=== PATIENT | female | born 1960 | race Caucasian/White ===

== ENCOUNTER 2017-07-27 08:52 | Emergency (ER) | payer MEDICAID ==
[2017-07-27] MEDS ORDERED: SODIUM CHLORIDE 0.9% 1,000 ML IV ONE (09:24)
[2017-07-27] MEDS ORDERED: METOPROLOL 5 MG/5 ML VIAL IVP STA (09:25)
--- NOTE | 2017-07-27 09:28 | ED Physician Documentation ---
PD HPI CHEST PAIN - Stated complaint Stated Complaint: CHEST PX - Chief complaint Chief Complaint: Cardiac - History obtained from History obtained from: Patient - History of Present Illness Timing - onset: How many days ago (5) Timing - onset during: Light activity Timing - duration: Days (5) Timing - details: Gradual onset, Still present, Waxing and waning Quality: Pressure Location: Substernal, Other (upper chest) Improved by: Rest Worsened by: Exertion Associated symptoms: Shortness of air, Diaphoresis, Nausea, Cough Similar symptoms before: Has not had sx before Recently seen: Not recently seen - Additional information Additional information: 56-year-old female with a prior history of hypertension and borderline diabetes has developed pain in her shoulder blades about 5 days ago and this pain is progressively become worse and is worse with exertion. She does have 33 steps in her house she is been having to stop on the steps to rest and drink water to get the pain to go away. She has noted a increase in her symptoms over the past 24 hours and she is coming to the emergency department. She thought at first this may be a upper respiratory infection and expected it to improve. When symptoms worsened she became concerned and came in. She has a family history of coronary disease with her grandfather dying at age 56 she has multiple family members that have had early coronary disease. She herself has been off of treatment for hypertension since 2008 and does not currently take any medications. She last saw her primary in June. Review of Systems Constitutional: reports: Fatigue, Sweats. denies: Fever, Chills, Myalgias Eyes: denies: Decreased vision Ears: denies: Ear pain Nose: denies: Rhinorrhea / runny nose, Congestion Throat: denies: Sore throat Cardiac: reports: Chest pain / pressure. denies: Palpitations, Pedal edema, Calf pain Respiratory: reports: Dyspnea, Cough GI: denies: Abdominal Pain, Nausea, Vomiting : denies: Dysuria, Frequency Skin: denies: Rash Musculoskeletal: reports: Back pain. denies: Neck pain Neurologic: denies: Generalized weakness, Focal weakness, Numbness, Difficulty speaking PD PAST MEDICAL HISTORY - Present Medications Home Medications: Ambulatory Orders Medication Instructions Recorded Confirmed No Known Home Medications [No 07/27/17 07/27/17 Known Home Medications] - Allergies Allergies/Adverse Reactions: Allergies Allergy/AdvReac Type Severity Reaction Status Date / Time codeine Allergy Unknown Verified 07/27/17 09:07 hydrocodone [From Vicodin] Allergy Unknown Verified 07/27/17 09:07 PD ED PE NORMAL - Vitals Vital signs reviewed: Yes (Marked hypertension) - General General: Alert and oriented X 3, No acute distress, Well developed/nourished - HEENT HEENT: Atraumatic, PERRL, EOMI, Other (Minimal inflammation of the right TM the mucous membranes are dry.) - Neck Neck: Supple, no meningeal sign, No bony TTP - Cardiac Cardiac: RRR, No murmur - Respiratory Respiratory: No respiratory distress, Clear bilaterally, Other (There is no tenderness to the chest wall.) - Abdomen Abdomen: Soft, Non tender - Back Back: No CVA TTP, No spinal TTP - Derm Derm: Normal color, Warm and dry, No rash - Extremities Extremities: No deformity, No edema - Neuro Neuro: No motor deficit, No sensory deficit Eye Opening: Spontaneous Motor: Obeys Commands Verbal: Oriented GCS Score: 15 - Psych Psych: Normal mood, Normal affect Results - Vitals Vitals: Vital Signs - 24 hr 07/27/17 07/27/17 07/27/17 09:02 09:30 09:45 Temperature 36.5 C Heart Rate 77 81 78 Respiratory 18 20 Rate Blood Pressure 226/102 H 205/101 H 184/88 H O2 Saturation 98 97 07/27/17 07/27/17 07/27/17 09:50 10:10 10:15 Temperature Heart Rate 62 60 56 L Respiratory 20 Rate Blood Pressure 178/80 H 184/86 H 182/88 H O2 Saturation Oxygen O2 Source Room air - EKG (time done) 0905 Rate: Rate (enter#) (70) Rhythm: NSR Intervals: Prolonged QT Ischemia: T wave inversion (anterior) Compare to prior EKG: Old EKG unavailable Computer interpretation: Agree with computer - Labs Labs: Laboratory Tests 07/27/17 07/27/17 07/27/17 09:10 09:10 09:10 WBC 6.4 RBC 4.68 Hgb 13.7 Hct 40.2 MCV 85.8 MCH 29.3 MCHC 34.2 RDW 12.9 Plt Count 175 MPV 8.7 Neut # 3.9 Lymph # 1.8 [place] # 0.4 Eos # 0.2 Baso # 0.1 Absolute Nucleated RBC 0.00 Nucleated RBC % 0.0 Sodium 135 Potassium 4.1 Chloride 98 L Carbon Dioxide 22 Anion Gap 15.0 H BUN 15 Creatinine 1.0 Estimated GFR (MDRD) 58 L Glucose 310 H Calcium 9.4 Total Bilirubin 0.5 AST 27 ALT 22 Alkaline Phosphatase 69 Troponin I 0.05 Total Protein 7.6 Albumin 4.1 Globulin 3.5 Albumin/Globulin Ratio 1.2 Lipase 23 Urine Color Urine Clarity Urine pH Ur Specific [place] Urine Protein Urine Glucose (UA) Urine Ketones Urine Occult Blood Urine Nitrite Urine Bilirubin Urine Urobilinogen Ur Leukocyte Esterase Ur Microscopic Review Urine Culture Comments 07/27/17 09:53 WBC RBC Hgb Hct MCV MCH MCHC RDW Plt Count MPV Neut # Lymph # Dukes # Eos # Baso # Absolute Nucleated RBC Nucleated RBC % Sodium Potassium Chloride Carbon Dioxide Anion Gap BUN Creatinine Estimated GFR (MDRD) Glucose Calcium Total Bilirubin AST ALT Alkaline Phosphatase Troponin I Total Protein Albumin Globulin Albumin/Globulin Ratio Lipase Urine Color YELLOW Urine Clarity CLEAR Urine pH 7.0 Ur Specific [place] <=1.005 Urine Protein NEGATIVE Urine Glucose (UA) 500 H Urine Ketones NEGATIVE Urine Occult Blood NEGATIVE Urine Nitrite NEGATIVE Urine Bilirubin NEGATIVE Urine Urobilinogen 0.2 (NORMAL) Ur Leukocyte Esterase NEGATIVE Ur Microscopic Review NOT INDICATED Urine Culture Comments NOT INDICATED - Rads (name of study) 2 view chest Radiology: Prelim report reviewed (Impression: Normal two-view chest radiography.), EMP read indepedently, See rad report Procedures - IVC sono (time) 0920 Bedside IVC sono: IVC measures (cm) (1.2), IVC collapsed c insp (cm) (complete) , Dehydration PD MEDICAL DECISION MAKING - ED course Complexity details: reviewed old records, reviewed results, re-evaluated patient , considered differential, d/w patient ED course: 56-year-old female with a history of untreated hypertension presents with 5 days of exertionally related chest pain relieved by rest with progression of symptoms. Her initial electrocardiogram shows inversion of T waves in the anterior leads there is a troponin elevated at 0.05. She is initially given IV saline and metoprolol 5mg IV with improvement in her blood pressure and complaints of feeling dry. Dr. Dragan Sheffield is consulted in the case and will accept the patient in transfer and recommends nitro paste, aspirin and heparin. Departure - Departure Disposition: 02 Transfer Acute Care Hosp Clinical Impression: Unstable angina Condition: Fair
[2017-07-27 09:31] LABS: BASOPHILS # (AUTO) 0.1 10^3/uL (0.0-0.1); EOSINOPHILS # (AUTO) 0.2 10^3/uL (0.0-0.7); EOSINOPHILS % (AUTO) 2.9 %; HCT - HEMATOCRIT 40.2 % (37.0-47.0); HGB - HEMOGLOBIN 13.7 g/dL (12.0-16.0); LYMPHOCYTES # (AUTO) 1.8 10^3/uL (1.5-3.5); LYMPHOCYTES % (AUTO) 28.3 %; MEAN CORPUSCULAR HEMOGLOBIN 29.3 pg (27.0-31.0); MEAN CORPUSCULAR HGB CONC 34.2 g/dL (32.0-36.0); MEAN CORPUSCULAR VOLUME 85.8 fL (81.0-99.0); MEAN PLATELET VOLUME 8.7 fL (7.9-10.8); MONOCYTES # (AUTO) 0.4 10^3/uL (0.0-1.0); MONOCYTES % (AUTO) 6.8 %; NEUTROPHILS # (AUTO) 3.9 10^3/uL (1.5-6.6); RED BLOOD COUNT 4.68 10^6/uL (4.20-5.40); RED CELL DISTRIBUTION WIDTH 12.9 % (12.0-15.0); UNCORRECTED WHITE BLOOD COUNT 6.4 x10^3/uL; WHITE BLOOD COUNT 6.4 x10^3/uL (4.8-10.8)
[2017-07-27] MEDS ORDERED: METOPROLOL 5 MG/5 ML VIAL IVP ONE (09:36)
[2017-07-27 09:41] LABS: ALBUMIN/GLOBULIN RATIO 1.2 (1.0-2.2); BILIRUBIN,TOTAL 0.5 mg/dL (0.2-1.0); CALCIUM 9.4 mg/dL (8.5-10.3); POTASSIUM 4.1 mmol/L (3.5-5.0); TOTAL PROTEIN 7.6 g/dL (6.7-8.2)
[2017-07-27 10:20] LABS: BILIRUBIN,URINE NEGATIVE (NEGATIVE)
[2017-07-27 10:21] LABS: UA CHARGE (STRIP ONLY) YES; UR CULTURE IF IND NOT INDICATED
--- NOTE | 2017-07-27 10:37 | XRAY Preliminary Report ---
Exam: XR CHEST 2 VIEW PA/LAT IMPRESSION: Normal 2-view chest radiography. [facility] SITE ID: [id number]
--- NOTE | 2017-07-27 10:40 | XRAY Report ---
EXAM: CHEST RADIOGRAPHY EXAM DATE: 07/27/2017 10:09 AM. CLINICAL HISTORY: Chest pain . COMPARISON: 09/05/2010. TECHNIQUE: 2 views. FINDINGS: Lungs/Pleura: No focal opacities evident. No pleural effusion. No pneumothorax. Normal volumes. Mediastinum: Heart and mediastinal contours are unremarkable. Other: None. IMPRESSION: Normal 2-view chest radiography. [facility] Referring Provider Line: [phone] SITE ID: [id number]
[2017-07-27] MEDS ORDERED: ASPIRIN CHEW 81 MG TABLET PO STA (11:05)
[2017-07-27] MEDS ORDERED: HEPARIN 5,000 UNIT/ML VIAL IVP ONE (11:05)
[2017-07-27] MEDS ORDERED: NITROGLYCERIN 2% PASTE TOP STA (11:06)
[2017-07-27] MEDS ORDERED: NITROGLYCERIN 2% PASTE TOP ONE (11:19)
[2017-07-27] MEDS ORDERED: HEPARIN 5,000 UNIT/ML VIAL ONE (11:20)
[2017-07-27] MEDS ORDERED: ASPIRIN CHEW 81 MG TABLET ONE (11:20)
[2017-07-27 13:01] VITALS: BP 223/105
== END 2017-07-27 13:00 | disposition short-term general hospital (02) ==
LOC: ED 08:52
DX: I20.0 Unstable angina (principal); I10 Essential (primary) hypertension; R73.03 Prediabetes
CPT/HCPCS: 36415; 71020; 80053; 81003; 83690; 84484; 85025; 93005; 96361; 96374; 96375; 99284; A9270; 81001; 87086

== ENCOUNTER 2017-07-27 13:15 | Outpatient (CLI) | payer MEDICAID | END 2017-07-27 13:16 | disposition short-term general hospital (02) | LOC: EMS 13:15 | PROVIDERS: ATTEND Surgery | DX: I20.0 Unstable angina (principal) | CPT/HCPCS: A0425; A0426 ==

== ENCOUNTER 2017-08-08 15:22 | Observation (INO) | payer MEDICAID ==
[2017-08-08 15:42] LABS: BASOPHILS % (AUTO) 0.5 %; EOSINOPHILS # (AUTO) 0.2 10^3/uL (0.0-0.7); EOSINOPHILS % (AUTO) 2.5 %; HCT - HEMATOCRIT 39.1 % (37.0-47.0); HGB - HEMOGLOBIN 13.4 g/dL (12.0-16.0); LYMPHOCYTES # (AUTO) 2.5 10^3/uL (1.5-3.5); LYMPHOCYTES % (AUTO) 28.7 %; MEAN CORPUSCULAR HEMOGLOBIN 29.2 pg (27.0-31.0); MEAN CORPUSCULAR HGB CONC 34.3 g/dL (32.0-36.0); MEAN CORPUSCULAR VOLUME 85.1 fL (81.0-99.0); MEAN PLATELET VOLUME 9.5 fL (7.9-10.8); MONOCYTES # (AUTO) 0.7 10^3/uL (0.0-1.0); MONOCYTES % (AUTO) 8.2 %; NEUTROPHILS # (AUTO) 5.2 10^3/uL (1.5-6.6); NEUTROPHILS % (AUTO) 60.1 %; RED CELL DISTRIBUTION WIDTH 12.9 % (12.0-15.0); UNCORRECTED WHITE BLOOD COUNT 8.7 x10^3/uL; WHITE BLOOD COUNT 8.7 x10^3/uL (4.8-10.8)
[2017-08-08] MEDS ORDERED: ASPIRIN CHEW 81 MG TABLET PO STA (15:45)
[2017-08-08] MEDS ORDERED: NITROGLYCERIN 2% PASTE TOP STA (15:45)
[2017-08-08] MEDS ORDERED: METOPROLOL 5 MG/5 ML VIAL IVP STA (15:45)
--- NOTE | 2017-08-08 15:47 | ED Physician Documentation ---
PD HPI CHEST PAIN - Stated complaint Stated Complaint: CHEST PRESSURE/RAPID HR - Chief complaint Chief Complaint: Cardiac - History obtained from History obtained from: Patient - History of Present Illness Timing - onset: Other (56-year-old woman who about 10 days ago was transferred from [facility] to [facility] for chest pain, she was found to have coronary disease. Per her description she has single stent placed in the right coronary artery and she also had left coronary disease which is being medically managed. She has felt well since discharge and is on all of her medications which she is compliant with. Today at around 11 AM she started to feel central chest burning with sensation of a heavy heartbeat, this is similar but less severe than her prior anginal equivalent but led her to have the evaluation recently.) Review of Systems Ten Systems: 10 systems reviewed and negative Constitutional: reports: Reviewed and negative Eyes: reports: Reviewed and negative Ears: reports: Reviewed and negative Nose: reports: Reviewed and negative Cardiac: reports: Chest pain / pressure, Palpitations. denies: Pedal edema, Calf pain Respiratory: denies: Dyspnea, Cough GI: denies: Abdominal Pain PD PAST MEDICAL HISTORY - Past Medical History Past Medical History: Yes Cardiovascular: Hypertension, High cholesterol, Coronary artery disease Endocrine/Autoimmune: Type 2 diabetes - Past Surgical History Past Surgical History: Yes General: Other - Present Medications Home Medications: Ambulatory Orders Medication Instructions Recorded Confirmed Aspirin Chewable [St Oleg 81 mg PO DAILY 08/08/17 08/08/17 Aspirin] Atorvastatin Calcium 40 mg PO DAILY 08/08/17 08/08/17 Clopidogrel Bisulfate [Clopidogrel] 75 mg PO DAILY 08/08/17 08/08/17 Lisinopril 10 mg PO DAILY 08/08/17 08/08/17 Lorazepam [Ativan] 0.5 mg PO PRN PRN 08/08/17 08/08/17 Metformin HCl 500 mg PO BID 08/08/17 08/08/17 Metoprolol Succinate [Toprol Xl] 25 mg PO DAILY 08/08/17 08/08/17 Thyroid,Pork [Nature-Throid] 65 mg PO DAILY 08/08/17 08/08/17 - Allergies Allergies/Adverse Reactions: Allergies Allergy/AdvReac Type Severity Reaction Status Date / Time codeine Allergy Unknown Verified 07/27/17 09:07 hydrocodone [From Vicodin] Allergy Unknown Verified 07/27/17 09:07 - Social History Does the pt smoke?: No Smoking Status: Never smoker Does the pt drink ETOH?: No Does the pt have substance abuse?: No - Family History Family history: reports: Non contributory PD ED PE NORMAL - Vitals Vital signs reviewed: Yes - General General: Alert and oriented X 3, No acute distress - HEENT HEENT: PERRL, EOMI - Neck Neck: Supple, no meningeal sign, No bony TTP - Cardiac Cardiac: RRR, No murmur - Respiratory Respiratory: No respiratory distress, Clear bilaterally - Abdomen Abdomen: Normal bowel sounds, Soft, Non tender - Back Back: No CVA TTP, No spinal TTP - Extremities Extremities: No edema, No calf tenderness / cord - Neuro Neuro: Alert and oriented X 3, Normal speech - Psych Psych: Normal mood, Normal affect Results - Vitals Vitals: Vital Signs - 24 hr 08/08/17 08/08/17 08/08/17 15:24 15:58 15:59 Temperature 36.7 C Heart Rate 73 66 Respiratory 17 16 Rate Blood Pressure 192/78 H 175/77 H 149/71 H O2 Saturation 96 96 08/08/17 08/08/17 16:04 16:06 Temperature Heart Rate 65 63 Respiratory 16 16 Rate Blood Pressure 136/62 H 130/68 O2 Saturation 98 96 Oxygen O2 Source Room air - Labs Labs: Laboratory Tests 08/08/17 08/08/17 08/08/17 15:30 15:30 15:30 WBC 8.7 RBC 4.60 Hgb 13.4 Hct 39.1 MCV 85.1 MCH 29.2 MCHC 34.3 RDW 12.9 Plt Count 198 MPV 9.5 Neut # 5.2 Lymph # 2.5 [place] # 0.7 Eos # 0.2 Baso # 0.0 Absolute Nucleated RBC 0.00 Nucleated RBC % 0.0 Sodium 136 Potassium 4.0 Chloride 101 Carbon Dioxide 22 Anion Gap 13.0 BUN 15 Creatinine 1.1 H Estimated GFR (MDRD) 52 L Glucose 183 H Calcium 9.7 Total Bilirubin 0.5 AST 24 ALT 24 Alkaline Phosphatase 74 Troponin I < 0.04 Total Protein 7.8 Albumin 4.6 Globulin 3.2 Albumin/Globulin Ratio 1.4 Lipase 31 PD MEDICAL DECISION MAKING - ED course ED course: 56-year-old woman with recent coronary angiography with intervention to the right coronary artery and per her description left coronary disease that is being medically managed presents with recurrent chest pain similar to prior angina. Her EKG is notable for deeply inverted T waves in the anterior precordium. I spoke with Dr. Ambrose about, the implementation engineer on-call for that group at 4:05 PM and he will review the records and call me back. He called back after reviewing her angiogram, she had a discrete lesion in the right coronary which was stented, and has diffuse disease of the LAD which can only be medically managed, she is not a candidate for stenting or grafting given the diffuse nature of that disease. Call to Dr Jaimes for admit [id number] Departure - Departure Disposition: ED Place in Observation Clinical Impression: Unstable angina Condition: Stable
[2017-08-08 15:51] LABS: ALBUMIN/GLOBULIN RATIO 1.4 (1.0-2.2); BILIRUBIN,TOTAL 0.5 mg/dL (0.2-1.0); CALCIUM 9.7 mg/dL (8.5-10.3); CREATININE 1.1 mg/dL (0.4-1.0); TOTAL PROTEIN 7.8 g/dL (6.7-8.2)
--- NOTE | 2017-08-08 15:51 | XRAY Preliminary Report ---
Exam: XR CHEST 1 VIEW IMPRESSION: 1. Stable AP chest. No acute cardiopulmonary findings radiographically. [facility] SITE ID: [id number]
--- NOTE | 2017-08-08 15:54 | XRAY Report ---
EXAM: CHEST RADIOGRAPHY EXAM DATE: 08/08/2017 03:40 PM. CLINICAL HISTORY: Chest pain. Coronary stent placed last week. COMPARISON: 07/27/2017. TECHNIQUE: 1 view. FINDINGS: Lungs/Pleura: No focal opacities or vascular congestion. No pleural effusion or pneumothorax. Mediastinum: Stable normal cardiomediastinal silhouette. Other: No acute fracture identified. IMPRESSION: 1. Stable AP chest. No acute cardiopulmonary findings radiographically. [facility] Referring Provider Line: [phone] SITE ID: [id number]
[2017-08-08] MEDS ORDERED: NITROGLYCERIN 2% PASTE TOP ONE (15:57)
[2017-08-08] MEDS ORDERED: ASPIRIN CHEW 81 MG TABLET ONE (15:58)
[2017-08-08] MEDS ORDERED: METOPROLOL 5 MG/5 ML VIAL IVP ONE (15:58)
[2017-08-08] MEDS ORDERED: PROCHLORPERAZINE 10 MG/2 ML VIAL IVP PRN (17:28)
[2017-08-08] MEDS ORDERED: SODIUM CHLORIDE FLUSH 0.9% 10 ML SYRINGE IVP PRN (17:28)
[2017-08-08] MEDS ORDERED: ACETAMINOPHEN 325 MG TABLET PO PRN (17:28)
[2017-08-08] MEDS ORDERED: NITROGLYCERIN 2% PASTE TOP SCH (18:00)
[2017-08-08] MEDS: SODIUM CHLORIDE FLUSH 0.9% 10 ML SYRINGE IVP SCH (21:22)
[2017-08-08] MEDS: LORazepam 0.5 MG TABLET PO PRN (21:22)
[2017-08-08] MEDS: NITROGLYCERIN 2% PASTE TOP SCH (23:52)
[2017-08-09 04:37] LABS: CHOL/HDL RATIO 2.5 (<4.4); CHOLESTEROL 96 mg/dL; HDL CHOLESTEROL 39 mg/dL; LDL/HDL RATIO 1.1 (<4.4); TRIGLYCERIDES 72 mg/dL; VLDL CHOLESTEROL 14 mg/dL
[2017-08-09] MEDS ORDERED: THYROID 60 MG TABLET PO SCH (06:00)
[2017-08-09] MEDS: NITROGLYCERIN 2% PASTE TOP SCH (07:38)
[2017-08-09] MEDS: SODIUM CHLORIDE FLUSH 0.9% 10 ML SYRINGE IVP SCH ×2 (07:39→14:53)
[2017-08-09] MEDS: metFORMIN 500 MG TABLET PO SCH ×2 (08:03→17:11)
[2017-08-09] MEDS ORDERED: CLOPIDOGREL 75 MG TABLET PO SCH (09:00)
[2017-08-09] MEDS ORDERED: ASPIRIN CHEW 81 MG TABLET PO SCH (09:00)
[2017-08-09] MEDS ORDERED: METOPROLOL SUCCINATE 25 MG TABLET PO SCH (09:00)
[2017-08-09] MEDS ORDERED: ENOXAPARIN 40 MG/0.4 ML SYRINGE SUBQ SCH (09:00)
[2017-08-09] MEDS ORDERED: POLYETHYLENE GLYCOL 3350 17 GM PACKET PO SCH (09:00)
[2017-08-09] MEDS ORDERED: ATORVASTATIN 40 MG TABLET PO SCH (09:00)
[2017-08-09] MEDS ORDERED: LISINOPRIL 20 MG TABLET PO SCH (09:00)
[2017-08-09] MEDS: ISOSORBIDE MONONITRATE ER 30 MG TABLET PO SCH ×2 (09:27→10:33)
[2017-08-09] MEDS: FAMOTIDINE 20 MG TABLET PO SCH ×2 (09:28→10:32)
[2017-08-09] MEDS: LORazepam 0.5 MG TABLET PO PRN (09:57)
[2017-08-09 13:19] VITALS: BP 132/65
--- NOTE | 2017-08-09 17:20 | Discharge Plan ---
Discharge Plan Disposition: Home, Self Care Condition: Stable Prescriptions: Nitroglycerin [Nitrostat] 0.4 mg SL Q5MIN PRN #100 tablet PRN Reason: Chest Pain Isosorbide Mononitrate ER [Imdur] 30 mg PO DAILY #30 tablet Diet: Cardiac Activity Restrictions: Activity as Tolerated Shower Restrictions: No Driving Restrictions: No Instruction Topics: Desiccated Thyroid oral tablets and capsules, Angina Unstable, Nitroglycerin Fast Acting Additional Instructions or Follow Up instructions: See your provider if needed for help with the thyroid medication. See your Manager Program as previously instructed. Take the new Imdur medication daily. ALSO, you can use a Nitroglycerine under the tongue if you get a sudden attack of chest pain (angina): be seated and you can take 1 tablet under the tongue every 5-10 minutes until the discomfort is resolved. If it's not better after 3 tablets, come to an Emergenct Room. Start attending Cardiac Rehab here. No Smoking: If you smoke, Please STOP! Call for help. Follow-up with: Nalini Mayers PA-C [Primary Care Provider] -
--- NOTE | 2017-08-29 13:22 | HISTORY & PHYSICAL EXAMINATION ---
DATE OF service/OBS Placement : 08/08/2017 Physician: Cortney Joiner MD CHIEF COMPLAINT: Chest pain. PAST MEDICAL HISTORY: Coronary artery disease with recent stenting in the right coronary artery, hypertension, hyperlipidemia, diabetes, obesity. HISTORY OF PRESENT ILLNESS: This is a 56-year-old white female with a history of elevated cholesterol, hypertension, diabetes, who was seen here approximately 10 days ago for chest pain and was transferred to the [facility] for coronary angiography. According to records, she had coronary artery disease, discrete in the right coronary artery where a stent was placed, and also diffuse disease in the left coronary system where no stenting could be done ,and the vessel was too small for bypass, therefore medical management was advised. The patient was discharged from [facility] with new medications and has been compliant with these. Since that admission, she has had no further chest pain until today, when she had chest pressure associated with palpitations, less severe than her prior discomfort, but she came to the emergency room. In the emergency room, she had resolution of her symptoms and none until I am seeing her now, stating she is nervous MEDICATIONS AT HOME 1. Baby aspirin daily. 2. Lipitor 40 mg daily. 3. Plavix 75 mg daily. 4. Lisinopril 10 mg daily. 5. Ativan 0.5 mg p.r.n. 6. Metformin 500 mg p.o. b.i.d. 7. Toprol-XL 25 mg daily. 8. Nature-Throid 65 mg p.o. daily. ALLERGIES 1. CODEINE. 2. HYDROCODONE. SOCIAL HISTORY: The patient never smoked, drinks no alcohol, denies any drug use. FAMILY HISTORY: No history of early coronary artery disease and no inherited history that she reports. REVIEW OF SYSTEMS: A comprehensive review of system was performed and is negative, except for the symptoms described above. PHYSICAL EXAMINATION GENERAL: White female who is in no distress. VITAL SIGNS: Blood pressure 130/68, pulse 60, sinus rhythm. Afebrile. Oxygen saturation 98 on room air. HEENT: Unremarkable with moist oral mucosa. NECK: No JVD or carotid bruits. No thyromegaly or lymphadenopathy. LUNGS: Clear. HEART: Heart sounds normal. No audible murmur. No gallop or heave. ABDOMEN: Soft with positive bowel sounds. Nontender. No organomegaly. EXTREMITIES: No clubbing, cyanosis, or edema. Good dorsalis pedis pulses. NEUROLOGIC: Grossly intact. STUDIES LABORATORY DATA: Normal electrolytes, normal BUN and creatinine. Troponin not detectable. Normal liver tests. Normal CBC. INR was not done. Chest x-ray unremarkable. EKG: Normal sinus rhythm with deep anterior T-wave inversions in V2 through V5 , as well as lateral minimal T-wave inversions in leads I and V6. IMPRESSION/DIAGNOSES 1. Unstable angina. 2. Coronary artery disease with recent stenting. 3. Diabetes. 4. Hypertension. 5. Hyperlipidemia. PLAN: Place the patient in observation on telemetry to watch for arrhythmias. Cycle troponins to rule out an acute coronary event. Follow her EKG for ischemic changes. Increase the patient's medical management since no further intervention can be done based on her coronary anatomy. Patient was discharged without any sublingual nitroglycerin or long-acting nitrates and therefore, these will be started. Continue with her other diabetic, hypertensive, and cardiac medications. There should also be consideration that she is a Plavix nonresponder, if adjusting her antianginals alone does not control her symptoms. It was advised that the patient start cardiac rehab as was discussed at the time of her discharge from [facility], since the patient has postponed this for unclear reasons, possibly because of the upcoming [place] holidays. DEEP VENOUS THROMBOSIS PROPHYLAXIS: Lovenox. CODE STATUS: FULL CODE. ATTESTATION: It is expected the patient will be discharged or transferred within 96 hours: Yes. TD: 08/29/2017 13:13 NIKO
--- NOTE | 2017-08-29 13:23 | DISCHARGE SUMMARY ---
DATE OF ADM/placement in OBS: 08/08/2017 DATE OF DISCHARGE: 08/09/2017 Physician: Cortney Joiner MD HISTORY OF PRESENT ILLNESS: This is a 56-year-old white female with diabetes, hypertension, coronary artery disease with stenting done approximately 10 days ago for unstable angina, who presented with unstable angina and was admitted for observation and management of her symptoms. HOSPITAL COURSE AND DISCHARGE DIAGNOSES 1. Unstable angina. The patient had additional medications begun for medical management of her coronary disease. Discussion with her coach professional athletes yesterday by our emergency room doctor confirmed that she had nothing else on the recent angiogram that was revascularizable. Patient ruled out for an ME by troponins done here, all were at nondetectable levels. The patient was started on long-acting nitrates and sublingual nitroglycerine. She had no further anginal episodes while here and was also assessed with activity, walking in the hallway, and on stairs. The patient was advised to have cardiac rehab begun and her appointment with Outpatient Cardiac Rehab was moved forward for her convenience. 2. Coronary disease with recent stenting. Her [facility] discharge medications were all continued including Plavix. It was noted that if she is a Plavix nonresponder, she could have continued symptoms and may need adjustment of her antiplatelet agent. This should be done in discussion with her coach professional athletes in followup after discharge. Continued risk factor management was advised and teaching was done while here. 3. Diabetes. Continue with her diet and medications. 4. Hypertension. Continue with her low-salt diet and medications. The addition of Imdur will also help blood pressure control. 5. Hyperlipidemia. Her labs were checked for cholesterol control and showed a total cholesterol of 72, LDL of 43, HDL of 39, and triglycerides of 72. She was advised to have increased fish, olive oil, and dietary management to improve her HDL. FOLLOWUP APPOINTMENT: Start cardiac rehab here in the upcoming weeks, follow up with her PCP as previously scheduled, follow up with her coach professional athletes as previously scheduled. DNR STATUS: FULL CODE. TOTAL TIME REQUIRED FOR THIS DISCHARGE: 30 minutes. TD: 08/29/2017 13:45 NIKO
== END 2017-08-09 18:20 | disposition home or self-care (01) ==
LOC: ED 15:22 → OBS 17:28
PROVIDERS: ADMIT Internal Medicine; ATTEND Internal Medicine
DX: I25.110 Atherosclerotic heart disease of native coronary artery with unstable angina pectoris (principal); E11.9 Type 2 diabetes mellitus without complications; I10 Essential (primary) hypertension; E78.5 Hyperlipidemia, unspecified; Z95.5 Presence of coronary angioplasty implant and graft; Z79.82 Long term (current) use of aspirin; Z79.84 Long term (current) use of oral hypoglycemic drugs; Z79.02 Long term (current) use of antithrombotics/antiplatelets; E66.9 Obesity, unspecified; Z68.32 Body mass index [BMI] 32.0-32.9, adult
CPT/HCPCS: 36415; 71010; 80053; 80061; 83690; 83721; 84443; 84484; 85025; 93005; 96372; 96374; 99284; 99285; A9270; G0378; J1650

== ENCOUNTER 2017-08-11 11:14 | Emergency (ER) | payer MEDICAID ==
[2017-08-11 11:41] LABS: BASOPHILS % (AUTO) 0.2 %; EOSINOPHILS # (AUTO) 0.2 10^3/uL (0.0-0.7); EOSINOPHILS % (AUTO) 2.5 %; HCT - HEMATOCRIT 37.1 % (37.0-47.0); HGB - HEMOGLOBIN 12.8 g/dL (12.0-16.0); LYMPHOCYTES # (AUTO) 1.9 10^3/uL (1.5-3.5); LYMPHOCYTES % (AUTO) 30.5 %; MEAN CORPUSCULAR HEMOGLOBIN 29.7 pg (27.0-31.0); MEAN CORPUSCULAR HGB CONC 34.5 g/dL (32.0-36.0); MEAN CORPUSCULAR VOLUME 85.9 fL (81.0-99.0); MEAN PLATELET VOLUME 9.4 fL (7.9-10.8); MONOCYTES # (AUTO) 0.4 10^3/uL (0.0-1.0); MONOCYTES % (AUTO) 6.7 %; NEUTROPHILS # (AUTO) 3.7 10^3/uL (1.5-6.6); NEUTROPHILS % (AUTO) 60.1 %; RED BLOOD COUNT 4.31 10^6/uL (4.20-5.40); RED CELL DISTRIBUTION WIDTH 13.2 % (12.0-15.0); UNCORRECTED WHITE BLOOD COUNT 6.1 x10^3/uL; WHITE BLOOD COUNT 6.1 x10^3/uL (4.8-10.8)
[2017-08-11 11:55] LABS: ALBUMIN/GLOBULIN RATIO 1.3 (1.0-2.2); BILIRUBIN,TOTAL 0.6 mg/dL (0.2-1.0); CALCIUM 9.9 mg/dL (8.5-10.3); CREATININE 1.1 mg/dL (0.4-1.0); POTASSIUM 4.4 mmol/L (3.5-5.0); TOTAL PROTEIN 7.8 g/dL (6.7-8.2)
--- NOTE | 2017-08-11 12:10 | XRAY Preliminary Report ---
Exam: XR CHEST 1 VIEW IMPRESSION: No acute cardiopulmonary abnormality. [facility] SITE ID: [id number]
--- NOTE | 2017-08-11 12:13 | XRAY Report ---
EXAM: CHEST RADIOGRAPHY EXAM DATE: 08/11/2017 11:36 AM. CLINICAL HISTORY: Chest pain. COMPARISON: 03/21/2017. TECHNIQUE: 1 view. FINDINGS: Lungs/Pleura: No focal opacities evident. No pleural effusion. No pneumothorax. Mediastinum: Within exam limitations, the cardiomediastinal contour is normal. Other: None. IMPRESSION: No acute cardiopulmonary abnormality. [facility] Referring Provider Line: [phone] SITE ID: [id number]
[2017-08-11] MEDS ORDERED: METOPROLOL SUCCINATE 25 MG TABLET PO STA (12:21)
--- NOTE | 2017-08-11 12:24 | ED Physician Documentation ---
PD HPI CHEST PAIN - Stated complaint Stated Complaint: FAST HR - Chief complaint Chief Complaint: Cardiac - History obtained from History obtained from: Patient - History of Present Illness Timing - onset: Other (56-year-old woman with known coronary disease, see my note from last visit, briefly she has a recently placed stent in the right coronary artery and diffuse disease of the LAD that can only be medically managed per her brick dropper. Today with activity she developed central chest burning and took nitroglycerin, after the second dose her heart started racing. Of note this morning her heart rate was 56 per her blood pressure meter, which she does not trust, but skipped her metoprolol because of that. Of note on her last visit, that was also a day she had skipped her metoprolol. She did take her metoprolol yesterday and felt great per her.) Review of Systems Ten Systems: 10 systems reviewed and negative Constitutional: denies: Fever, Chills Cardiac: reports: Chest pain / pressure, Palpitations. denies: Pedal edema, Calf pain Respiratory: denies: Dyspnea, Cough GI: reports: Nausea. denies: Abdominal Pain PD PAST MEDICAL HISTORY - Past Medical History Past Medical History: Yes Cardiovascular: Hypertension, High cholesterol, Coronary artery disease, Angina Respiratory: None Neuro: None Endocrine/Autoimmune: Type 2 diabetes GI: None : None HEENT: None Psych: Anxiety, Panic attacks Musculoskeletal: Osteoarthritis Derm: None - Past Surgical History Past Surgical History: Yes General: Other Ortho: Other Cardiovascular: Coronary stent - Present Medications Home Medications: Ambulatory Orders Medication Instructions Recorded Confirmed Aspirin Chewable [St Oleg 81 mg PO DAILY 08/08/17 08/08/17 Aspirin] Atorvastatin Calcium 40 mg PO QPM 08/08/17 08/08/17 Clopidogrel Bisulfate [Clopidogrel] 75 mg PO DAILY 08/08/17 08/08/17 Lisinopril 10 mg PO DAILY 08/08/17 08/08/17 Lorazepam [Ativan] 0.5 mg PO TID PRN 08/08/17 08/08/17 Metformin HCl 500 mg PO BIDWM 08/08/17 08/08/17 Metoprolol Succinate [Toprol Xl] 25 mg PO DAILY 08/08/17 08/08/17 Thyroid,Pork [Nature-Throid] 65 mg PO DAILY 08/08/17 08/08/17 Isosorbide Mononitrate ER [Imdur] 30 mg PO DAILY #30 tablet 08/09/17 LORazepam [Ativan] 0.5 mg PO Q8H PRN #0 tablet 08/09/17 Nitroglycerin [Nitrostat] 0.4 mg SL Q5MIN PRN #100 tablet 08/09/17 - Allergies Allergies/Adverse Reactions: Allergies Allergy/AdvReac Type Severity Reaction Status Date / Time codeine Allergy Unknown Verified 07/27/17 09:07 hydrocodone [From Vicodin] Allergy Unknown Verified 07/27/17 09:07 - Social History Does the pt smoke?: No Smoking Status: Never smoker Does the pt drink ETOH?: No Does the pt have substance abuse?: No - POLST Patient has POLST: No PD ED PE NORMAL - Vitals Vital signs reviewed: Yes (Heart rate about 70 on my examination) - General General: Alert and oriented X 3, No acute distress - HEENT HEENT: PERRL, EOMI - Neck Neck: Supple, no meningeal sign, No bony TTP - Cardiac Cardiac: RRR, No murmur - Respiratory Respiratory: No respiratory distress, Clear bilaterally - Extremities Extremities: No edema, No calf tenderness / cord - Neuro Neuro: Alert and oriented X 3, Normal speech Results - Vitals Vitals: Vital Signs - 24 hr 08/11/17 08/11/17 11:18 11:38 Temperature 36.4 C L Heart Rate 118 H 66 Respiratory 16 18 Rate Blood Pressure 175/85 H 131/77 H O2 Saturation 100 95 Oxygen O2 Source Room air - EKG (time done) 1121 Rate: Rate (enter#) (68) Rhythm: NSR [place]: Normal Intervals: Normal SC QRS: Normal Ischemia: T wave inversion (V1 through V4, similar to 2 days ago.) Compare to prior EKG: Unchanged from prior EKG Computer interpretation: Agree with computer - Labs Labs: Laboratory Tests 08/11/17 08/11/17 08/11/17 11:30 11:30 11:30 WBC 6.1 RBC 4.31 Hgb 12.8 Hct 37.1 MCV 85.9 MCH 29.7 MCHC 34.5 RDW 13.2 Plt Count 167 MPV 9.4 Neut # 3.7 Lymph # 1.9 [place] # 0.4 Eos # 0.2 Baso # 0.0 Absolute Nucleated RBC 0.00 Nucleated RBC % 0.0 Sodium 136 Potassium 4.4 Chloride 101 Carbon Dioxide 21 Anion Gap 14.0 H BUN 18 Creatinine 1.1 H Estimated GFR (MDRD) 52 L Glucose 192 H Calcium 9.9 Total Bilirubin 0.6 AST 26 ALT 22 Alkaline Phosphatase 64 Troponin I < 0.04 Total Protein 7.8 Albumin 4.4 Globulin 3.4 Albumin/Globulin Ratio 1.3 Lipase 24 PD MEDICAL DECISION MAKING - ED course ED course: 56-year-old woman with now what seems more like stable angina with palpitations after taking nitroglycerin on a date that she did not take her metoprolol because of low heart rates. Because we can only medically manage her coronary disease I recommended that she take at least half a dose of metoprolol unless her heart rate is very low, see the discharge instructions. Departure - Departure Disposition: 01 Home, Self Care Clinical Impression: Stable angina, Tachycardia Condition: Good Record reviewed to determine appropriate education?: Yes Instructions: Nitroglycerin Fast Act Dc, ED Chest Pain Angina Stable Comments: If you do not trust your blood pressure meter to register your pulse, you can purchase an [id number] pulse oximeter which should be quite cheap at the drugstore or online. On any date where your heart rate is between 50 and 60 take a half dose of your metoprolol, you can take the other half later in the day if your pulses higher than 60. If you are heart rate is below 50 do not take any of your metoprolol, you can take it later in the day if your pulse is 65 or greater. Follow-up with your brick dropper, next available appointment.
[2017-08-11 12:35] VITALS: BP 125/69
== END 2017-08-11 12:56 | disposition home or self-care (01) ==
LOC: ED 11:14
DX: I25.119 Atherosclerotic heart disease of native coronary artery with unspecified angina pectoris (principal); R00.0 Tachycardia, unspecified; I10 Essential (primary) hypertension; E78.00 Pure hypercholesterolemia, unspecified; E11.9 Type 2 diabetes mellitus without complications; Z79.82 Long term (current) use of aspirin; Z95.5 Presence of coronary angioplasty implant and graft
CPT/HCPCS: 36415; 71010; 80053; 83690; 84484; 85025; 93005; 99283; A9270

== ENCOUNTER 2017-08-18 14:14 | Emergency (ER) | payer MEDICAID ==
[2017-08-18] MEDS ORDERED: NITROGLYCERIN 2% PASTE TOP STA (14:29)
[2017-08-18] MEDS ORDERED: ASPIRIN CHEW 81 MG TABLET PO STA (14:29)
--- NOTE | 2017-08-18 14:30 | ED Physician Documentation ---
PD HPI CHEST PAIN - Stated complaint Stated Complaint: HEART ISSUES - Chief complaint Chief Complaint: Cardiac - History obtained from History obtained from: Patient - History of Present Illness Timing - onset: Other (57-year-old woman, see my previous notes. Briefly she has known coronary disease, recently stented for a discrete lesion in the right coronary and had diffuse disease that can only be medically managed in the left anterior descending. She was seen by me 5 days ago for chest pain, has not had chest pain until today since. She developed her burning anterior anginal equivalent while riding in the car on the way to a . It is much better but not completely gone now after a couple of nitroglycerin. There is no radiation of the pain.) Review of Systems Ten Systems: 10 systems reviewed and negative Constitutional: reports: Reviewed and negative Nose: denies: Rhinorrhea / runny nose, Congestion Throat: denies: Sore throat Cardiac: denies: Pedal edema, Calf pain Respiratory: denies: Hemoptysis, Wheezing GI: denies: Nausea, Vomiting, Diarrhea PD PAST MEDICAL HISTORY - Past Medical History Cardiovascular: Hypertension, High cholesterol, Coronary artery disease, Angina Respiratory: None Neuro: None Endocrine/Autoimmune: Type 2 diabetes GI: None : None HEENT: None Psych: Anxiety, Panic attacks Musculoskeletal: Osteoarthritis Derm: None - Past Surgical History Past Surgical History: Yes General: Other Ortho: Other Cardiovascular: Coronary stent - Present Medications Home Medications: Ambulatory Orders Medication Instructions Recorded Confirmed Aspirin Chewable [St Oleg 81 mg PO DAILY 08/08/17 08/18/17 Aspirin] Atorvastatin Calcium 40 mg PO QPM 08/08/17 08/18/17 Clopidogrel Bisulfate [Clopidogrel] 75 mg PO DAILY 08/08/17 08/18/17 Lisinopril 10 mg PO DAILY 08/08/17 08/18/17 Lorazepam [Ativan] 0.5 mg PO TID PRN 08/08/17 08/18/17 Metformin HCl 500 mg PO BIDWM 08/08/17 08/18/17 Metoprolol Succinate [Toprol Xl] 25 mg PO DAILY 08/08/17 08/18/17 Thyroid,Pork [Nature-Throid] 65 mg PO DAILY 08/08/17 08/18/17 Isosorbide Mononitrate ER [Imdur] 30 mg PO DAILY #30 tablet 08/09/17 08/18/17 LORazepam [Ativan] 0.5 mg PO Q8H PRN #0 tablet 08/09/17 08/18/17 Nitroglycerin [Nitrostat] 0.4 mg SL Q5MIN PRN #100 tablet 08/09/17 08/18/17 Amlodipine Besylate [Norvasc] 2.5 mg PO DAILY #30 tablet 08/18/17 Isosorbide Mononitrate ER [Imdur] 60 mg PO DAILY #30 tablet 08/18/17 - Allergies Allergies/Adverse Reactions: Allergies Allergy/AdvReac Type Severity Reaction Status Date / Time codeine Allergy Unknown Verified 07/27/17 09:07 hydrocodone [From Vicodin] Allergy Unknown Verified 07/27/17 09:07 - Social History Does the pt smoke?: No Smoking Status: Never smoker Does the pt drink ETOH?: No Does the pt have substance abuse?: No - Family History Family history: reports: Non contributory - POLST Patient has POLST: No PD ED PE NORMAL - Vitals Vital signs reviewed: Yes - General General: Alert and oriented X 3, No acute distress - HEENT HEENT: PERRL, EOMI - Neck Neck: Supple, no meningeal sign, No bony TTP - Cardiac Cardiac: RRR, No murmur - Respiratory Respiratory: No respiratory distress, Clear bilaterally - Abdomen Abdomen: Normal bowel sounds, Soft, Non tender - Back Back: No CVA TTP, No spinal TTP - Extremities Extremities: No edema, No calf tenderness / cord - Neuro Neuro: Alert and oriented X 3, Normal speech - Psych Psych: Normal mood, Normal affect Results - Vitals Vitals: Vital Signs - 24 hr 08/18/17 08/18/17 08/18/17 14:21 15:00 16:46 Heart Rate 67 58 L 66 Respiratory 14 16 17 Rate Blood Pressure 166/78 H 132/65 H 130/74 O2 Saturation 100 99 96 Oxygen O2 Source Room air - EKG (time done) 1429 Rate: Rate (enter#) (59) Rhythm: NSR [place]: Normal Intervals: Normal NV QRS: Normal Ischemia: T wave inversion (She has persistent T-wave inversion in the anterior precordial leads, when compared to the last EKG on file, 7 days ago, the T-wave inversion is actually less prominent than it was then.) Compare to prior EKG: Changed from prior EKG (SEE ABOVE) Computer interpretation: Agree with computer 1706 Rate: Rate (enter#) (56) Rhythm: NSR [place]: Normal Intervals: Normal NV QRS: Normal Ischemia: T wave inversion (V1-V4, similar to EKG earlier in the evening) Compare to prior EKG: Unchanged from prior EKG Computer interpretation: Agree with computer - Labs Labs: Laboratory Tests 08/18/17 08/18/17 08/18/17 14:58 14:58 14:58 WBC 6.6 RBC 4.47 Hgb 13.0 Hct 38.4 MCV 85.9 MCH 29.1 MCHC 33.9 RDW 13.0 Plt Count 174 MPV 9.9 Neut # 4.2 Lymph # 1.7 Tift # 0.5 Eos # 0.2 Baso # 0.1 Absolute Nucleated RBC 0.00 Nucleated RBC % 0.0 Sodium 136 Potassium 4.0 Chloride 103 Carbon Dioxide 23 Anion Gap 10.0 BUN 20 Creatinine 0.9 Estimated GFR (MDRD) 65 L Glucose 131 H Calcium 9.5 Total Bilirubin 0.5 AST 19 ALT 20 Alkaline Phosphatase 64 Troponin I < 0.04 Total Protein 7.6 Albumin 4.4 Globulin 3.2 Albumin/Globulin Ratio 1.4 Lipase 26 PD MEDICAL DECISION MAKING - ED course ED course: 57-year-old woman with rest angina and known coronary disease. Pain resolved in the ED. Biomarkers are negative. Case discussed by phone with Dr. Arrington, on-call for their cardiology group who reviewed her recent cath and agreed with what I had had been previously told, that her LAD has a fairly tight lesion that is not amenable to any intervention. He recommended increasing her imdur to 60 mg once a day and adding a very low dose of amlodipine, they will call her to follow-up in a couple of days. Departure - Departure Disposition: 01 Home, Self Care Clinical Impression: Stable angina Condition: Good Record reviewed to determine appropriate education?: Yes Instructions: ED Chest Pain Angina Stable Prescriptions: Amlodipine Besylate [Norvasc] 2.5 mg PO DAILY #30 tablet Isosorbide Mononitrate ER [Imdur] 60 mg PO DAILY #30 tablet Comments: I spoke with Dr Sheffield's partner today, Dr Arrington who recommended increasing the imdur to 60mg a day (so stop taking the 30mg pill and take the 60mg one instead). Also adding another blood pressure medication (amlodipine), both are prescribed. They will call you on Saturday. Discharge Date/Time: 08/18/17 17:37
[2017-08-18 15:24] LABS: BASOPHILS # (AUTO) 0.1 10^3/uL (0.0-0.1); BASOPHILS % (AUTO) 1.2 %; EOSINOPHILS # (AUTO) 0.2 10^3/uL (0.0-0.7); EOSINOPHILS % (AUTO) 2.4 %; HCT - HEMATOCRIT 38.4 % (37.0-47.0); LYMPHOCYTES # (AUTO) 1.7 10^3/uL (1.5-3.5); LYMPHOCYTES % (AUTO) 25.4 %; MEAN CORPUSCULAR HEMOGLOBIN 29.1 pg (27.0-31.0); MEAN CORPUSCULAR HGB CONC 33.9 g/dL (32.0-36.0); MEAN CORPUSCULAR VOLUME 85.9 fL (81.0-99.0); MEAN PLATELET VOLUME 9.9 fL (7.9-10.8); MONOCYTES # (AUTO) 0.5 10^3/uL (0.0-1.0); MONOCYTES % (AUTO) 7.4 %; NEUTROPHILS # (AUTO) 4.2 10^3/uL (1.5-6.6); NEUTROPHILS % (AUTO) 63.6 %; RED BLOOD COUNT 4.47 10^6/uL (4.20-5.40); UNCORRECTED WHITE BLOOD COUNT 6.6 x10^3/uL; WHITE BLOOD COUNT 6.6 x10^3/uL (4.8-10.8)
[2017-08-18 15:37] LABS: ALBUMIN/GLOBULIN RATIO 1.4 (1.0-2.2); BILIRUBIN,TOTAL 0.5 mg/dL (0.2-1.0); CALCIUM 9.5 mg/dL (8.5-10.3); CREATININE 0.9 mg/dL (0.4-1.0); TOTAL PROTEIN 7.6 g/dL (6.7-8.2)
[2017-08-18 16:50] VITALS: BP 130/74
== END 2017-08-18 17:37 | disposition home or self-care (01) ==
LOC: ED 14:14
DX: I25.119 Atherosclerotic heart disease of native coronary artery with unspecified angina pectoris (principal); I10 Essential (primary) hypertension; E78.00 Pure hypercholesterolemia, unspecified; E11.9 Type 2 diabetes mellitus without complications; Z79.84 Long term (current) use of oral hypoglycemic drugs; M19.90 Unspecified osteoarthritis, unspecified site; Z79.82 Long term (current) use of aspirin
CPT/HCPCS: 36415; 80053; 83690; 84484; 85025; 93005; 99284; 99285; A9270

== ENCOUNTER 2017-10-14 11:27 | Emergency (ER) | payer MEDICAID ==
[2017-10-14 12:01] LABS: BASOPHILS # (AUTO) 0.1 10^3/uL (0.0-0.1); EOSINOPHILS # (AUTO) 0.2 10^3/uL (0.0-0.7); EOSINOPHILS % (AUTO) 2.5 %; HGB - HEMOGLOBIN 13.2 g/dL (12.0-16.0); LYMPHOCYTES # (AUTO) 1.7 10^3/uL (1.5-3.5); MEAN CORPUSCULAR HEMOGLOBIN 29.8 pg (27.0-31.0); MEAN CORPUSCULAR HGB CONC 34.6 g/dL (32.0-36.0); MEAN CORPUSCULAR VOLUME 86.2 fL (81.0-99.0); MEAN PLATELET VOLUME 8.9 fL (7.9-10.8); MONOCYTES # (AUTO) 0.5 10^3/uL (0.0-1.0); MONOCYTES % (AUTO) 8.4 %; NEUTROPHILS # (AUTO) 3.5 10^3/uL (1.5-6.6); NEUTROPHILS % (AUTO) 59.1 %; PLT - PLATELET COUNT 175 10^3/uL (130-450); RED BLOOD COUNT 4.41 10^6/uL (4.20-5.40); RED CELL DISTRIBUTION WIDTH 13.6 % (12.0-15.0)
[2017-10-14 12:17] LABS: ALBUMIN 4.6 g/dL (3.2-5.5); ALBUMIN/GLOBULIN RATIO 1.5 (1.0-2.2); BILIRUBIN,TOTAL 0.5 mg/dL (0.2-1.0); CALCIUM 9.5 mg/dL (8.5-10.3); CREATININE 0.9 mg/dL (0.4-1.0); TOTAL PROTEIN 7.6 g/dL (6.7-8.2)
--- NOTE | 2017-10-14 12:40 | XRAY Report ---
EXAM: CHEST RADIOGRAPHY EXAM DATE: 10/14/2017 12:29 PM. CLINICAL HISTORY: Chest pain. Unstable angina. Elevated blood pressure. COMPARISON: Chest x-ray 08/11/2017. TECHNIQUE: 2 views. FINDINGS: Lungs/Pleura: No focal opacities evident. No pleural effusion. No pneumothorax. Normal volumes. Mediastinum: Heart and mediastinal contours are unremarkable. Other: Mild thoracic spine degenerative changes. IMPRESSION: No consolidation evident. [facility] Referring Provider Line: [phone] SITE ID: [id number]
[2017-10-14 13:45] VITALS: BP 128/80
--- NOTE | 2017-10-14 13:47 | ED Physician Documentation ---
PD HPI CHEST PAIN - Stated complaint Stated Complaint: EPIGASTRIC PAIN - Chief complaint Chief Complaint: Cardiac - History obtained from History obtained from: Patient, Family - History of Present Illness Timing - onset: How many days ago (3) Timing - onset during: Rest Timing - duration: Days (3) Timing - details: Gradual onset, Constant Pain level max: 2 Pain level now: 2 Quality: Pressure, Aching Location: Epigastric Radiation: Other (Nonradiating) Improved by: Nothing Worsened by: Other (nothing) Associated symptoms: No: Shortness of air, Diaphoresis, Nausea, Vomiting, Feeling faint / dizzy, General Weakness, Palpitations, Cough Similar symptoms before: Diagnosis (Has had heart problems in the past, had a cardiac stents in July of last year. Has not had any trouble since then other than when she was here in August for similar symptoms. No CA at that time) Recently seen: Other (Who was in cardiac rehab today when she told her nurses about the epigastric pain she has had for several days and was sent here for evaluation) Review of Systems Ten Systems: 10 systems reviewed and negative Constitutional: denies: Fever, Chills, Myalgias Ears: denies: Ear pain Nose: denies: Rhinorrhea / runny nose, Congestion Throat: denies: Sore throat Cardiac: denies: Chest pain / pressure Respiratory: denies: Dyspnea, Cough, Hemoptysis, Wheezing GI: denies: Vomiting, Diarrhea, Hematemesis, Bloody / black stool : denies: Dysuria Skin: denies: Rash Musculoskeletal: denies: Neck pain, Back pain Neurologic: denies: Headache PD PAST MEDICAL HISTORY - Past Medical History Cardiovascular: Hypertension, High cholesterol, Coronary artery disease, Angina Respiratory: None Neuro: None Endocrine/Autoimmune: Type 2 diabetes GI: None : None HEENT: None Psych: Anxiety, Panic attacks Musculoskeletal: Osteoarthritis Derm: None - Past Surgical History Past Surgical History: Yes General: Other Ortho: Other Cardiovascular: Coronary stent - Present Medications Home Medications: Ambulatory Orders Medication Instructions Recorded Confirmed Aspirin Chewable [St Oleg 81 mg PO DAILY 08/08/17 08/18/17 Aspirin] Atorvastatin Calcium 40 mg PO QPM 08/08/17 08/18/17 Clopidogrel Bisulfate [Clopidogrel] 75 mg PO DAILY 08/08/17 08/18/17 Lisinopril 10 mg PO DAILY 08/08/17 08/18/17 Lorazepam [Ativan] 0.5 mg PO TID PRN 08/08/17 08/18/17 Metformin HCl 500 mg PO BIDWM 08/08/17 08/18/17 Metoprolol Succinate [Toprol Xl] 25 mg PO DAILY 08/08/17 08/18/17 Thyroid,Pork [Nature-Throid] 65 mg PO DAILY 08/08/17 08/18/17 Isosorbide Mononitrate ER [Imdur] 30 mg PO DAILY #30 tablet 08/09/17 08/18/17 LORazepam [Ativan] 0.5 mg PO Q8H PRN #0 tablet 08/09/17 08/18/17 Nitroglycerin [Nitrostat] 0.4 mg SL Q5MIN PRN #100 tablet 08/09/17 08/18/17 Amlodipine Besylate [Norvasc] 2.5 mg PO DAILY #30 tablet 08/18/17 Isosorbide Mononitrate ER [Imdur] 60 mg PO DAILY #30 tablet 08/18/17 - Allergies Allergies/Adverse Reactions: Allergies Allergy/AdvReac Type Severity Reaction Status Date / Time codeine Allergy Unknown Verified 07/27/17 09:07 hydrocodone [From Vicodin] Allergy Unknown Verified 07/27/17 09:07 - Social History Does the pt smoke?: No Smoking Status: Never smoker Does the pt drink ETOH?: No Does the pt have substance abuse?: No - POLST Patient has POLST: No PD ED PE NORMAL - Vitals Vital signs reviewed: Yes - General General: Alert and oriented X 3, Well developed/nourished, Other (Appears anxious) - HEENT HEENT: PERRL, Moist mucous membranes - Neck Neck: Supple, no meningeal sign - Cardiac Cardiac: RRR, Strong equal pulses - Respiratory Respiratory: No respiratory distress, Clear bilaterally - Abdomen Abdomen: Soft, Non tender, Non distended - Back Back: No CVA TTP, No spinal TTP - Derm Derm: Warm and dry, No rash - Extremities Extremities: No edema, No calf tenderness / cord - Neuro Neuro: Alert and oriented X 3 - Psych Psych: Normal mood, Normal affect Results - Vitals Vitals: Vital Signs - 24 hr 10/14/17 10/14/17 10/14/17 11:41 12:35 13:44 Temperature 36.4 C L Heart Rate 69 67 62 Respiratory 17 14 14 Rate Blood Pressure 164/74 H 144/79 H 128/80 O2 Saturation 98 98 97 Oxygen O2 Source Room air - EKG (time done) 1130 Rate: Rate (enter#) (66) Rhythm: NSR [place]: Normal Intervals: Normal IA QRS: Normal Ischemia: Normal ST segments - Labs Labs: Laboratory Tests 10/14/17 10/14/17 10/14/17 11:40 11:40 11:40 WBC 6.0 RBC 4.41 Hgb 13.2 Hct 38.0 MCV 86.2 MCH 29.8 MCHC 34.6 RDW 13.6 Plt Count 175 MPV 8.9 Neut # 3.5 Lymph # 1.7 Roberts # 0.5 Eos # 0.2 Baso # 0.1 Absolute Nucleated RBC 0.01 Nucleated RBC % 0.1 Sodium 134 L Potassium 3.9 Chloride 101 Carbon Dioxide 22 Anion Gap 11.0 BUN 19 Creatinine 0.9 Estimated GFR (MDRD) 65 L Glucose 167 H Calcium 9.5 Total Bilirubin 0.5 AST 21 ALT 20 Alkaline Phosphatase 61 Troponin I < 0.04 Total Protein 7.6 Albumin 4.6 Globulin 3.0 Albumin/Globulin Ratio 1.5 Lipase 15 L - Rads (name of study) cxr Radiology: Prelim report reviewed, EMP read contemporaneously, See rad report ( Normal) PD MEDICAL DECISION MAKING - ED course Complexity details: reviewed old records, reviewed results, re-evaluated patient , considered differential (No ST elevation CA, no aortic dissection, no PE, no tension pneumothorax, no aortic aneurysm), d/w patient, d/w family, d/w office 365 consultant ED course: Patient is a 57-year-old female with epigastric pain for the past several days. Does not sound cardiac in nature. No acute findings on EKG, x-ray. Negative troponin. Discussed the case with her senior treasury analyst's, Dr. Sheffield, partner Dr. Wright. Who recommends continuing her current medications and following up as scheduled in 2 weeks. Blood pressure decreased on its own in the emergency department. She is well-appearing, nontoxic. Patient and family counseled regarding signs and symptoms for which I believe and urgent re-evaluation would be necessary. Patient with good understanding of and agreement to plan and is comfortable going home at this time This document was made in part using voice recognition software. While efforts are made to proofread this document, sound alike and grammatical errors may occur. Departure - Departure Disposition: 01 Home, Self Care Clinical Impression: Chest pain Qualifiers: Chest pain type: unspecified Qualified Code(s): R07.9 - Chest pain, unspecified Condition: Good Instructions: ED Heart Disease Risk Factors Follow-Up: Nalini Mayers PA-C [Primary Care Provider] - Dragan Sheffield MD [Physician No Access] - (as scheduled) Comments: Return if you worsen. your tests are normal today. I spoke with Dr. Sheffield's partner today as he is out of the office. Follow up as scheduled. Discharge Date/Time: 10/14/17 13:55
== END 2017-10-14 13:55 | disposition home or self-care (01) ==
LOC: ED 11:27
DX: R07.9 Chest pain, unspecified (principal); I10 Essential (primary) hypertension; E78.00 Pure hypercholesterolemia, unspecified; E11.9 Type 2 diabetes mellitus without complications; I25.10 Atherosclerotic heart disease of native coronary artery without angina pectoris; Z79.84 Long term (current) use of oral hypoglycemic drugs; Z95.5 Presence of coronary angioplasty implant and graft; Z79.82 Long term (current) use of aspirin
CPT/HCPCS: 36415; 71046; 80053; 83690; 84484; 85025; 93005; 99283; 99284

== ENCOUNTER 2017-12-13 08:00 | Outpatient (CLI) | payer MEDICAID ==
[2017-12-13 12:42] LABS: BASOPHILS # (AUTO) 0.1 10^3/uL (0.0-0.1); BASOPHILS % (AUTO) 1.2 %; EOSINOPHILS # (AUTO) 0.2 10^3/uL (0.0-0.7); EOSINOPHILS % (AUTO) 3.4 %; HGB - HEMOGLOBIN 13.1 g/dL (12.0-16.0); LYMPHOCYTES # (AUTO) 1.8 10^3/uL (1.5-3.5); MEAN CORPUSCULAR HEMOGLOBIN 29.6 pg (27.0-31.0); MEAN CORPUSCULAR HGB CONC 33.7 g/dL (32.0-36.0); MEAN CORPUSCULAR VOLUME 87.7 fL (81.0-99.0); MEAN PLATELET VOLUME 9.1 fL (7.9-10.8); MONOCYTES # (AUTO) 0.4 10^3/uL (0.0-1.0); MONOCYTES % (AUTO) 7.8 %; NEUTROPHILS # (AUTO) 2.8 10^3/uL (1.5-6.6); NEUTROPHILS % (AUTO) 53.6 %; PLT - PLATELET COUNT 178 10^3/uL (130-450); RED BLOOD COUNT 4.45 10^6/uL (4.20-5.40); RED CELL DISTRIBUTION WIDTH 13.4 % (12.0-15.0); WHITE BLOOD COUNT 5.3 x10^3/uL (4.8-10.8)
[2017-12-13 13:06] LABS: ALBUMIN 4.5 g/dL (3.2-5.5); ALBUMIN/GLOBULIN RATIO 1.4 (1.0-2.2); ALKALINE PHOSPHATASE 51 IU/L (42-121); ALT ALANINE AMINOTRANSFERASE 18 IU/L (10-60); AST ASPARTATE AMINOTRANSFERASE 19 IU/L (10-42); BILIRUBIN,TOTAL 0.4 mg/dL (0.2-1.0); BUN - BLOOD UREA NITROGEN 21 mg/dL (6-20); CALCIUM 9.4 mg/dL (8.5-10.3); CARBON DIOXIDE - CO2 24 mmol/L (21-32); CHLORIDE 104 mmol/L (101-111); CHOL/HDL RATIO 2.7 (<4.4); CHOLESTEROL 128 mg/dL; CREATININE 0.9 mg/dL (0.4-1.0); GFR - MDRD 65 (>89); GLUCOSE 124 mg/dL (70-100); HDL CHOLESTEROL 47 mg/dL; LDL CHOLESTEROL,CALCULATED 58 mg/dL; LDL/HDL RATIO 1.2 (<4.4); SODIUM 135 mmol/L (135-145); TOTAL PROTEIN 7.7 g/dL (6.7-8.2); VLDL CHOLESTEROL 23 mg/dL
[2017-12-13 13:09] LABS: THYROID STIMULATING HORMONE 4.16 uIU/mL (0.34-5.60)
[2017-12-13 13:20] LABS: FOLATE 10.83 ng/mL (5.90 - >24.8)
[2017-12-13 13:25] LABS: HB2 TOTAL 14.2 g/dL; HEMOGLOBIN A1C 0.65 g/dL; HEMOGLOBIN A1C % 6.3 % (4.6-6.2)
== END 2017-12-13 08:01 | disposition home or self-care (01) ==
LOC: LAB.WCP 08:00
PROVIDERS: ATTEND Family Medicine
DX: E11.9 Type 2 diabetes mellitus without complications (principal); E03.9 Hypothyroidism, unspecified; I10 Essential (primary) hypertension; E54 Ascorbic acid deficiency
CPT/HCPCS: 36415; 80053; 80061; 82043; 82306; 82607; 82746; 83036; 83721; 84443; 85025

== ENCOUNTER 2018-03-30 14:00 | Emergency (ER) | payer MEDICAID ==
[2018-03-30 14:42] LABS: BASOPHILS # (AUTO) 0.1 10^3/uL (0.0-0.1); BASOPHILS % (AUTO) 1.2 %; EOSINOPHILS # (AUTO) 0.2 10^3/uL (0.0-0.7); EOSINOPHILS % (AUTO) 3.4 %; HGB - HEMOGLOBIN 12.6 g/dL (12.0-16.0); LYMPHOCYTES # (AUTO) 1.8 10^3/uL (1.5-3.5); LYMPHOCYTES % (AUTO) 29.8 %; MEAN CORPUSCULAR HEMOGLOBIN 29.9 pg (27.0-31.0); MEAN CORPUSCULAR HGB CONC 33.6 g/dL (32.0-36.0); MEAN CORPUSCULAR VOLUME 88.9 fL (81.0-99.0); MEAN PLATELET VOLUME 8.3 fL (7.9-10.8); MONOCYTES # (AUTO) 0.5 10^3/uL (0.0-1.0); MONOCYTES % (AUTO) 7.9 %; NEUTROPHILS # (AUTO) 3.5 10^3/uL (1.5-6.6); NEUTROPHILS % (AUTO) 57.7 %; PLT - PLATELET COUNT 164 10^3/uL (130-450); RED BLOOD COUNT 4.23 10^6/uL (4.20-5.40); RED CELL DISTRIBUTION WIDTH 13.3 % (12.0-15.0); WHITE BLOOD COUNT 6.1 x10^3/uL (4.8-10.8)
[2018-03-30 14:56] LABS: ALBUMIN/GLOBULIN RATIO 1.3 (1.0-2.2); BILIRUBIN,TOTAL 0.6 mg/dL (0.2-1.0); CALCIUM 8.9 mg/dL (8.5-10.3); CREATININE 0.9 mg/dL (0.4-1.0); TOTAL PROTEIN 7.1 g/dL (6.7-8.2)
--- NOTE | 2018-03-30 15:34 | XRAY Report ---
Procedure Date: 03/30/2018 Accession Number: [id number] / [id number] Procedure: XR - Chest 2 View X-Ray CPT Code: 87742 FULL RESULT: EXAM: CHEST RADIOGRAPHY EXAM DATE: 03/30/2018 03:02 PM. CLINICAL HISTORY: Chest pain. COMPARISON: 10/14/17. TECHNIQUE: 2 views. FINDINGS: Lungs/Pleura: No focal opacities evident. No pleural effusion. No pneumothorax. Normal volumes. Mediastinum: Heart and mediastinal contours are unremarkable. Other: None. IMPRESSION: Normal 2-view chest radiography. [facility]
--- NOTE | 2018-03-30 16:47 | ED Physician Documentation ---
PD HPI CHEST PAIN - Stated complaint Stated Complaint: CHEST PX/SOA - Chief complaint Chief Complaint: Cardiac - History obtained from History obtained from: Patient - History of Present Illness Timing - onset: Today (This is a very pleasant 57-year-old woman with known coronary disease. She has a single stent in the right coronary artery she also has non-intervene notable small coronary vessel disease on the left side that is medically managed. She has been feeling a little more short of breath over the last 3 days or so and today awoke with substernal chest pressure that got worse after taking nitroglycerin. And is not associated with eating and does not worsen if she exerts herself. The pain does not radiate.) Review of Systems Constitutional: denies: Fever, Chills Nose: reports: Rhinorrhea / runny nose Throat: denies: Sore throat Cardiac: reports: Chest pain / pressure. denies: Palpitations, Pedal edema, Calf pain Respiratory: reports: Dyspnea, Cough PD PAST MEDICAL HISTORY - Past Medical History Cardiovascular: Hypertension, High cholesterol, Coronary artery disease, Angina Respiratory: None Endocrine/Autoimmune: Type 2 diabetes GI: None : None HEENT: None Psych: Anxiety, Panic attacks Musculoskeletal: Osteoarthritis Derm: None - Past Surgical History Past Surgical History: Yes General: Other Ortho: Other Cardiovascular: Coronary stent - Present Medications Home Medications: Ambulatory Orders Medication Instructions Recorded Confirmed Aspirin Chewable [St Oleg 81 mg PO DAILY 08/08/17 08/18/17 Aspirin] Clopidogrel Bisulfate [Clopidogrel] 75 mg PO DAILY 08/08/17 08/18/17 Lisinopril 10 mg PO DAILY 08/08/17 08/18/17 Metformin HCl 500 mg PO BIDWM 08/08/17 08/18/17 Metoprolol Succinate [Toprol Xl] 25 mg PO DAILY 08/08/17 08/18/17 Nitroglycerin [Nitrostat] 0.4 mg SL Q5MIN PRN #100 tablet 08/09/17 08/18/17 Amlodipine Besylate [Norvasc] 2.5 mg PO DAILY #30 tablet 08/18/17 Isosorbide Mononitrate ER [Imdur] 60 mg PO DAILY #30 tablet 08/18/17 - Allergies Allergies/Adverse Reactions: Allergies Allergy/AdvReac Type Severity Reaction Status Date / Time codeine Allergy Unknown Verified 07/27/17 09:07 hydrocodone [From Vicodin] Allergy Unknown Verified 03/30/18 14:13 - Social History Does the pt smoke?: No Smoking Status: Never smoker Does the pt drink ETOH?: No Does the pt have substance abuse?: No - POLST Patient has POLST: No PD ED PE NORMAL - Vitals Vital signs reviewed: Yes - General General: Alert and oriented X 3, No acute distress - HEENT HEENT: PERRL, EOMI - Neck Neck: Supple, no meningeal sign, No bony TTP - Cardiac Cardiac: RRR, No murmur - Respiratory Respiratory: No respiratory distress, Clear bilaterally - Abdomen Abdomen: Normal bowel sounds, Soft, Non tender - Back Back: No CVA TTP, No spinal TTP - Derm Derm: Normal color, Warm and dry - Extremities Extremities: No edema, No calf tenderness / cord - Neuro Neuro: Alert and oriented X 3, Normal speech - Psych Psych: Normal mood, Normal affect Results - Vitals Vitals: Vital Signs - 24 hr 03/30/18 03/30/18 14:09 15:52 Temperature 36.6 C 36.7 C Heart Rate 75 67 Respiratory 18 20 Rate Blood Pressure 143/69 H 128/75 O2 Saturation 96 99 Oxygen O2 Source Room air - EKG (time done) 1400 Rate: Rate (enter#) (75) Rhythm: NSR [place]: Normal Intervals: Normal IN QRS: Normal Ischemia: Normal ST segments Computer interpretation: Agree with computer - Labs Labs: Laboratory Tests 03/30/18 03/30/18 03/30/18 14:36 14:36 14:36 WBC 6.1 RBC 4.23 Hgb 12.6 Hct 37.6 MCV 88.9 MCH 29.9 MCHC 33.6 RDW 13.3 Plt Count 164 MPV 8.3 Neut # (Auto) 3.5 Lymph # (Auto) 1.8 [place] # (Auto) 0.5 Eos # (Auto) 0.2 Baso # (Auto) 0.1 Absolute Nucleated RBC 0.00 Nucleated RBC % 0.0 Sodium 132 L Potassium 4.1 Chloride 103 Carbon Dioxide 21 Anion Gap 8.0 BUN 19 Creatinine 0.9 Estimated GFR (MDRD) 65 L Glucose 167 H Calcium 8.9 Total Bilirubin 0.6 AST 24 ALT 20 Alkaline Phosphatase 54 Troponin I < 0.04 Total Protein 7.1 Albumin 4.0 Globulin 3.1 Albumin/Globulin Ratio 1.3 Lipase 26 03/30/18 16:55 WBC RBC Hgb Hct MCV MCH MCHC RDW Plt Count MPV Neut # (Auto) Lymph # (Auto) [place] # (Auto) Eos # (Auto) Baso # (Auto) Absolute Nucleated RBC Nucleated RBC % Sodium Potassium Chloride Carbon Dioxide Anion Gap BUN Creatinine Estimated GFR (MDRD) Glucose Calcium Total Bilirubin AST ALT Alkaline Phosphatase Troponin I < 0.04 Total Protein Albumin Globulin Albumin/Globulin Ratio Lipase PD MEDICAL DECISION MAKING - ED course ED course: She has known cardiac coronary disease but She is under medical management only because of her anatomy. She has no EKG changes from prior and her troponin is negative 2. - Sepsis Event Vital Signs: Vital Signs - 24 hr 03/30/18 03/30/18 14:09 15:52 Temperature 36.6 C 36.7 C Heart Rate 75 67 Respiratory 18 20 Rate Blood Pressure 143/69 H 128/75 O2 Saturation 96 99 Oxygen O2 Source Room air Departure - Departure Disposition: 01 Home, Self Care Clinical Impression: Atypical chest pain Condition: Good Record reviewed to determine appropriate education?: Yes Instructions: ED Chest Pain Atypical Unkn Cause Comments: Call your skiver machine tomorrow to arrange for follow-up, return if worse or if new symptoms develop.
[2018-03-30 17:44] VITALS: BP 122/66
== END 2018-03-30 17:50 | disposition home or self-care (01) ==
LOC: ED 14:00
DX: R07.89 Other chest pain (principal); I25.10 Atherosclerotic heart disease of native coronary artery without angina pectoris; Z95.5 Presence of coronary angioplasty implant and graft; I10 Essential (primary) hypertension; E78.00 Pure hypercholesterolemia, unspecified; E11.9 Type 2 diabetes mellitus without complications; Z79.84 Long term (current) use of oral hypoglycemic drugs; Z79.82 Long term (current) use of aspirin
CPT/HCPCS: 36415; 71046; 80053; 83690; 84484; 85025; 93005; 99283; 99284

== ENCOUNTER 2018-04-25 16:47 | Emergency (ER) | payer MEDICAID ==
[2018-04-25] MEDS ORDERED: IOPAMIDOL-300 100 ML VIAL IVP ONE ×2 (16:48→19:22)
[2018-04-25 18:08] LABS: BASOPHILS # (AUTO) 0.1 10^3/uL (0.0-0.1); BASOPHILS % (AUTO) 1.6 %; EOSINOPHILS # (AUTO) 0.3 10^3/uL (0.0-0.7); EOSINOPHILS % (AUTO) 4.2 %; HGB - HEMOGLOBIN 13.1 g/dL (12.0-16.0); LYMPHOCYTES % (AUTO) 33.3 %; MEAN CORPUSCULAR HEMOGLOBIN 29.6 pg (27.0-31.0); MEAN CORPUSCULAR HGB CONC 34.5 g/dL (32.0-36.0); MEAN CORPUSCULAR VOLUME 85.9 fL (81.0-99.0); MEAN PLATELET VOLUME 8.3 fL (7.9-10.8); MONOCYTES # (AUTO) 0.5 10^3/uL (0.0-1.0); MONOCYTES % (AUTO) 8.3 %; NEUTROPHILS # (AUTO) 3.2 10^3/uL (1.5-6.6); NEUTROPHILS % (AUTO) 52.6 %; PLT - PLATELET COUNT 178 10^3/uL (130-450); RED BLOOD COUNT 4.41 10^6/uL (4.20-5.40); WHITE BLOOD COUNT 6.1 x10^3/uL (4.8-10.8)
[2018-04-25 18:23] LABS: ALBUMIN 4.4 g/dL (3.2-5.5); ALBUMIN/GLOBULIN RATIO 1.3 (1.0-2.2); BILIRUBIN,TOTAL 0.6 mg/dL (0.2-1.0); CALCIUM 9.4 mg/dL (8.5-10.3); TOTAL PROTEIN 7.7 g/dL (6.7-8.2)
[2018-04-25] MEDS ORDERED: ASPIRIN CHEW 81 MG TABLET PO STA (18:26)
[2018-04-25] MEDS ORDERED: SODIUM CHLORIDE 0.9% 1,000 ML IV ONE (18:26)
[2018-04-25] MEDS ORDERED: NITROGLYCERIN SL 0.4 MG TABLET SL STA (18:26)
[2018-04-25] MEDS ORDERED: MORPHINE 10 MG/ML VIAL IVP STA (18:26)
--- NOTE | 2018-04-25 18:29 | XRAY Report ---
Reason: chest pain Procedure Date: 04/25/2018 Accession Number: [id number] / [id number] Procedure: XR - Chest 2 View X-Ray CPT Code: 25664 FULL RESULT: EXAM: CHEST RADIOGRAPHY EXAM DATE: 04/25/2018 06:16 PM. CLINICAL HISTORY: Chest pain COMPARISON: CHEST 2 VIEW 03/30/2018. TECHNIQUE: 2 views. FINDINGS: Lungs/Pleura: No focal opacities evident. No pleural effusion. No pneumothorax. Normal volumes. Mediastinum: Heart and mediastinal contours are unremarkable. Other: None. IMPRESSION: No acute intrathoracic plain film abnormality. RADIA
[2018-04-25] MEDS ORDERED: IOPAMIDOL-300 100 ML VIAL ONE (18:32)
--- NOTE | 2018-04-25 19:31 | CT Report ---
Reason: right sided chest pain Procedure Date: 04/25/2018 Accession Number: [id number] / [id number] Procedure: CT - Chest Angio (PE) CPT Code: FULL RESULT: EXAM: CT ANGIOGRAM CHEST EXAM DATE: 04/25/2018 07:14 PM. CLINICAL HISTORY: Pain COMPARISON: None. TECHNIQUE: Routine helical imaging was performed through the chest in the pulmonary arterial phase. IV Contrast: 80 ML ISOVUE 300. Reconstructions: Coronal 3-D MIP reconstructions.Sagittal and coronal. In accordance with CT protocol optimization, one or more of the following dose reduction techniques were utilized for this exam: automated exposure control, adjustment of mA and/or KV based on patient size, or use of iterative reconstructive technique. FINDINGS: Pulmonary Arteries: Diagnostic quality: Adequate through the segmental arteries. No evidence for acute or chronic pulmonary emboli. Lungs/Pleura: No suspicious nodularity or mass. Patchy groundglass is present diffusely bilaterally. No pleural effusions. No endobronchial or endotracheal lesion. Mediastinum: Imaged portions of the thyroid are grossly unremarkable. Thoracic aorta and main pulmonary artery are normal caliber. Heart size is within normal limits. No pericardial effusion. Lymph Nodes: No mediastinal, hilar, or axillary adenopathy. Bones: No suspicious osseous lesions. Visualized chest wall is grossly unremarkable. Partially Imaged Upper Abdomen: No acute abnormalities. IMPRESSION: No acute or chronic pulmonary embolus. RADIA
[2018-04-25] MEDS ORDERED: ACETAMINOPHEN 500 MG TABLET PO STA (20:00)
--- NOTE | 2018-04-25 21:09 | ED Physician Documentation ---
History of Present Illness - Stated complaint Stated Complaint: CHEST PINCH PX - Chief complaint Chief Complaint: Cardiac - History obtained from History obtained from: Patient - Additonal information Additional information: 57-year-old female presents the emergency department with day 3 of right-sided sharp chest pain which is worse with movement. The patient reports increased yard work and since then has had increased right-sided chest pain. The patient denies left-sided chest pain or radiation of the pain or diaphoresis or dyspnea on exertion. The patient does have a history of a stent placed 1 year ago, her symptoms today are different from that episode. The patient denies fevers, chills, cough or abdominal pain. Symptoms are described as moderate. No relieving factors Review of Systems Constitutional: denies: Fever, Chills Eyes: denies: Loss of vision Ears: denies: Ear pain Nose: denies: Congestion Throat: denies: Sore throat Cardiac: reports: Chest pain / pressure Respiratory: denies: Dyspnea GI: denies: Abdominal Pain : denies: Dysuria Skin: denies: Rash Musculoskeletal: denies: Neck pain Neurologic: denies: Generalized weakness Immunocompromised: denies: Chemotherapy PD PAST MEDICAL HISTORY - Past Medical History Cardiovascular: Hypertension, High cholesterol, Coronary artery disease, Angina Respiratory: None Endocrine/Autoimmune: Type 2 diabetes GI: None : None HEENT: None Psych: Anxiety, Panic attacks Musculoskeletal: Osteoarthritis Derm: None - Past Surgical History Past Surgical History: Yes General: Other Ortho: Other Cardiovascular: Coronary stent - Present Medications Home Medications: Ambulatory Orders Medication Instructions Recorded Confirmed Aspirin Chewable [St Oleg 81 mg PO DAILY 08/08/17 08/18/17 Aspirin] Clopidogrel Bisulfate [Clopidogrel] 75 mg PO DAILY 08/08/17 08/18/17 Lisinopril 10 mg PO DAILY 08/08/17 08/18/17 Metformin HCl 500 mg PO BIDWM 08/08/17 08/18/17 Metoprolol Succinate [Toprol Xl] 25 mg PO DAILY 08/08/17 08/18/17 Nitroglycerin [Nitrostat] 0.4 mg SL Q5MIN PRN #100 tablet 08/09/17 08/18/17 Amlodipine Besylate [Norvasc] 2.5 mg PO DAILY #30 tablet 08/18/17 Isosorbide Mononitrate ER [Imdur] 60 mg PO DAILY #30 tablet 08/18/17 - Allergies Allergies/Adverse Reactions: Allergies Allergy/AdvReac Type Severity Reaction Status Date / Time codeine Allergy Unknown Verified 04/25/18 17:27 hydrocodone [From Vicodin] Allergy Unknown Verified 04/25/18 17:27 - Social History Does the pt smoke?: No Smoking Status: Never smoker Does the pt drink ETOH?: No Does the pt have substance abuse?: No - POLST Patient has POLST: No PD ED PE NORMAL - General General: Alert and oriented X 3, No acute distress - HEENT HEENT: Atraumatic, PERRL, EOMI, Ears normal - Neck Neck: Supple, no meningeal sign - Cardiac Cardiac: RRR, Strong equal pulses - Respiratory Respiratory: No respiratory distress - Abdomen Abdomen: Soft, Non tender, Non distended - Derm Derm: Normal color, No rash - Extremities Extremities: No deformity - Neuro Neuro: Alert and oriented X 3, Normal speech - Psych Psych: Normal mood Results - Vitals Vitals: Vital Signs - 24 hr 04/25/18 04/25/18 04/25/18 17:23 19:10 20:45 Temperature 36.8 C 36.2 C L Heart Rate 69 63 53 L Respiratory 18 21 16 Rate Blood Pressure 145/77 H 146/77 H 129/68 O2 Saturation 100 100 100 Oxygen O2 Source Room air - EKG (time done) No standard instances Rhythm: NSR Intervals: Normal [place], Prolonged QT QRS: Normal Other comments: Other comments (Normal sinus rhythm with no acute ischemic changes) - Labs Labs: Laboratory Tests 04/25/18 04/25/18 04/25/18 18:03 18:03 18:03 WBC 6.1 RBC 4.41 Hgb 13.1 Hct 37.9 MCV 85.9 MCH 29.6 MCHC 34.5 RDW 13.0 Plt Count 178 MPV 8.3 Neut # (Auto) 3.2 Lymph # (Auto) 2.0 [place] # (Auto) 0.5 Eos # (Auto) 0.3 Baso # (Auto) 0.1 Absolute Nucleated RBC 0.01 Nucleated RBC % 0.1 Sodium 135 Potassium 4.2 Chloride 102 Carbon Dioxide 23 Anion Gap 10.0 BUN 20 Creatinine 1.0 Estimated GFR (MDRD) 57 L Glucose 135 H Calcium 9.4 Total Bilirubin 0.6 AST 23 ALT 21 Alkaline Phosphatase 53 Troponin I < 0.04 Total Protein 7.7 Albumin 4.4 Globulin 3.3 Albumin/Globulin Ratio 1.3 Lipase 29 04/25/18 20:40 WBC RBC Hgb Hct MCV MCH MCHC RDW Plt Count MPV Neut # (Auto) Lymph # (Auto) [place] # (Auto) Eos # (Auto) Baso # (Auto) Absolute Nucleated RBC Nucleated RBC % Sodium Potassium Chloride Carbon Dioxide Anion Gap BUN Creatinine Estimated GFR (MDRD) Glucose Calcium Total Bilirubin AST ALT Alkaline Phosphatase Troponin I < 0.04 Total Protein Albumin Globulin Albumin/Globulin Ratio Lipase - Rads (name of study) CXR Radiology: Final report received (IMPRESSION: No acute intrathoracic plain film abnormality. ) CTA chest Radiology: Final report received (No acute or chronic pulmonary embolus. ) PD MEDICAL DECISION MAKING - ED course ED course: The patient's symptoms today are not her classic anginal symptoms. I discussed the case with the on-call imagery intelligence Dr. Carrion who is able to review the patient's history. Since the patient's workup in the emergency department has not shown any acute abnormality and the patient's symptoms are somewhat atypical she recommends discharge and follow-up in clinic. On reevaluation the patient is resting comfortably and her symptoms are much improved. I discussed with the patient the plan and she is in agreement. I discussed warning signs and recommended returning to the emergency department for any worsening or concerns. - Sepsis Event Vital Signs: Vital Signs - 24 hr 04/25/18 04/25/18 04/25/18 17:23 19:10 20:45 Temperature 36.8 C 36.2 C L Heart Rate 69 63 53 L Respiratory 18 21 16 Rate Blood Pressure 145/77 H 146/77 H 129/68 O2 Saturation 100 100 100 Oxygen O2 Source Room air Departure - Departure Disposition: 01 Home, Self Care Clinical Impression: Chest pain Qualifiers: Chest pain type: unspecified Qualified Code(s): R07.9 - Chest pain, unspecified Condition: Good Instructions: ED Chest Pain [facility] hospital Follow-Up: Colt Sam MD [Primary Care Provider] - Comments: Please follow-up with your imagery intelligence this coming week for recheck and further evaluation. Please return to the emergency department immediately for worsening symptoms or any concerns
[2018-04-25 22:50] VITALS: BP 142/71
== END 2018-04-25 21:50 | disposition home or self-care (01) ==
LOC: ED 16:47
DX: R07.9 Chest pain, unspecified (principal); I10 Essential (primary) hypertension; E11.9 Type 2 diabetes mellitus without complications; Z79.82 Long term (current) use of aspirin; Z79.84 Long term (current) use of oral hypoglycemic drugs; I45.81 Long QT syndrome; Z95.5 Presence of coronary angioplasty implant and graft
CPT/HCPCS: 36415; 71046; 71275; 80053; 83690; 84484; 85025; 93005; 96360; 96361; 99283; 99284; A9270; Q9967

== ENCOUNTER 2018-06-23 09:21 | Outpatient (CLI) | payer MEDICAID ==
[2018-06-23 14:12] LABS: BASOPHILS # (AUTO) 0.1 10^3/uL (0.0-0.1); BASOPHILS % (AUTO) 1.1 %; EOSINOPHILS # (AUTO) 0.2 10^3/uL (0.0-0.7); EOSINOPHILS % (AUTO) 4.3 %; LYMPHOCYTES # (AUTO) 1.7 10^3/uL (1.5-3.5); LYMPHOCYTES % (AUTO) 36.9 %; MEAN CORPUSCULAR HGB CONC 34.7 g/dL (32.0-36.0); MEAN CORPUSCULAR VOLUME 86.5 fL (81.0-99.0); MEAN PLATELET VOLUME 10.2 fL (7.9-10.8); MONOCYTES # (AUTO) 0.4 10^3/uL (0.0-1.0); MONOCYTES % (AUTO) 8.9 %; NEUTROPHILS # (AUTO) 2.3 10^3/uL (1.5-6.6); NEUTROPHILS % (AUTO) 48.8 %; PLT - PLATELET COUNT 179 10^3/uL (130-450); RED BLOOD COUNT 4.34 10^6/uL (4.20-5.40); RED CELL DISTRIBUTION WIDTH 13.4 % (12.0-15.0); WHITE BLOOD COUNT 4.7 x10^3/uL (4.8-10.8)
[2018-06-23 14:43] LABS: HB2 TOTAL 13.6 g/dL; HEMOGLOBIN A1C 0.65 g/dL; HEMOGLOBIN A1C % 6.5 % (4.6-6.2)
[2018-06-23 14:51] LABS: ALBUMIN 4.2 g/dL (3.2-5.5); ALBUMIN/GLOBULIN RATIO 1.4 (1.0-2.2); ALKALINE PHOSPHATASE 52 IU/L (42-121); ALT ALANINE AMINOTRANSFERASE 19 IU/L (10-60); AST ASPARTATE AMINOTRANSFERASE 20 IU/L (10-42); BILIRUBIN,TOTAL 0.8 mg/dL (0.2-1.0); BUN - BLOOD UREA NITROGEN 19 mg/dL (6-20); CALCIUM 9.3 mg/dL (8.5-10.3); CARBON DIOXIDE - CO2 24 mmol/L (21-32); CHLORIDE 104 mmol/L (101-111); CHOL/HDL RATIO 2.4 (<4.4); CHOLESTEROL 124 mg/dL; CREATININE 0.7 mg/dL (0.4-1.0); GFR - MDRD 87 (>89); GLUCOSE 123 mg/dL (70-100); HDL CHOLESTEROL 52 mg/dL; LDL CHOLESTEROL,CALCULATED 56 mg/dL; LDL/HDL RATIO 1.1 (<4.4); SODIUM 138 mmol/L (135-145); TOTAL PROTEIN 7.2 g/dL (6.7-8.2); VLDL CHOLESTEROL 16 mg/dL
== END 2018-06-23 09:22 | disposition home or self-care (01) ==
LOC: LAB.WCP 09:21
PROVIDERS: ATTEND Family Medicine
DX: N28.9 Disorder of kidney and ureter, unspecified (principal); E03.9 Hypothyroidism, unspecified; I10 Essential (primary) hypertension; E11.9 Type 2 diabetes mellitus without complications
CPT/HCPCS: 36415; 80053; 80061; 82043; 83036; 83721; 84443; 85025

== ENCOUNTER 2018-06-30 11:04 | Emergency (ER) | payer MEDICAID ==
--- NOTE | 2018-06-30 11:31 | ED Physician Documentation ---
PD HPI CHEST PAIN - Stated complaint Stated Complaint: CHEST TIGHTNESS - Chief complaint Chief Complaint: Cardiac - History obtained from History obtained from: Patient - History of Present Illness Timing - onset: How many hours ago (5-6), Today Timing - onset during: Sleep (noted upon awakening to have chest pressure and pain.) Timing - duration: Hours Timing - details: Gradual onset, Still present, Waxing and waning Quality: Pressure, Tightness, Aching Location: Substernal, Left chest Radiation: Back Improved by: Rest. No: Nitro (had some NTG from prior chest pain episode in spring. Uses it periodically but has not ever experienced improvement with it.) Worsened by: Inspiration Associated symptoms: General Weakness, Cough. No: Shortness of air, Feeling faint / dizzy Recently seen: Not recently seen Review of Systems Constitutional: reports: Chills, Myalgias. denies: Fever Nose: reports: Rhinorrhea / runny nose, Congestion Throat: reports: Sore throat Respiratory: reports: Cough GI: denies: Abdominal Pain, Vomiting, Diarrhea : denies: Hematuria, Discharge PD PAST MEDICAL HISTORY - Past Medical History Cardiovascular: Hypertension, High cholesterol, Coronary artery disease, Angina Respiratory: None Endocrine/Autoimmune: Type 2 diabetes GI: None : None HEENT: None Psych: Anxiety, Panic attacks Musculoskeletal: Osteoarthritis Derm: None - Past Surgical History Past Surgical History: Yes General: Other Ortho: Other Cardiovascular: Coronary stent - Present Medications Home Medications: Ambulatory Orders Medication Instructions Recorded Confirmed Aspirin Chewable [St Oleg 81 mg PO DAILY 08/08/17 08/18/17 Aspirin] Clopidogrel Bisulfate [Clopidogrel] 75 mg PO DAILY 08/08/17 08/18/17 Lisinopril 10 mg PO DAILY 08/08/17 08/18/17 Metformin HCl 500 mg PO BIDWM 08/08/17 08/18/17 Metoprolol Succinate [Toprol Xl] 25 mg PO DAILY 08/08/17 08/18/17 Nitroglycerin [Nitrostat] 0.4 mg SL Q5MIN PRN #100 tablet 08/09/17 08/18/17 Amlodipine Besylate [Norvasc] 2.5 mg PO DAILY #30 tablet 08/18/17 Isosorbide Mononitrate ER [Imdur] 60 mg PO DAILY #30 tablet 08/18/17 Dexamethasone [Decadron] 4 mg PO DAILY #5 tablet 10/29/18 Ondansetron Odt [Zofran] 4 mg TL Q6H PRN #15 tablet 06/30/18 - Allergies Allergies/Adverse Reactions: Allergies Allergy/AdvReac Type Severity Reaction Status Date / Time codeine Allergy Unknown Verified 04/25/18 17:27 hydrocodone [From Vicodin] Allergy Unknown Verified 04/25/18 17:27 - Social History Does the pt smoke?: No Smoking Status: Never smoker Does the pt drink ETOH?: No Does the pt have substance abuse?: No - POLST Patient has POLST: No PD ED PE NORMAL - Vitals Vital signs reviewed: Yes - General General: Alert and oriented X 3, No acute distress, Well developed/nourished - HEENT HEENT: Ears normal, Pharynx benign - Neck Neck: Supple, no meningeal sign, No adenopathy - Cardiac Cardiac: RRR, No murmur - Respiratory Respiratory: Clear bilaterally - Abdomen Abdomen: Soft, Non tender - Back Back: No CVA TTP - Derm Derm: Normal color, Warm and dry, No rash - Extremities Extremities: No deformity, No tenderness to palpate, Normal ROM s pain, No virgilio a, No calf tenderness / cord - Neuro Neuro: Alert and oriented X 3, No motor deficit, Normal speech Results - Vitals Vitals: Oxygen O2 Source Room air - EKG (time done) 11:18 Rate: Rate (enter#) (64) Rhythm: NSR [place]: Normal Intervals: Normal ID Ischemia: Normal ST segments, ST elevation c/w repol. No: ST elevation c/w ischemia, ST depression Compare to prior EKG: Old EKG unavailable - Labs Labs: Laboratory Tests 06/30/18 06/30/18 06/30/18 12:15 12:15 12:15 WBC 7.4 RBC 4.38 Hgb 13.0 Hct 37.7 MCV 86.0 MCH 29.8 MCHC 34.6 RDW 13.2 Plt Count 167 MPV 8.6 Neut # (Auto) 5.2 Lymph # (Auto) 1.5 [place] # (Auto) 0.5 Eos # (Auto) 0.1 Baso # (Auto) 0.1 Absolute Nucleated RBC 0.00 Nucleated RBC % 0.0 Sodium 135 Potassium 4.3 Chloride 100 L Carbon Dioxide 23 Anion Gap 12.0 BUN 19 Creatinine 0.8 Estimated GFR (MDRD) 74 L Glucose 130 H Calcium 9.4 Magnesium 1.9 Total Bilirubin 0.6 AST 20 ALT 20 Alkaline Phosphatase 53 Troponin I < 0.04 B-Natriuretic Peptide Total Protein 7.4 Albumin 4.3 Globulin 3.1 Albumin/Globulin Ratio 1.4 Lipase 26 06/30/18 12:15 WBC RBC Hgb Hct MCV MCH MCHC RDW Plt Count MPV Neut # (Auto) Lymph # (Auto) [place] # (Auto) Eos # (Auto) Baso # (Auto) Absolute Nucleated RBC Nucleated RBC % Sodium Potassium Chloride Carbon Dioxide Anion Gap BUN Creatinine Estimated GFR (MDRD) Glucose Calcium Magnesium Total Bilirubin AST ALT Alkaline Phosphatase Troponin I B-Natriuretic Peptide 49 Total Protein Albumin Globulin Albumin/Globulin Ratio Lipase PD MEDICAL DECISION MAKING - ED course Complexity details: reviewed results, considered differential (sounds like chest pressure and pain related to coughing/etc, with chest congestion and not exertional/ischemic pattern. ), d/w patient Departure - Departure Disposition: 01 Home, Self Care Clinical Impression: Chest tightness or pressure, Flu-like symptoms Condition: Stable Record reviewed to determine appropriate education?: Yes Follow-Up: Colt Sam MD [Primary Care Provider] - Dragan Sheffield MD [Physician No Access] - Prescriptions: Dexamethasone [Decadron] 4 mg PO DAILY #5 tablet Ondansetron Odt [Zofran] 4 mg TL Q6H PRN #15 tablet PRN Reason: Nausea / Vomiting Comments: No signs of heart attack or heart failure based on your EKG and blood tests here. Your symptoms sound flulike or viral. He can use ondansetron as needed for nausea. Decadron anti-inflammatory could be used to help general symptoms. He can use some antacid periodically if needed for the stomach discomfort. Recheck if not improving over the next few days. Discharge Date/Time: 06/30/18 14:00
[2018-06-30] MEDS ORDERED: MAG HYDROX/AL HYDROX/SIMETH 30 ML UDC PO STA (11:56)
[2018-06-30] MEDS ORDERED: traMADol 50 MG TABLET PO STA (11:56)
[2018-06-30] MEDS ORDERED: LIDOCAINE VISCOUS 2% 15 ML UDC MM STA (11:56)
[2018-06-30 12:24] LABS: BASOPHILS # (AUTO) 0.1 10^3/uL (0.0-0.1); BASOPHILS % (AUTO) 0.9 %; EOSINOPHILS # (AUTO) 0.1 10^3/uL (0.0-0.7); EOSINOPHILS % (AUTO) 1.9 %; LYMPHOCYTES # (AUTO) 1.5 10^3/uL (1.5-3.5); LYMPHOCYTES % (AUTO) 20.1 %; MEAN CORPUSCULAR HEMOGLOBIN 29.8 pg (27.0-31.0); MEAN CORPUSCULAR HGB CONC 34.6 g/dL (32.0-36.0); MEAN PLATELET VOLUME 8.6 fL (7.9-10.8); MONOCYTES # (AUTO) 0.5 10^3/uL (0.0-1.0); MONOCYTES % (AUTO) 6.6 %; NEUTROPHILS # (AUTO) 5.2 10^3/uL (1.5-6.6); NEUTROPHILS % (AUTO) 70.5 %; PLT - PLATELET COUNT 167 10^3/uL (130-450); RED BLOOD COUNT 4.38 10^6/uL (4.20-5.40); RED CELL DISTRIBUTION WIDTH 13.2 % (12.0-15.0); WHITE BLOOD COUNT 7.4 x10^3/uL (4.8-10.8)
[2018-06-30 12:37] LABS: ALBUMIN 4.3 g/dL (3.2-5.5); ALBUMIN/GLOBULIN RATIO 1.4 (1.0-2.2); BILIRUBIN,TOTAL 0.6 mg/dL (0.2-1.0); CALCIUM 9.4 mg/dL (8.5-10.3); CREATININE 0.8 mg/dL (0.4-1.0); MAGNESIUM 1.9 mg/dL (1.7-2.8); TOTAL PROTEIN 7.4 g/dL (6.7-8.2)
[2018-06-30 13:59] VITALS: BP 148/74
== END 2018-06-30 14:00 | disposition home or self-care (01) ==
LOC: ED 11:04
DX: R07.89 Other chest pain (principal); R05 Cough; I10 Essential (primary) hypertension; E11.9 Type 2 diabetes mellitus without complications; Z79.82 Long term (current) use of aspirin; Z79.84 Long term (current) use of oral hypoglycemic drugs
CPT/HCPCS: 36415; 80053; 83690; 83735; 83880; 84484; 85025; 93005; 99283; A9270

== ENCOUNTER 2018-07-18 16:10 | Emergency (ER) | payer MEDICAID ==
[2018-07-18] MEDS ORDERED: LIDOCAINE VISCOUS 2% 15 ML UDC MM STA (16:50)
[2018-07-18] MEDS ORDERED: MAG HYDROX/AL HYDROX/SIMETH 30 ML UDC PO STA ×2 (16:50→17:30)
[2018-07-18] MEDS ORDERED: PHENobarb/HYOSCY/ATROPINE/SCOP 5 ML UDC PO STA (16:51)
--- NOTE | 2018-07-18 16:51 | ED Physician Documentation ---
PD HPI CHEST PAIN - Stated complaint Stated Complaint: CP - Chief complaint Chief Complaint: Cardiac - History obtained from History obtained from: Patient - History of Present Illness Timing - onset: Yesterday Timing - duration: Days (1) Timing - details: Still present Location: Substernal Worsened by: Eating (Particularly hot food.) - Treatment prior to arrival Treatment prior to arrival: She took Nitrostat, without relief. - Additional information Additional information: The patient is a 57-year-old female, with history of coronary artery disease and gastroesophageal reflux, who presents with substernal chest pressure that started yesterday after a "pop" in her chest. Her pain has continued since that time. It is worse with ingestion of hot food. She denies shortness of breath, nausea or vomiting, or diaphoresis. Past medical history is significant for coronary artery disease for which she is status post coronary stent placement one year ago. She also has history of gastroesophageal reflux, for which she is on omeprazole. Review of Systems Constitutional: denies: Fever Nose: denies: Congestion Throat: denies: Sore throat Cardiac: reports: Chest pain / pressure. denies: Palpitations Respiratory: denies: Dyspnea, Cough GI: denies: Abdominal Pain, Nausea, Vomiting : denies: Dysuria Skin: denies: Rash Musculoskeletal: denies: Neck pain, Back pain, Extremity swelling Neurologic: denies: Headache PD PAST MEDICAL HISTORY - Past Medical History Cardiovascular: Hypertension, High cholesterol, Coronary artery disease, Angina Respiratory: None Endocrine/Autoimmune: Type 2 diabetes GI: None, GERD : None HEENT: None Psych: Anxiety, Panic attacks Musculoskeletal: Osteoarthritis Derm: None - Past Surgical History Past Surgical History: Yes General: Other Ortho: Other Cardiovascular: Coronary stent - Present Medications Home Medications: Ambulatory Orders Medication Instructions Recorded Confirmed Aspirin Chewable [St Oleg 81 mg PO DAILY 08/08/17 08/18/17 Aspirin] Clopidogrel Bisulfate [Clopidogrel] 75 mg PO DAILY 08/08/17 08/18/17 Lisinopril 10 mg PO DAILY 08/08/17 08/18/17 Metformin HCl 500 mg PO BIDWM 08/08/17 08/18/17 Metoprolol Succinate [Toprol Xl] 25 mg PO DAILY 08/08/17 08/18/17 Nitroglycerin [Nitrostat] 0.4 mg SL Q5MIN PRN #100 tablet 08/09/17 08/18/17 Amlodipine Besylate [Norvasc] 2.5 mg PO DAILY #30 tablet 08/18/17 Isosorbide Mononitrate ER [Imdur] 60 mg PO DAILY #30 tablet 08/18/17 Dexamethasone [Decadron] 4 mg PO DAILY #5 tablet 06/30/18 Ondansetron Odt [Zofran] 4 mg TL Q6H PRN #15 tablet 06/30/18 - Allergies Allergies/Adverse Reactions: Allergies Allergy/AdvReac Type Severity Reaction Status Date / Time codeine Allergy Unknown Verified 07/18/18 16:17 hydrocodone [From Vicodin] Allergy Unknown Verified 07/18/18 16:17 - Social History Does the pt smoke?: No Smoking Status: Never smoker Does the pt drink ETOH?: No Does the pt have substance abuse?: No - Immunizations Immunizations are current?: Yes - POLST Patient has POLST: No PD ED PE NORMAL - Vitals Vital signs reviewed: Yes (Initially hypertensive.) - General General: Alert and oriented X 3, Well developed/nourished - HEENT HEENT: Atraumatic, Pharynx benign - Neck Neck: No adenopathy, No JVD - Cardiac Cardiac: RRR, No murmur - Respiratory Respiratory: No respiratory distress, Clear bilaterally - Abdomen Abdomen: Soft, No organomegaly, Other (Tenderness to palpation in the epigastric region, without rebound or guarding.) - Back Back: No CVA TTP - Derm Derm: No rash - Extremities Extremities: No edema, No calf tenderness / cord - Neuro Neuro: Alert and oriented X 3, No motor deficit, Normal speech Results - Vitals Vitals: Oxygen O2 Source Room air - EKG (time done) 16:17 Rate: Rate (enter#) (70) Rhythm: NSR [place]: Normal Intervals: Normal NC QRS: Normal Ischemia: Normal ST segments Compare to prior EKG: Unchanged from prior EKG Computer interpretation: Agree with computer - Labs Labs: Laboratory Tests 07/18/18 07/18/18 07/18/18 16:40 16:40 16:40 WBC 6.6 RBC 4.42 Hgb 12.9 Hct 39.0 MCV 88.2 MCH 29.2 MCHC 33.1 RDW 13.6 Plt Count 186 MPV 8.3 Neut # (Auto) 3.8 Lymph # (Auto) 1.9 [place] # (Auto) 0.5 Eos # (Auto) 0.3 Baso # (Auto) 0.1 Absolute Nucleated RBC 0.00 Nucleated RBC % 0.1 Sodium 134 L Potassium 4.0 Chloride 102 Carbon Dioxide 25 Anion Gap 7.0 BUN 20 Creatinine 1.0 Estimated GFR (MDRD) 57 L Glucose 189 H Calcium 9.2 Total Bilirubin 0.5 AST 22 ALT 19 Alkaline Phosphatase 47 Troponin I < 0.04 Total Protein 7.1 Albumin 4.1 Globulin 3.0 Albumin/Globulin Ratio 1.4 Lipase 30 - Rads (name of study) CXR Radiology: Prelim report reviewed, EMP read contemporaneously, See rad report (Normal single view chest.) PD MEDICAL DECISION MAKING - ED course Complexity details: reviewed old records, reviewed results, re-evaluated patient, considered differential, d/w patient ED course: The patient's presentation is most consistent with gastroesophageal reflux disease. Cardiac ischemia was considered, but is unlikely given the duration of her symptoms, with a normal EKG and normal cardiac enzymes. CBC and chemistry panel, as well as chest x-ray are all unremarkable. Treatment in the emergency department included administration of GI cocktail, which relieved her symptoms. I discussed with her the diagnosis and results of her workup, symptomatic treatment and outpatient follow-up, as well as potentially worrisome signs or symptoms that should prompt reevaluation in the emergency department. Departure - Departure Disposition: 01 Home, Self Care Clinical Impression: Gastroesophageal reflux disease Qualifiers: Esophagitis presence: esophagitis presence not specified Qualified Code(s): K21.9 - Gastro-esophageal reflux disease without esophagitis Condition: Stable Instructions: ED GERD Follow-Up: Colt Sam MD [Primary Care Provider] - Comments: Minimize coffee and clarita. Continue taking omeprazole daily as previously prescribed. You can use liquid antacid, such as Maalox or Mylanta, if you develop recurrent symptoms. Follow-up with your primary physician within 1-2 weeks. Call to schedule an appointment. Return to the emergency department if you develop increasing chest pain, shortness of breath, or otherwise worsening symptoms. Discharge Date/Time: 07/18/18 17:45
[2018-07-18 17:01] LABS: BASOPHILS # (AUTO) 0.1 10^3/uL (0.0-0.1); BASOPHILS % (AUTO) 0.9 %; EOSINOPHILS # (AUTO) 0.3 10^3/uL (0.0-0.7); HGB - HEMOGLOBIN 12.9 g/dL (12.0-16.0); LYMPHOCYTES # (AUTO) 1.9 10^3/uL (1.5-3.5); LYMPHOCYTES % (AUTO) 29.4 %; MEAN CORPUSCULAR HEMOGLOBIN 29.2 pg (27.0-31.0); MEAN CORPUSCULAR HGB CONC 33.1 g/dL (32.0-36.0); MEAN CORPUSCULAR VOLUME 88.2 fL (81.0-99.0); MEAN PLATELET VOLUME 8.3 fL (7.9-10.8); MONOCYTES # (AUTO) 0.5 10^3/uL (0.0-1.0); MONOCYTES % (AUTO) 8.2 %; NEUTROPHILS # (AUTO) 3.8 10^3/uL (1.5-6.6); NEUTROPHILS % (AUTO) 57.5 %; PLT - PLATELET COUNT 186 10^3/uL (130-450); RED BLOOD COUNT 4.42 10^6/uL (4.20-5.40); RED CELL DISTRIBUTION WIDTH 13.6 % (12.0-15.0); WHITE BLOOD COUNT 6.6 x10^3/uL (4.8-10.8)
[2018-07-18 17:16] LABS: ALBUMIN 4.1 g/dL (3.2-5.5); ALBUMIN/GLOBULIN RATIO 1.4 (1.0-2.2); BILIRUBIN,TOTAL 0.5 mg/dL (0.2-1.0); CALCIUM 9.2 mg/dL (8.5-10.3); TOTAL PROTEIN 7.1 g/dL (6.7-8.2)
--- NOTE | 2018-07-18 17:19 | XRAY Report ---
Reason: cp Procedure Date: 07/18/2018 Accession Number: [id number] / [id number] Procedure: XR - Chest 1 View X-Ray CPT Code: 91086 FULL RESULT: EXAM: CHEST RADIOGRAPHY EXAM DATE: 07/18/2018 04:54 PM. CLINICAL HISTORY: Right-sided chest pressure and pain today. COMPARISON: CHEST 2 VIEW 04/25/2018 6:06 PM. TECHNIQUE: 1 view. FINDINGS: Lungs/Pleura: No focal opacities evident. No pleural effusion. No pneumothorax. Mediastinum: Within exam limitations, the cardiomediastinal contour is normal. Other: None. IMPRESSION: Normal single view chest. RADIA
[2018-07-18 17:45] VITALS: BP 122/68
== END 2018-07-18 17:45 | disposition home or self-care (01) ==
LOC: ED 16:10
DX: K21.9 Gastro-esophageal reflux disease without esophagitis (principal); I10 Essential (primary) hypertension; E11.9 Type 2 diabetes mellitus without complications; Z79.82 Long term (current) use of aspirin; Z79.84 Long term (current) use of oral hypoglycemic drugs; I25.10 Atherosclerotic heart disease of native coronary artery without angina pectoris; Z95.5 Presence of coronary angioplasty implant and graft
CPT/HCPCS: 36415; 71045; 80053; 83690; 84484; 85025; 93005; 99283; 99284; A9270

== ENCOUNTER 2018-08-03 12:46 | Emergency (ER) | payer MEDICAID ==
--- NOTE | 2018-08-03 13:48 | ED Physician Documentation ---
PD HPI CHEST PAIN - Stated complaint Stated Complaint: HIGH BP - Chief complaint Chief Complaint: Cardiac - History obtained from History obtained from: Patient - Additional information Additional information: 57-year-old female with a history of coronary artery disease presents the emergency department for evaluation of chest pressure which occurred late this afternoon. The patient had a sudden onset of chest pressure which resolved with nitroglycerin. The patient is also been experiencing "popping "in her chest recently but today was the first time she experience pressure. The patient denies any dyspnea on exertion, diaphoresis, nausea or radiation of the symptoms. Presently the patient has no active chest pressure. The patient was concerned because her Blood pressure was elevated during the event. No other associated symptoms. 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 : None HEENT: None Psych: Anxiety, Panic attacks Musculoskeletal: Osteoarthritis Derm: None - Past Surgical History Past Surgical History: Yes General: Other Ortho: Other Cardiovascular: Coronary stent - Present Medications Home Medications: Ambulatory Orders Medication Instructions Recorded Confirmed Aspirin Chewable [St Oleg 81 mg PO DAILY 08/08/17 08/18/17 Aspirin] Clopidogrel Bisulfate [Clopidogrel] 75 mg PO DAILY 08/08/17 08/18/17 Lisinopril 10 mg PO DAILY 08/08/17 08/18/17 Metformin HCl 500 mg PO BIDWM 08/08/17 08/18/17 Metoprolol Succinate [Toprol Xl] 25 mg PO DAILY 08/08/17 08/18/17 Nitroglycerin [Nitrostat] 0.4 mg SL Q5MIN PRN #100 tablet 08/09/17 08/18/17 Amlodipine Besylate [Norvasc] 2.5 mg PO DAILY #30 tablet 08/18/17 Isosorbide Mononitrate ER [Imdur] 60 mg PO DAILY #30 tablet 08/18/17 Dexamethasone [Decadron] 4 mg PO DAILY #5 tablet 06/30/18 Ondansetron Odt [Zofran] 4 mg TL Q6H PRN #15 tablet 06/30/18 - Allergies Allergies/Adverse Reactions: Allergies Allergy/AdvReac Type Severity Reaction Status Date / Time codeine Allergy Unknown Verified 07/18/18 16:17 hydrocodone [From Vicodin] Allergy Unknown Verified 07/18/18 16:17 - Social History Does the pt smoke?: No Smoking Status: Former smoker Does the pt drink ETOH?: No Does the pt have substance abuse?: No - Immunizations Immunizations are current?: Yes - POLST Patient has POLST: No PD ED PE NORMAL - General General: Alert and oriented X 3, No acute distress - HEENT HEENT: Atraumatic, PERRL, EOMI, Ears normal - Cardiac Cardiac: RRR, Strong equal pulses - Respiratory Respiratory: No respiratory distress, Clear bilaterally - Abdomen Abdomen: Soft, Non tender, Non distended - Derm Derm: Normal color, No rash - Extremities Extremities: No deformity, Normal ROM s pain, No edema - Neuro Neuro: Alert and oriented X 3, Normal speech - Psych Psych: Normal mood Results - Vitals Vitals: Vital Signs - 24 hr 08/03/18 08/03/18 08/03/18 12:55 13:12 13:14 Temperature 36.8 C Heart Rate 66 63 Respiratory 16 13 Rate Blood Pressure 157/79 H 158/104 H Blood Pressure 158/104 H [Left] O2 Saturation 99 97 08/03/18 14:59 Temperature Heart Rate 67 Respiratory 19 Rate Blood Pressure 147/77 H Blood Pressure [Left] O2 Saturation 97 Oxygen O2 Source Room air - EKG (time done) 14:14 Rate: Rate (enter#) Rhythm: NSR Intervals: Normal NM QRS: Normal Ischemia: Normal ST segments - Labs Labs: Laboratory Tests 08/03/18 08/03/18 08/03/18 14:22 14:22 14:22 WBC 6.6 RBC 4.58 Hgb 13.6 Hct 39.6 MCV 86.5 MCH 29.7 MCHC 34.3 RDW 13.4 Plt Count 188 MPV 8.4 Neut # (Auto) 4.1 Lymph # (Auto) 1.7 [place] # (Auto) 0.5 Eos # (Auto) 0.3 Baso # (Auto) 0.1 Absolute Nucleated RBC 0.00 Nucleated RBC % 0.0 Sodium 134 L Potassium 4.2 Chloride 101 Carbon Dioxide 24 Anion Gap 9.0 BUN 21 H Creatinine 0.9 Estimated GFR (MDRD) 65 L Glucose 136 H Calcium 9.3 Total Bilirubin 0.5 AST 23 ALT 22 Alkaline Phosphatase 61 Troponin I < 0.04 Total Protein 7.8 Albumin 4.5 Globulin 3.3 Albumin/Globulin Ratio 1.4 Lipase 25 - Rads (name of study) CXR Radiology: Final report received (NAD) PD MEDICAL DECISION MAKING - ED course ED course: The patient's presentation is concerning for unstable angina. I discussed this with the patient's cardiology group and they agree and agree with the plan for transfer to the facility for further investigation of the patient's symptoms. The findings and plan were discussed with the patient who understands and agrees to the plan. The case was discussed with the hospitalist Dr. Fortune who accepts the patient for transfer. Departure - Departure Disposition: 02 Transfer Acute Care Hosp Clinical Impression: Unstable angina
[2018-08-03 14:31] LABS: BASOPHILS # (AUTO) 0.1 10^3/uL (0.0-0.1); BASOPHILS % (AUTO) 1.2 %; EOSINOPHILS # (AUTO) 0.3 10^3/uL (0.0-0.7); HGB - HEMOGLOBIN 13.6 g/dL (12.0-16.0); LYMPHOCYTES # (AUTO) 1.7 10^3/uL (1.5-3.5); LYMPHOCYTES % (AUTO) 25.6 %; MEAN CORPUSCULAR HEMOGLOBIN 29.7 pg (27.0-31.0); MEAN CORPUSCULAR HGB CONC 34.3 g/dL (32.0-36.0); MEAN CORPUSCULAR VOLUME 86.5 fL (81.0-99.0); MEAN PLATELET VOLUME 8.4 fL (7.9-10.8); MONOCYTES # (AUTO) 0.5 10^3/uL (0.0-1.0); MONOCYTES % (AUTO) 6.9 %; NEUTROPHILS # (AUTO) 4.1 10^3/uL (1.5-6.6); NEUTROPHILS % (AUTO) 62.3 %; PLT - PLATELET COUNT 188 10^3/uL (130-450); RED BLOOD COUNT 4.58 10^6/uL (4.20-5.40); RED CELL DISTRIBUTION WIDTH 13.4 % (12.0-15.0); WHITE BLOOD COUNT 6.6 x10^3/uL (4.8-10.8)
--- NOTE | 2018-08-03 14:40 | XRAY Report ---
Reason: cp Procedure Date: 08/03/2018 Accession Number: [id number] / [id number] Procedure: XR - Chest 2 View X-Ray CPT Code: 68530 FULL RESULT: EXAM: CHEST RADIOGRAPHY EXAM DATE: 08/03/2018 02:11 PM. CLINICAL HISTORY: Chest pain. COMPARISON: CHEST 1 VIEW 07/18/2018 4:46 PM. TECHNIQUE: 2 views. FINDINGS: Lungs/Pleura: No focal opacities evident. No pleural effusion. No pneumothorax. Normal volumes. Mediastinum: Heart and mediastinal contours are unremarkable. Other: None. IMPRESSION: Normal 2-view chest radiography. RADIA
[2018-08-03 14:44] LABS: ALBUMIN 4.5 g/dL (3.2-5.5); ALBUMIN/GLOBULIN RATIO 1.4 (1.0-2.2); BILIRUBIN,TOTAL 0.5 mg/dL (0.2-1.0); CALCIUM 9.3 mg/dL (8.5-10.3); CREATININE 0.9 mg/dL (0.4-1.0); TOTAL PROTEIN 7.8 g/dL (6.7-8.2)
[2018-08-03 18:12] VITALS: BP 147/80
== END 2018-08-03 18:23 | disposition short-term general hospital (02) ==
LOC: ED 12:46
DX: I20.0 Unstable angina (principal); E11.9 Type 2 diabetes mellitus without complications; Z79.82 Long term (current) use of aspirin; Z79.84 Long term (current) use of oral hypoglycemic drugs; Z87.891 Personal history of nicotine dependence; Z86.79 Personal history of other diseases of the circulatory system
CPT/HCPCS: 36415; 71046; 80053; 83690; 84484; 85025; 93005; 99284

== ENCOUNTER 2019-01-05 08:00 | Outpatient (CLI) | payer MEDICAID ==
[2019-01-05 12:46] LABS: BASOPHILS # (AUTO) 0.1 10^3/uL (0.0-0.1); BASOPHILS % (AUTO) 1.8 %; EOSINOPHILS # (AUTO) 0.2 10^3/uL (0.0-0.7); EOSINOPHILS % (AUTO) 4.1 %; HGB - HEMOGLOBIN 12.7 g/dL (12.0-16.0); LYMPHOCYTES # (AUTO) 1.6 10^3/uL (1.5-3.5); MEAN CORPUSCULAR HGB CONC 33.6 g/dL (32.0-36.0); MEAN CORPUSCULAR VOLUME 86.3 fL (81.0-99.0); MONOCYTES # (AUTO) 0.3 10^3/uL (0.0-1.0); NEUTROPHILS # (AUTO) 2.6 10^3/uL (1.5-6.6); NEUTROPHILS % (AUTO) 53.1 %; PLT - PLATELET COUNT 170 10^3/uL (130-450); RED BLOOD COUNT 4.37 10^6/uL (4.20-5.40); RED CELL DISTRIBUTION WIDTH 13.6 % (12.0-15.0); WHITE BLOOD COUNT 4.8 x10^3/uL (4.8-10.8)
[2019-01-05 14:27] LABS: ALBUMIN/GLOBULIN RATIO 1.4 (1.0-2.2); ALKALINE PHOSPHATASE 51 IU/L (42-121); ALT ALANINE AMINOTRANSFERASE 19 IU/L (10-60); AST ASPARTATE AMINOTRANSFERASE 20 IU/L (10-42); BILIRUBIN,TOTAL 0.5 mg/dL (0.2-1.0); BUN - BLOOD UREA NITROGEN 19 mg/dL (6-20); CALCIUM 9.3 mg/dL (8.5-10.3); CARBON DIOXIDE - CO2 24 mmol/L (21-32); CHLORIDE 103 mmol/L (101-111); CHOL/HDL RATIO 2.5 (<4.4); CHOLESTEROL 108 mg/dL; CREATININE 0.8 mg/dL (0.4-1.0); GFR - MDRD 74 (>89); GLUCOSE 152 mg/dL (70-100); HDL CHOLESTEROL 43 mg/dL; LDL CHOLESTEROL,CALCULATED 51 mg/dL; LDL/HDL RATIO 1.2 (<4.4); SODIUM 136 mmol/L (135-145); TOTAL PROTEIN 6.8 g/dL (6.7-8.2); VLDL CHOLESTEROL 14 mg/dL
[2019-01-05 14:43] LABS: HB2 TOTAL 13.8 g/dL; HEMOGLOBIN A1C 0.79 g/dL; HEMOGLOBIN A1C % 7.4 % (4.6-6.2)
== END 2019-01-05 23:59 | disposition home or self-care (01) ==
LOC: LAB.WCP 08:00
PROVIDERS: ATTEND Family Medicine
DX: I10 Essential (primary) hypertension (principal); E11.9 Type 2 diabetes mellitus without complications; E03.9 Hypothyroidism, unspecified
CPT/HCPCS: 36415; 80053; 80061; 82043; 83036; 83721; 84443; 85025

== ENCOUNTER 2019-02-24 00:41 | Emergency (ER) | payer MEDICAID ==
--- NOTE | 2019-02-24 03:02 | ED Physician Documentation ---
PD HPI ABD PAIN - Stated complaint Stated Complaint: ABD PX - Chief complaint Chief Complaint: Abd Pain - History obtained from History obtained from: Patient - History of Present Illness Timing - onset: Today Timing - duration: Minutes Timing - details: Abrupt onset, Now resolved Quality: Sharp, Pain Location: Periumbilical Improved by: Laying still, Position Worsened by: Moving, Position, Palpation Associated symptoms: No: Nausea, Vomiting, Hematemesis, Diarrhea, Constipation Similar symptoms before: Diagnosis (umbilical hernia) Recently seen: Not recently seen - Additional information Additional information: 58-year-old female with a history of type 2 diabetes was putting some cream on her legs for leg cramps and when she went to lift up her leg she had a severe cramp in her abdomen around where her hernia repair has been done. She became frightened by this but states that her pain improved when she went to stand up. She arrives to the emergency department 1 out of 10 pain and states that the pain initially was 10 out of 10. She denies any nausea and vomiting currently she has had a recent illness with vomiting 2 days ago. She has had a hernia repair done to the umbilical hernia with mesh placed 2 years ago. Review of Systems Constitutional: denies: Fever Eyes: denies: Decreased vision Ears: denies: Ear pain Nose: denies: Rhinorrhea / runny nose, Congestion Throat: denies: Sore throat Cardiac: denies: Chest pain / pressure, Palpitations Respiratory: denies: Dyspnea, Cough GI: reports: Abdominal Pain, Nausea (resovled 2 days ago), Vomiting (resolved 3 days ago) : denies: Dysuria, Frequency Skin: denies: Rash Musculoskeletal: reports: Extremity pain. 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 : None HEENT: None Psych: Anxiety, Panic attacks Musculoskeletal: Osteoarthritis Derm: None - Past Surgical History Past Surgical History: Yes General: Other Ortho: Other Cardiovascular: Coronary stent - Present Medications Home Medications: Ambulatory Orders Medication Instructions Recorded Confirmed RX: Aspirin Chewable [St Oleg 81 mg PO DAILY 08/08/17 08/18/17 Aspirin] RX: Clopidogrel Bisulfate 75 mg PO DAILY 08/08/17 08/18/17 [Clopidogrel] RX: Lisinopril 10 mg PO DAILY 08/08/17 08/18/17 RX: Metformin HCl 500 mg PO BIDWM 08/08/17 08/18/17 RX: Metoprolol Succinate [Toprol 25 mg PO DAILY 08/08/17 08/18/17 Xl] Nitroglycerin [Nitrostat] 0.4 mg SL Q5MIN PRN #100 tablet 08/09/17 08/18/17 Amlodipine Besylate [Norvasc] 2.5 mg PO DAILY #30 tablet 08/18/17 Isosorbide Mononitrate ER [Imdur] 60 mg PO DAILY #30 tablet 08/18/17 Ondansetron Odt [Zofran] 4 mg TL Q6H PRN #15 tablet 06/30/18 dexAMETHasone [Decadron] 4 mg PO DAILY #5 tablet 06/30/18 - Allergies Allergies/Adverse Reactions: Allergies Allergy/AdvReac Type Severity Reaction Status Date / Time codeine Allergy Unknown Verified 07/18/18 16:17 hydrocodone [From Vicodin] Allergy Unknown Verified 07/18/18 16:17 - Social History Does the pt smoke?: No Smoking Status: Never smoker Does the pt drink ETOH?: No Does the pt have substance abuse?: No - Immunizations Immunizations are current?: Yes - POLST Patient has POLST: No PD ED PE NORMAL - Vitals Vital signs reviewed: Yes (hypertensive) - General General: Alert and oriented X 3, No acute distress, Well developed/nourished - HEENT HEENT: Atraumatic, PERRL, EOMI - Neck Neck: Supple, no meningeal sign, No bony TTP - Cardiac Cardiac: RRR, No murmur - Respiratory Respiratory: No respiratory distress, Clear bilaterally - Abdomen Abdomen: Normal bowel sounds, Soft, Non tender, Non distended, No organomegaly, Other (There is no evidence of herniation and no significant tenderness) Results - Vitals Vitals: Vital Signs - 24 hr 02/24/19 02/24/19 00:48 03:02 Temperature 36.2 C L 36.4 C L Heart Rate 65 60 Respiratory 20 16 Rate Blood Pressure 165/83 H 143/85 H O2 Saturation 98 98 Oxygen O2 Source Room air Procedures - Bedside sono Bedside sono by EMP: with the use of bedside ultrasound the roque-umbilical area is interrogated with a high frequency probe and there is no evidence of herniation. - IVC sono (time) 0250 Bedside IVC sono: IVC measures (cm) (1.27), Dehydration (est 1 liter deficit) PD MEDICAL DECISION MAKING - ED course Complexity details: reviewed results, re-evaluated patient, considered differential, d/w patient ED course: 58-year-old female who has had a mesh repair done of an umbilical hernia has felt a strain of her abdominal musculature while she was lifting her leg to apply an antispasm cream to her legs.My initial concern was for possible dehydration and this is present on interrogation of the inferior vena cava. I did evaluate the area for evidence of herniation and found none. The patient is feeling well and is discharged home and will hydrate today Departure - Departure Disposition: 01 Home, Self Care Clinical Impression: Dehydration Instructions: ED Dehydration Follow-Up: Colt Sam MD [Primary Care Provider] - Discharge Date/Time: 02/24/19 03:18
[2019-02-24 03:03] VITALS: BP 143/85
== END 2019-02-24 03:18 | disposition home or self-care (01) ==
LOC: ED 00:41
DX: E86.0 Dehydration (principal); R10.33 Periumbilical pain; E11.9 Type 2 diabetes mellitus without complications; Z79.84 Long term (current) use of oral hypoglycemic drugs; I10 Essential (primary) hypertension; Z79.82 Long term (current) use of aspirin; Z87.19 Personal history of other diseases of the digestive system
CPT/HCPCS: 99283; 99284

== ENCOUNTER 2019-04-21 08:00 | Outpatient (CLI) | payer MEDICAID ==
[2019-04-21 13:47] LABS: HB2 TOTAL 12.9 g/dL; HEMOGLOBIN A1C 0.74 g/dL; HEMOGLOBIN A1C % 7.4 % (4.6-6.2)
== END 2019-04-21 23:59 | disposition home or self-care (01) ==
LOC: LAB.N 08:00
PROVIDERS: ATTEND Family Medicine
DX: E11.9 Type 2 diabetes mellitus without complications (principal)
CPT/HCPCS: 36415; 83036

== ENCOUNTER 2019-12-14 08:00 | Outpatient (CLI) | payer MEDICAID ==
[2019-12-14 11:57] LABS: CREATININE,URINE 72.7 mg/dL
[2019-12-14 11:58] LABS: MICROALBUMIN,URINE < 0.2 mg/dL (0-300.0)
[2019-12-14 12:08] LABS: BUN - BLOOD UREA NITROGEN 22 mg/dL (6-20); CALCIUM 8.9 mg/dL (8.5-10.3); CARBON DIOXIDE - CO2 23 mmol/L (21-32); CHLORIDE 101 mmol/L (101-111); CHOL/HDL RATIO 2.8 (<4.4); CHOLESTEROL 125 mg/dL; GLUCOSE 136 mg/dL (70-100); HDL CHOLESTEROL 45 mg/dL; LDL CHOLESTEROL,CALCULATED 63 mg/dL; LDL/HDL RATIO 1.4 (<4.4); SODIUM 130 mmol/L (135-145); VLDL CHOLESTEROL 17 mg/dL
[2019-12-14 13:24] LABS: HEMOGLOBIN A1C 0.67 g/dL; HEMOGLOBIN A1C % 6.9 % (4.6-6.2)
== END 2019-12-14 23:59 | disposition home or self-care (01) ==
LOC: LAB.WCP 08:00
PROVIDERS: ATTEND Family Medicine
DX: E11.9 Type 2 diabetes mellitus without complications (principal); E03.9 Hypothyroidism, unspecified; E78.5 Hyperlipidemia, unspecified
CPT/HCPCS: 36415; 80048; 80061; 82043; 82570; 83036; 83721; 84443

== ENCOUNTER 2020-01-20 08:17 | Outpatient (CLI) | payer MEDICAID ==
[2020-01-20 14:04] LABS: ALBUMIN 3.9 g/dL (3.2-5.5); ALBUMIN/GLOBULIN RATIO 1.2 (1.0-2.2); BILIRUBIN,TOTAL 0.6 mg/dL (0.2-1.0); CALCIUM 9.1 mg/dL (8.5-10.3); TOTAL PROTEIN 7.1 g/dL (6.7-8.2)
== END 2020-01-20 23:59 | disposition home or self-care (01) ==
LOC: LAB.WCP 08:17
PROVIDERS: ATTEND Family Medicine
DX: N18.3 Chronic kidney disease, stage 3 (moderate) (principal)
CPT/HCPCS: 36415; 80053

== ENCOUNTER 2020-02-25 14:19 | Emergency (ER) | payer MEDICAID, OTHER ==
--- NOTE | 2020-02-25 16:22 | XRAY Report ---
PROCEDURE: Neck Soft Tissue INDICATIONS: feels like lower throat is swollen TECHNIQUE: 2 views of the neck were acquired. COMPARISON: None FINDINGS: Airway: The airway appears patent. Soft tissues: Prevertebral soft tissues are normal in thickness. The epiglottis and aryepiglottic f olds appear normal. No soft tissue gas. Bones: No suspicious bony lesions. Visualized cervical spine is normally aligned. Mild cervical st raightening. The lateral uncovertebral arthropathy is present. IMPRESSION: Airway is patent without gross narrowing. However, if concern persists, CT neck is recommended for fu rther evaluation. Reviewed by: Shae Devi MD on 02/25/2020 4:20 PM PDT Approved by: Shae Devi MD on 02/25/2020 4:20 PM PDT Station ID: [id number]
--- NOTE | 2020-02-25 16:57 | ED Physician Documentation ---
History of Present Illness - Stated complaint Stated Complaint: sore throat - Chief complaint Chief Complaint: General - History obtained from History obtained from: Patient - Additonal information Additional information: Patient comes emergency department complaining of feeling as though her throat she states that her acid reflux has been acting up on her, but that also, she has seasonal allergies which keep her feeling constantly stuffy and swollen. She states that she has not been able to get any relief, and is concerned that she is going to lose her airway in the night no chest pain or shortness of breath. No headache, fever or chills. No nausea or vomiting or abdominal pain. No other complaints at this time. Review of Systems Ten Systems: 10 systems reviewed and negative Constitutional: reports: Reviewed and negative Eyes: reports: Reviewed and negative Ears: reports: Reviewed and negative Nose: reports: Rhinorrhea / runny nose Throat: reports: Sore throat, Other (Throat tightness, swelling) Cardiac: reports: Reviewed and negative Respiratory: reports: Reviewed and negative GI: reports: Reviewed and negative : reports: Reviewed and negative Skin: reports: Reviewed and negative Musculoskeletal: reports: Reviewed and negative Neurologic: reports: Reviewed and negative Psychiatric: reports: Reviewed and negative Endocrine: reports: Reviewed and negative Immunocompromised: reports: Reviewed and negative PD PAST MEDICAL HISTORY - Past Medical History Cardiovascular: Hypertension, High cholesterol, Coronary artery disease, Angina Respiratory: None Neuro: None Endocrine/Autoimmune: Type 2 diabetes GI: GERD 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 : None HEENT: None Psych: Anxiety, Panic attacks Musculoskeletal: Osteoarthritis Derm: None - Past Surgical History Past Surgical History: Yes General: Other Ortho: Other Cardiovascular: Coronary stent - Present Medications Home Medications: Ambulatory Orders Medication Instructions Recorded Confirmed Aspirin Chewable [St Oleg 81 mg PO DAILY 08/08/17 08/18/17 Aspirin] Clopidogrel Bisulfate [Clopidogrel] 75 mg PO DAILY 08/08/17 08/18/17 Metformin HCl 500 mg PO BIDWM 08/08/17 08/18/17 Metoprolol Succinate [Toprol Xl] 25 mg PO DAILY 08/08/17 08/18/17 lisinopriL [Lisinopril] 10 mg PO DAILY 08/08/17 08/18/17 Nitroglycerin [Nitrostat] 0.4 mg SL Q5MIN PRN #100 tablet 08/09/17 08/18/17 Amlodipine Besylate [Norvasc] 2.5 mg PO DAILY #30 tablet 08/18/17 Isosorbide Mononitrate ER [Imdur] 60 mg PO DAILY #30 tablet 08/18/17 Ondansetron Odt [Zofran] 4 mg TL Q6H PRN #15 tablet 06/30/18 dexAMETHasone [Decadron] 4 mg PO DAILY #5 tablet 06/30/18 - Allergies Allergies/Adverse Reactions: Allergies Allergy/AdvReac Type Severity Reaction Status Date / Time codeine Allergy Unknown Verified 02/25/20 14:22 hydrocodone [From Vicodin] Allergy Unknown Verified 02/25/20 14:22 lavender (Lavandula Allergy Unknown Verified 02/29/20 10:33 angustifolia) - Social History Does the pt smoke?: No Smoking Status: Never smoker Does the pt drink ETOH?: No Does the pt have substance abuse?: No - Immunizations Immunizations are current?: Yes - POLST Patient has POLST: No PD ED PE NORMAL - Vitals Vital signs reviewed: Yes - General General: Alert and oriented X 3, No acute distress - HEENT HEENT: Atraumatic, PERRL, EOMI, Moist mucous membranes, Pharynx benign - Neck Neck: Supple, no meningeal sign, No adenopathy, Thyroid normal - Cardiac Cardiac: RRR, No murmur, Strong equal pulses - Respiratory Respiratory: No respiratory distress, Clear bilaterally, Other (No stridor.) - Abdomen Abdomen: Soft, Non tender, Non distended - Derm Derm: Normal color, Warm and dry, No rash - Extremities Extremities: No deformity, No edema, No calf tenderness / cord - Neuro Neuro: Alert and oriented X 3, Other (Recently normal) - Psych Psych: Normal mood, Normal affect Results - Vitals Vitals: Oxygen O2 Source Room air - Rads (name of study) ST neck XR Radiology: Final report received, EMP read indepedently, See rad report (neg) PD MEDICAL DECISION MAKING - ED course Complexity details: reviewed results, re-evaluated patient, considered differential, d/w patient ED course: Patient was worked up with soft tissue neck x-ray series, which was found to be unremarkable. I discussed with the patient that I do not find evidence of her throat swelling at this time, and that patient is moving air very well. We have discussed that her symptoms are probably combination of the effects of allergies and of her acid reflux. She should follow-up with her doctor to determine the next best course for her symptomatic management. Patient is deemed stable for discharge home. Departure - Departure Disposition: 01 Home, Self Care Clinical Impression: Sore throat Allergies Qualifiers: Encounter type: initial encounter Qualified Code(s): T78.40XA - Allergy, unspecified, initial encounter GERD (gastroesophageal reflux disease) Qualifiers: Esophagitis presence: without esophagitis Qualified Code(s): K21.9 - Gastro- esophageal reflux disease without esophagitis Condition: Stable Instructions: ED Allergy Seasonal, ED Headache Sinus, ED Pharyngitis Viral Comments: Your neck x-ray looks great. There is no evidence that your neck is swelling up inside and your throat is very open. Most likely, your symptoms are caused by combination of your seasonal allergies and the gastroesophageal reflux. Please follow-up with your primary care physician to discuss the next step in evaluating this. You may use Benadryl, Claritin, or Katie [id number] to help with your allergy symptoms. There is no obvious interaction with the medications you are on that should be expected to be worrisome. Discharge Date/Time: 02/25/20 17:08
[2020-02-25 17:09] VITALS: BP 127/63
== END 2020-02-25 17:08 | disposition home or self-care (01) ==
LOC: ED 14:19
DX: J02.9 Acute pharyngitis, unspecified (principal); K21.9 Gastro-esophageal reflux disease without esophagitis; J30.2 Other seasonal allergic rhinitis; I10 Essential (primary) hypertension; E11.9 Type 2 diabetes mellitus without complications; Z79.84 Long term (current) use of oral hypoglycemic drugs; Z79.82 Long term (current) use of aspirin
CPT/HCPCS: 70360; 93005; 99283

== ENCOUNTER 2020-03-08 13:36 | Outpatient (CLI) | payer MEDICAID | END 2020-03-08 23:59 | disposition home or self-care (01) | LOC: LAB.WCP 13:36 | PROVIDERS: ATTEND Family Medicine | DX: R25.2 Cramp and spasm (principal); R10.9 Unspecified abdominal pain; M35.3 Polymyalgia rheumatica; M25.50 Pain in unspecified joint | CPT/HCPCS: 36415; 83735 ==

== ENCOUNTER 2020-03-09 08:00 | Outpatient (CLI) | payer MEDICAID ==
[2020-03-09 19:30] LABS: H. PYLORIS ANTIGEN STL NEGATIVE (Negative)
== END 2020-03-09 23:59 | disposition home or self-care (01) ==
LOC: LAB.R 08:00
PROVIDERS: ATTEND Family Medicine
DX: R10.9 Unspecified abdominal pain (principal)
CPT/HCPCS: 87338

== ENCOUNTER 2020-03-26 07:04 | Outpatient (CLI) | payer MEDICAID ==
--- NOTE | 2020-03-26 12:11 | Ultrasound Report ---
PROCEDURE: Abdomen Complete INDICATIONS: ABD PX TECHNIQUE: Real-time scanning was performed of the abdominal and retroperitoneal organs, with image documentatio n. COMPARISON: None. FINDINGS: Limited evaluation secondary to body habitus. Liver: Liver is enlarged measuring 20 cm, and demonstrates heterogeneous echotexture. Gallbladder: Demonstrates no evidence of wall thickening. Nonmobile 24 mm calculus within the gallbla dder lumen. Biliary ducts: Intrahepatic bile ducts are non-dilated. Extrahepatic bile duct caliber measures 5 m m. Normal is 6-7 mm or less in diameter, or 10 mm or less post-cholecystectomy. Pancreas: Not well seen, but within normal limits as visualized. Spleen: Spleen is normal in size and homogeneous in echotexture. Kidneys: Kidneys are normal in size and echotexture. Right kidney measures 11.0 cm long; left kidne y measures 11.5 cm long. No hydronephrosis or nephrolithiasis. No solid masses. Aorta: Visualized aorta is normal in caliber at less than 3 cm. Iliacs: Proximal common iliac arteries are normal in caliber at less than 2.5 cm. IVC: Intrahepatic inferior vena cava is patent. Miscellaneous: No free abdominal fluid. IMPRESSION: 1. Limited evaluation demonstrating hepatomegaly and heterogeneous echotexture, which could indicate cirrhosis. 2. Cholelithiasis without evidence of cholecystitis. Reviewed by: Lissy Ryan MD on 03/26/2020 12:09 PM PDT Approved by: Lissy Ryan MD on 03/26/2020 12:09 PM PDT Station ID: [id number]
== END 2020-03-26 07:05 | disposition home or self-care (01) ==
LOC: DI 07:04
PROVIDERS: ATTEND Family Medicine
DX: R10.9 Unspecified abdominal pain (principal); R16.0 Hepatomegaly, not elsewhere classified; K80.20 Calculus of gallbladder without cholecystitis without obstruction
CPT/HCPCS: 76700

== ENCOUNTER 2020-03-27 17:59 | Emergency (ER) | payer MEDICAID ==
[2020-03-27 18:22] LABS: BASOPHILS # (AUTO) 0.1 10^3/uL (0.0-0.1); BASOPHILS % (AUTO) 0.9 %; EOSINOPHILS # (AUTO) 0.2 10^3/uL (0.0-0.7); EOSINOPHILS % (AUTO) 2.7 %; HGB - HEMOGLOBIN 12.8 g/dL (12.0-16.0); LYMPHOCYTES # (AUTO) 2.3 10^3/uL (1.5-3.5); LYMPHOCYTES % (AUTO) 34.6 %; MEAN CORPUSCULAR HEMOGLOBIN 29.4 pg (27.0-31.0); MEAN CORPUSCULAR HGB CONC 34.3 g/dL (32.0-36.0); MEAN CORPUSCULAR VOLUME 85.7 fL (81.0-99.0); MEAN PLATELET VOLUME 10.1 fL (7.9-10.8); MONOCYTES # (AUTO) 0.5 10^3/uL (0.0-1.0); NEUTROPHILS # (AUTO) 3.5 10^3/uL (1.5-6.6); NEUTROPHILS % (AUTO) 53.5 %; PLT - PLATELET COUNT 189 10^3/uL (130-450); RED BLOOD COUNT 4.35 10^6/uL (4.20-5.40); RED CELL DISTRIBUTION WIDTH 12.4 % (12.0-15.0); WHITE BLOOD COUNT 6.6 x10^3/uL (4.8-10.8)
[2020-03-27 18:37] LABS: ALBUMIN 4.4 g/dL (3.2-5.5); ALBUMIN/GLOBULIN RATIO 1.1 (1.0-2.2); BILIRUBIN,TOTAL 0.7 mg/dL (0.2-1.0); CALCIUM 9.4 mg/dL (8.5-10.3); TOTAL PROTEIN 8.3 g/dL (6.7-8.2)
--- NOTE | 2020-03-27 18:40 | ED Physician Documentation ---
PD HPI CHEST PAIN - Stated complaint Stated Complaint: CHEST PX - Chief complaint Chief Complaint: Cardiac - History obtained from History obtained from: Patient - Additional information Additional information: 59-year-old woman with history of coronary disease, single stent to the right coronary artery about 3 years ago. She developed very fleeting pinching chest pain followed by a skipped heartbeat that happened several times this evening. Lasting seconds at a time. This is on top of a more subacute epigastric pain she has had which prompted an ultrasound yesterday showing hepatomegaly and gallstones. No vomiting. No shortness of breath. No pedal edema or calf pain. Review of Systems Constitutional: denies: Fever, Chills Nose: denies: Rhinorrhea / runny nose, Congestion Throat: denies: Sore throat Cardiac: reports: Chest pain / pressure, Palpitations. 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 HEENT: None Psych: Anxiety, Panic attacks Musculoskeletal: Osteoarthritis Derm: None - Past Surgical History Past Surgical History: Yes General: Other Ortho: Other Cardiovascular: Coronary stent - Present Medications Home Medications: Ambulatory Orders Medication Instructions Recorded Confirmed Aspirin Chewable [St Oleg 81 mg PO DAILY 08/08/17 08/18/17 Aspirin] Clopidogrel Bisulfate [Clopidogrel] 75 mg PO DAILY 08/08/17 08/18/17 Metformin HCl 500 mg PO BIDWM 08/08/17 08/18/17 Metoprolol Succinate [Toprol Xl] 25 mg PO DAILY 08/08/17 08/18/17 lisinopriL [Lisinopril] 10 mg PO DAILY 08/08/17 08/18/17 Nitroglycerin [Nitrostat] 0.4 mg SL Q5MIN PRN #100 tablet 08/09/17 08/18/17 Amlodipine Besylate [Norvasc] 2.5 mg PO DAILY #30 tablet 08/18/17 Isosorbide Mononitrate ER [Imdur] 60 mg PO DAILY #30 tablet 08/18/17 Ondansetron Odt [Zofran] 4 mg TL Q6H PRN #15 tablet 06/30/18 dexAMETHasone [Decadron] 4 mg PO DAILY #5 tablet 06/30/18 - Allergies Allergies/Adverse Reactions: Allergies Allergy/AdvReac Type Severity Reaction Status Date / Time codeine Allergy Unknown Verified 02/25/20 14:22 hydrocodone [From Vicodin] Allergy Unknown Verified 02/25/20 14:22 lavender (Lavandula Allergy Unknown Verified 02/29/20 10:33 angustifolia) - Social History Does the pt smoke?: No Smoking Status: Never smoker Does the pt drink ETOH?: No Does the pt have substance abuse?: No - Immunizations Immunizations are current?: Yes - POLST Patient has POLST: No PD ED PE NORMAL - Vitals Vital signs reviewed: Yes - General General: Alert and oriented X 3, No acute distress - HEENT HEENT: PERRL, EOMI - Neck Neck: Supple, no meningeal sign, No bony TTP - Cardiac Cardiac: RRR, No murmur - Respiratory Respiratory: No respiratory distress, Clear bilaterally - Abdomen Abdomen: Non tender - Back Back: No CVA TTP, No spinal TTP - Derm Derm: Normal color, Warm and dry - Extremities Extremities: No edema, No calf tenderness / cord - Neuro Neuro: Alert and oriented X 3, Normal speech Results - Vitals Vitals: Vital Signs - 24 hr 03/27/20 03/27/20 03/27/20 18:14 19:38 20:37 Temperature 37 C Heart Rate 75 62 64 Respiratory 18 18 18 Rate Blood Pressure 152/71 H 131/69 H 123/63 O2 Saturation 99 99 96 Oxygen O2 Source Room air - EKG (time done) 1809 Rate: Rate (enter#) (73) Rhythm: NSR [place]: Normal Intervals: Normal OK QRS: Normal Ischemia: Normal ST segments Computer interpretation: Agree with computer - Labs Labs: Laboratory Tests 03/27/20 03/27/20 03/27/20 18:15 18:15 18:15 WBC 6.6 RBC 4.35 Hgb 12.8 Hct 37.3 MCV 85.7 MCH 29.4 MCHC 34.3 RDW 12.4 Plt Count 189 MPV 10.1 Neut # (Auto) 3.5 Lymph # (Auto) 2.3 [place] # (Auto) 0.5 Eos # (Auto) 0.2 Baso # (Auto) 0.1 Absolute Nucleated RBC 0.00 Nucleated RBC % 0.0 Sodium 130 L Potassium 4.2 Chloride 98 L Carbon Dioxide 21 Anion Gap 11.0 BUN 21 H Creatinine 1.0 Estimated GFR (MDRD) 57 L Glucose 149 H Calcium 9.4 Total Bilirubin 0.7 AST 20 ALT 23 Alkaline Phosphatase 55 Troponin I High Sens 3.7 Total Protein 8.3 H Albumin 4.4 Globulin 3.9 Albumin/Globulin Ratio 1.1 Lipase 31 03/27/20 20:26 WBC RBC Hgb Hct MCV MCH MCHC RDW Plt Count MPV Neut # (Auto) Lymph # (Auto) [place] # (Auto) Eos # (Auto) Baso # (Auto) Absolute Nucleated RBC Nucleated RBC % Sodium Potassium Chloride Carbon Dioxide Anion Gap BUN Creatinine Estimated GFR (MDRD) Glucose Calcium Total Bilirubin AST ALT Alkaline Phosphatase Troponin I High Sens 4.2 Total Protein Albumin Globulin Albumin/Globulin Ratio Lipase PD MEDICAL DECISION MAKING - ED course ED course: The chest pain is quite atypical, fleeting, nonexertional, her EKG is completely nonischemic. Plan on doing 2 troponins and discharging unless we find aberrant findings. Will need to follow-up with her primary care physician for discussion of the positive ultrasound with gallstones. Departure - Departure Disposition: 01 Home, Self Care Clinical Impression: Atypical chest pain Condition: Good Record reviewed to determine appropriate education?: Yes Instructions: ED Chest Pain Atypical Unkn Cause Comments: No evidence of major heart issues on testing tonight, continue current medications and follow-up with your medical assistant secretary, next available appointment. Return if worse.
--- NOTE | 2020-03-27 18:51 | XRAY Report ---
PROCEDURE: Chest 1 View X-Ray INDICATIONS: Chest pain TECHNIQUE: One view of the chest was acquired. COMPARISON: 08/03/2018 FINDINGS: Surgical changes and devices: None. Lungs and pleura: No pleural effusions or pneumothorax. Lungs are clear. Mediastinum: Mediastinal contours appear normal. Heart size is normal. Bones and chest wall: No suspicious bony lesions. Overlying soft tissues appear unremarkable. IMPRESSION: No acute cardiopulmonary pathology. Reviewed by: Isai Vargas MD on 03/27/2020 6:50 PM PDT Approved by: Isai Vargas MD on 03/27/2020 6:50 PM PDT Station ID: [id number]
[2020-03-27 21:06] VITALS: BP 138/78
== END 2020-03-27 21:11 | disposition home or self-care (01) ==
LOC: ED 17:59
DX: R07.89 Other chest pain (principal); I10 Essential (primary) hypertension; E11.9 Type 2 diabetes mellitus without complications; Z79.84 Long term (current) use of oral hypoglycemic drugs
CPT/HCPCS: 36415; 71045; 80053; 83690; 84484; 85025; 93005; 99284

== ENCOUNTER 2020-08-20 11:13 | Outpatient (CLI) | payer MEDICAID ==
--- NOTE | 2020-08-20 18:46 | Ultrasound Report ---
PROCEDURE: Duplex Ext Veins Bilateral INDICATIONS: TAWANDA RAHMAN TECHNIQUE: Real-time imaging, as well as color and pulse Doppler interrogation, were performed of the deep veins of both legs from the inguinal ligament to the popliteal fossa. COMPARISON: None FINDINGS: The deep veins are normally compressible, and free of intraluminal thrombus bilaterally. Color and pulse Doppler demonstrate normal phasic intravascular flow. There is normal augmentation r esponse to distal compression maneuver. IMPRESSION: No DVT in the lower extremities bilaterally. Reviewed by: Harish Carreon on 08/20/2020 6:45 PM PST Approved by: Harish Carreon on 08/20/2020 6:45 PM [facility] Station ID: [id number]
== END 2020-08-20 11:14 | disposition home or self-care (01) ==
LOC: DI 11:13
PROVIDERS: ATTEND Family Medicine
DX: M79.604 Pain in right leg (principal); M79.605 Pain in left leg
CPT/HCPCS: 93970

== ENCOUNTER 2020-09-23 09:28 | Outpatient (CLI) | payer MEDICAID ==
[2020-09-23 12:22] LABS: CHOL/HDL RATIO 2.2 (<4.4); CHOLESTEROL 107 mg/dL; HDL CHOLESTEROL 49 mg/dL; LDL CHOLESTEROL,CALCULATED 43 mg/dL; LDL/HDL RATIO 0.9 (<4.4); VLDL CHOLESTEROL 15 mg/dL
== END 2020-09-23 23:59 | disposition home or self-care (01) ==
LOC: LAB.WCP 09:28
PROVIDERS: ATTEND Internal Medicine Cardiovascular Disease
DX: I25.10 Atherosclerotic heart disease of native coronary artery without angina pectoris (principal); E78.5 Hyperlipidemia, unspecified
CPT/HCPCS: 36415; 80061; 83721

== ENCOUNTER 2020-10-12 19:25 | Outpatient (CLI) | payer MEDICAID ==
--- NOTE | 2020-10-13 09:35 | Ultrasound Report ---
PROCEDURE: Duplex Lwr Ext Arterial Bilat INDICATIONS: PAIN IN BOTH EXTREMITIES TECHNIQUE: Color and pulse Doppler interrogation was performed of both lower extremity arterial systems, with im age documentation. COMPARISON: None FINDINGS: Right lower extremity: Common femoral artery: 106 cm/sec, with triphasic flow. Deep femoral artery: 68 cm/sec, with triphasic flow. Proximal superficial femoral artery: 111 cm/sec, with triphasic flow. Mid superficial femoral artery: 85 cm/sec, with triphasic flow. Distal superficial femoral artery: 82 cm/sec, with triphasic flow. Popliteal artery: 65 cm/sec, with triphasic flow. Posterior tibial artery: 42 cm/sec, with triphasic flow proximally, and monophasic flow distally Anterior tibial artery/dorsalis pedis: 81 cm/sec, with triphasic flow. Ceballos-scale imaging description: Mild scattered calcified plaque Left lower extremity: Common femoral artery: 95 cm/sec, with triphasic flow. Deep femoral artery: 59 cm/sec, with biphasic flow. Proximal superficial femoral artery: 107 cm/sec, with triphasic flow. Mid superficial femoral artery: 97 cm/sec, with triphasic flow. Distal superficial femoral artery: 81 cm/sec, with triphasic flow. Popliteal artery: 88 cm/sec, with biphasic flow. Posterior tibial artery: 60 cm/sec, with monophasic flow proximally, and triphasic flow distally Anterior tibial artery/dorsalis pedis: 140 cm/sec, with triphasic flow. Ceballos-scale imaging description: Mild diffuse scattered plaque IMPRESSION: 1. No significant outflow stenosis bilaterally. 2. Findings suggestive of bilateral posterior tibial and left anterior tibial artery hemodynamically significant stenoses. MR angiography runoff examination is recommended for further assessment. Reviewed by: Lissy Ryan MD on 10/13/2020 9:33 AM [facility] Approved by: Lissy Ryan MD on 10/13/2020 9:33 AM PST Station ID: [id number]
== END 2020-10-12 19:26 | disposition home or self-care (01) ==
LOC: DI 19:25
PROVIDERS: ATTEND Internal Medicine Cardiovascular Disease
DX: M79.604 Pain in right leg (principal); M79.605 Pain in left leg
CPT/HCPCS: 93925

== ENCOUNTER 2020-10-26 08:00 | Outpatient (CLI) | payer MEDICAID ==
[2020-10-26 18:37] LABS: CALCIUM 9.5 mg/dL (8.5-10.3); CREATININE 0.9 mg/dL (0.4-1.0)
[2020-10-26 20:36] LABS: HEMOGLOBIN A1c% 7.6 % (4.27-6.07)
== END 2020-10-26 23:59 | disposition home or self-care (01) ==
LOC: LAB.WCP 08:00
PROVIDERS: ATTEND Family Medicine
DX: E11.9 Type 2 diabetes mellitus without complications (principal); I10 Essential (primary) hypertension
CPT/HCPCS: 36415; 80048; 83036; 83930; 84443

== ENCOUNTER 2021-04-04 12:28 | Outpatient (CLI) | payer MEDICAID ==
[2021-04-04 18:29] LABS: ALBUMIN 4.2 g/dL (3.2-5.5); ALBUMIN/GLOBULIN RATIO 1.4 (1.0-2.2); BILIRUBIN,TOTAL 0.5 mg/dL (0.2-1.0); CALCIUM 9.6 mg/dL (8.5-10.3); CREATININE 0.9 mg/dL (0.4-1.0); POTASSIUM 4.4 mmol/L (3.5-5.0); TOTAL PROTEIN 7.2 g/dL (6.7-8.2)
== END 2021-04-04 23:59 | disposition home or self-care (01) ==
LOC: LAB.N 12:28
PROVIDERS: ATTEND Family Medicine
DX: R10.9 Unspecified abdominal pain (principal)
CPT/HCPCS: 36415; 80053

== ENCOUNTER 2021-05-12 09:34 | Outpatient (CLI) | payer MEDICAID ==
[2021-05-12 13:23] LABS: ESTIMATED AVERAGE GLUCOSE 186 mg/dL (70-100); HEMOGLOBIN A1c% 8.1 % (4.27-6.07)
== END 2021-05-12 23:59 | disposition home or self-care (01) ==
LOC: LAB.WCP 09:34
PROVIDERS: ATTEND Nurse Practitioner
DX: E11.9 Type 2 diabetes mellitus without complications (principal)
CPT/HCPCS: 36415; 83036

== ENCOUNTER 2021-05-16 08:41 | Outpatient (CLI) | payer MEDICAID ==
[2021-05-16 12:34] LABS: CHOL/HDL RATIO 3.2 (<4.4); CHOLESTEROL 145 mg/dL; HDL CHOLESTEROL 46 mg/dL; LDL CHOLESTEROL,CALCULATED 71 mg/dL; LDL/HDL RATIO 1.5 (<4.4); TRIGLYCERIDES 139 mg/dL; VLDL CHOLESTEROL 28 mg/dL
== END 2021-05-16 23:59 | disposition home or self-care (01) ==
LOC: LAB.WCP 08:41
PROVIDERS: ATTEND Nurse Practitioner
DX: E78.5 Hyperlipidemia, unspecified (principal)
CPT/HCPCS: 36415; 80061; 83721

== ENCOUNTER 2021-06-27 16:52 | Emergency (ER) | payer OTHER, MEDICAID ==
[2021-06-27 17:00] VITALS: BP 145/78
[2021-06-27] MEDS ORDERED: ACETAMINOPHEN 325 MG TABLET PO STA (18:05)
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
--- NOTE | 2021-06-27 18:39 | XRAY Report ---
PROCEDURE: Shoulder 3 View LT INDICATIONS: shoulder injury TECHNIQUE: 3 views of the shoulder were acquired. COMPARISON: None. FINDINGS: Bones: No fractures or dislocations. No suspicious bony lesions. Visualized ribs appear intact. Mo derate glenohumeral joint and acromioclavicular joint osteoarthritis. Soft tissues: No suspicious soft tissue calcifications. IMPRESSION: No fracture. No acute osseous lesion. If there persistent symptoms or continued clinical concern for pathology, then repeat plain film radiographs (7-10 days) or advanced imaging (CT, MR, bone scan) juanjo uld be considered for further evaluation. Reviewed by: Chanell Hauser MD, PhD on 06/27/2021 6:38 PM PDT Approved by: Chanell Hauser MD, PhD on 06/27/2021 6:38 PM PDT Station ID: [id number]
== END 2021-06-27 18:54 | disposition home or self-care (01) ==
LOC: ED 16:52
DX: S40.012A Contusion of left shoulder, initial encounter (principal); V89.0XXA Person injured in unspecified motor-vehicle accident, nontraffic, initial encounter; Y93.89 Activity, other specified; Y92.481 Parking lot as the place of occurrence of the external cause
CPT/HCPCS: 73030; 99282; 99283; A9270

== ENCOUNTER 2021-09-20 10:05 | Outpatient (CLI) | payer MEDICAID ==
[2021-09-20 12:45] LABS: BASOPHILS # (AUTO) 0.1 10^3/uL (0.0-0.1); BASOPHILS % (AUTO) 1.1 %; EOSINOPHILS # (AUTO) 0.3 10^3/uL (0.0-0.7); EOSINOPHILS % (AUTO) 5.8 %; HCT - HEMATOCRIT 36.4 % (37.0-47.0); HGB - HEMOGLOBIN 12.1 g/dL (12.0-16.0); LYMPHOCYTES # (AUTO) 1.7 10^3/uL (1.5-3.5); LYMPHOCYTES % (AUTO) 31.9 %; MEAN CORPUSCULAR HEMOGLOBIN 29.2 pg (27.0-31.0); MEAN CORPUSCULAR HGB CONC 33.2 g/dL (32.0-36.0); MEAN CORPUSCULAR VOLUME 87.7 fL (81.0-99.0); MEAN PLATELET VOLUME 11.3 fL (7.9-10.8); MONOCYTES # (AUTO) 0.4 10^3/uL (0.0-1.0); MONOCYTES % (AUTO) 7.7 %; NEUTROPHILS # (AUTO) 2.8 10^3/uL (1.5-6.6); NEUTROPHILS % (AUTO) 53.3 %; PLT - PLATELET COUNT 200 10^3/uL (130-450); RED BLOOD COUNT 4.15 10^6/uL (4.20-5.40); RED CELL DISTRIBUTION WIDTH 12.6 % (12.0-15.0); WHITE BLOOD COUNT 5.3 x10^3/uL (4.8-10.8)
[2021-09-20 13:09] LABS: ALBUMIN/GLOBULIN RATIO 1.3 (1.0-2.2); ALKALINE PHOSPHATASE 57 IU/L (42-121); ALT ALANINE AMINOTRANSFERASE 20 IU/L (10-60); AST ASPARTATE AMINOTRANSFERASE 18 IU/L (10-42); BILIRUBIN,TOTAL 0.4 mg/dL (0.2-1.0); BUN - BLOOD UREA NITROGEN 21 mg/dL (6-20); CALCIUM 9.4 mg/dL (8.5-10.3); CARBON DIOXIDE - CO2 25 mmol/L (21-32); CHLORIDE 102 mmol/L (101-111); CHOL/HDL RATIO 2.2 (<4.4); CHOLESTEROL 106 mg/dL; CREATININE 0.9 mg/dL (0.4-1.0); GFR - MDRD 64 (>89); GLUCOSE 139 mg/dL (70-100); HDL CHOLESTEROL 48 mg/dL; LDL CHOLESTEROL,CALCULATED 45 mg/dL; LDL/HDL RATIO 0.9 (<4.4); POTASSIUM 4.2 mmol/L (3.5-5.0); SODIUM 135 mmol/L (135-145); THYROID STIMULATING HORMONE 3.74 uIU/mL (0.34-5.60); TOTAL PROTEIN 7.1 g/dL (6.7-8.2); TRIGLYCERIDES 64 mg/dL; VLDL CHOLESTEROL 13 mg/dL
[2021-09-20 13:22] LABS: CREATININE,URINE 85.1 mg/dL
[2021-09-20 13:31] LABS: MICROALBUMIN,URINE < 0.2 mg/dL (0-300.0)
[2021-09-21 17:42] LABS: ESTIMATED AVERAGE GLUCOSE 177 mg/dL (70-100); HEMOGLOBIN A1c% 7.8 % (4.27-6.07)
== END 2021-09-20 23:59 | disposition home or self-care (01) ==
LOC: LAB.WCP 10:05
PROVIDERS: ATTEND Nurse Practitioner
DX: I10 Essential (primary) hypertension (principal); E78.5 Hyperlipidemia, unspecified; E11.9 Type 2 diabetes mellitus without complications; Z79.899 Other long term (current) drug therapy
CPT/HCPCS: 36415; 80050; 80061; 82043; 82570; 83036; 83721

== ENCOUNTER 2021-12-28 08:50 | Emergency (ER) | payer MEDICAID ==
[2021-12-28 09:06] VITALS: BP 160/80
--- OUTSIDE RECORDS SUMMARY | 2021-12-28 09:08 | EXTERNAL MEDICAL SUMMARY RPT | Continuity of Care Document ---
:1960 Author Organization [place] Address [address] [place] [address] Phone Care Team Providers Name Role Phone [place] Unavailable Unavailable Allergies No information. Encounters No information. Medications date description facility 20211124 24 HR Metformin hydrochloride 500 MG Ex tended Release [facility] Tablet Problems date description facility 20211124 Unspecified abdominal pain [facility] ital Procedures date description facility 20211124 [facility] Results No information. Vital Signs date measurement value source 20211124 weight_standard 102.51 lb 20211124 weight_metric 46.5 kg 20211124 temperature_standard 97.8 F 20211124 temperature_metric 36.56 C 20211124 height_standard 71 in 20211124 height_metric 180.34 cm 20211124 heart_rate 63 /min 20211124 BP_systolic 150 mm[Hg] 20211124 BP_diastolic 98 mm[Hg] 20211124 BMI 31.5 kg/m2
--- NOTE | 2021-12-28 09:14 | ED Physician Documentation ---
PD HPI URI - Stated complaint Stated Complaint: FEVER, HEADACHE - Chief complaint Chief Complaint: General - History obtained from History obtained from: Patient - History of Present Illness Timing - onset: Yesterday Timing duration: Days (1) Timing details: Abrupt onset, Still present (concerned about COVID) Associated symptoms: Fever, Chills, Nasal congestion, Dry cough, Other (mild headache) Contributing factors: No: Sick contact, Travel, Unimmunized, COPD / asthma Similar symptoms before: Has not had sx before Recently seen: Not recently seen Review of Systems Constitutional: reports: Fever, Chills, Myalgias Nose: reports: Congestion Throat: denies: Sore throat Cardiac: denies: Chest pain / pressure Respiratory: reports: Cough. denies: Dyspnea GI: reports: Nausea. denies: Vomiting, Diarrhea Skin: denies: Rash Musculoskeletal: denies: Neck pain Neurologic: reports: Headache. 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 : None HEENT: None Psych: Anxiety, Panic attacks Musculoskeletal: Osteoarthritis Derm: None - Past Surgical History Past Surgical History: Yes General: Other Ortho: Other Cardiovascular: Coronary stent - Present Medications Home Medications: Ambulatory Orders Medication Instructions Recorded Confirmed Aspirin Chewable [St Oleg 81 mg PO DAILY 08/08/17 08/18/17 Aspirin] Clopidogrel Bisulfate [Clopidogrel] 75 mg PO DAILY 08/08/17 08/18/17 Metformin HCl 500 mg PO BIDWM 08/08/17 08/18/17 Metoprolol Succinate [Toprol Xl] 25 mg PO DAILY 08/08/17 08/18/17 lisinopriL [Lisinopril] 10 mg PO DAILY 08/08/17 08/18/17 Nitroglycerin [Nitrostat] 0.4 mg SL Q5MIN PRN #100 tablet 08/09/17 08/18/17 Amlodipine Besylate [Norvasc] 2.5 mg PO DAILY #30 tablet 08/18/17 Isosorbide Mononitrate ER [Imdur] 60 mg PO DAILY #30 tablet 08/18/17 Ondansetron Odt [Zofran] 4 mg TL Q6H PRN #15 tablet 06/30/18 dexAMETHasone [Decadron] 4 mg PO DAILY #5 tablet 06/30/18 - Allergies Allergies/Adverse Reactions: Allergies Allergy/AdvReac Type Severity Reaction Status Date / Time codeine Allergy Unknown Verified 12/28/21 08:59 hydrocodone [From Vicodin] Allergy Unknown Verified 12/28/21 08:59 lavender (Lavandula Allergy Unknown Verified 12/28/21 08:59 angustifolia) - Social History Does the pt smoke?: No Smoking Status: Never smoker Does the pt drink ETOH?: No Does the pt have substance abuse?: No - Immunizations Immunizations are current?: Yes - POLST Patient has POLST: No PD ED PE NORMAL - Vitals Vital signs reviewed: Yes (good sats) - General General: Alert and oriented X 3, No acute distress, Well developed/nourished - HEENT HEENT: Ears normal, Pharynx benign - Neck Neck: Supple, no meningeal sign, No adenopathy - Cardiac Cardiac: RRR, No murmur - Respiratory Respiratory: Clear bilaterally - Abdomen Abdomen: Soft, Non tender - Derm Derm: Normal color, Warm and dry - Neuro Neuro: Alert and oriented X 3, No motor deficit, Normal speech Results - Vitals Vitals: Vital Signs - 24 hr 12/28/21 08:59 Temperature 36.7 C Heart Rate 88 Respiratory 16 Rate Blood Pressure 160/80 H O2 Saturation 98 Oxygen O2 Source Room air - Labs Labs: Laboratory Tests 12/28/21 09:10 SARS-CoV-2 (PCR) DETECTED A PD MEDICAL DECISION MAKING - ED course Complexity details: considered differential (viral syndrome. Can do COVID testing.), d/w patient Departure - Departure Disposition: 01 Home, Self Care Clinical Impression: Upper respiratory infection Qualifiers: URI type: unspecified URI Qualified Code(s): J06.9 - Acute upper respiratory infection, unspecified Condition: Stable Record reviewed to determine appropriate education?: Yes Instructions: ED Upper Resp Infec No Abx Tx Comments: This sounds like a viral upper respiratory infection. Continue usual medications and also the [id number] medicines you have been taking for congestion. Mild cough medicine is okay. Tylenol every 4-6 hours to help with discomfort pains and fevers. Your COVID test should result possibly tomorrow. Off work today and possibly tomorrow pending illness improvement and COVID test result. Forms: Activity restrictions Discharge Date/Time: 12/28/21 09:33
== END 2021-12-28 09:33 | disposition home or self-care (01) ==
LOC: ED 08:50
DX: U07.1 COVID-19 (principal)
CPT/HCPCS: 99282; 99283

== ENCOUNTER 2022-05-03 11:35 | Outpatient (CLI) | payer MEDICAID ==
[2022-05-03 18:15] LABS: THYROID STIMULATING HORMONE 3.22 uIU/mL (0.34-5.60)
== END 2022-05-03 11:36 | disposition home or self-care (01) ==
LOC: LAB.N 11:35
PROVIDERS: ATTEND Nurse Practitioner
DX: I25.10 Atherosclerotic heart disease of native coronary artery without angina pectoris (principal); L65.9 Nonscarring hair loss, unspecified; Z51.81 Encounter for therapeutic drug level monitoring
CPT/HCPCS: 36415; 84443

== ENCOUNTER 2022-11-26 10:17 | Outpatient (CLI) | payer MEDICAID ==
[2022-11-26 13:04] LABS: BASOPHILS # (AUTO) 0.1 10^3/uL (0.0-0.1); BASOPHILS % (AUTO) 1.3 %; EOSINOPHILS # (AUTO) 0.2 10^3/uL (0.0-0.7); EOSINOPHILS % (AUTO) 4.4 %; HCT - HEMATOCRIT 40.7 % (37.0-47.0); HGB - HEMOGLOBIN 13.3 g/dL (12.0-16.0); LYMPHOCYTES # (AUTO) 1.9 10^3/uL (1.5-3.5); LYMPHOCYTES % (AUTO) 35.6 %; MEAN CORPUSCULAR HEMOGLOBIN 28.8 pg (27.0-31.0); MEAN CORPUSCULAR HGB CONC 32.7 g/dL (32.0-36.0); MEAN CORPUSCULAR VOLUME 88.1 fL (81.0-99.0); MEAN PLATELET VOLUME 11.6 fL (7.9-10.8); MONOCYTES # (AUTO) 0.4 10^3/uL (0.0-1.0); MONOCYTES % (AUTO) 7.1 %; NEUTROPHILS # (AUTO) 2.7 10^3/uL (1.5-6.6); NEUTROPHILS % (AUTO) 51.2 %; PLT - PLATELET COUNT 192 10^3/uL (130-450); RED BLOOD COUNT 4.62 10^6/uL (4.20-5.40); RED CELL DISTRIBUTION WIDTH 13.1 % (12.0-15.0); WHITE BLOOD COUNT 5.2 x10^3/uL (4.8-10.8)
[2022-11-26 13:38] LABS: ALBUMIN 4.3 g/dL (3.2-5.5); ALBUMIN/GLOBULIN RATIO 1.3 (1.0-2.2); ALKALINE PHOSPHATASE 62 IU/L (42-121); ALT ALANINE AMINOTRANSFERASE 22 IU/L (10-60); AST ASPARTATE AMINOTRANSFERASE 20 IU/L (10-42); BILIRUBIN,TOTAL 0.5 mg/dL (0.2-1.0); BUN - BLOOD UREA NITROGEN 23 mg/dL (6-20); CALCIUM 9.3 mg/dL (8.5-10.3); CARBON DIOXIDE - CO2 25 mmol/L (21-32); CHLORIDE 105 mmol/L (101-111); CHOLESTEROL 100 mg/dL; GFR - MDRD 56 (>89); GLUCOSE 264 mg/dL (70-100); HDL CHOLESTEROL 50 mg/dL; LDL CHOLESTEROL,CALCULATED 34 mg/dL; LDL/HDL RATIO 0.7 (<4.4); POTASSIUM 4.6 mmol/L (3.5-5.0); SODIUM 136 mmol/L (135-145); TOTAL PROTEIN 7.5 g/dL (6.7-8.2); TRIGLYCERIDES 78 mg/dL; VLDL CHOLESTEROL 16 mg/dL
[2022-11-26 13:45] LABS: CREATININE,URINE 144.6 mg/dL; MICROALBUM/CREATININE RATIO,UR 5.5 ug/mg (<30.0); MICROALBUMIN,URINE 0.8 mg/dL (0-300.0)
[2022-11-26 13:51] LABS: ESTIMATED AVERAGE GLUCOSE 223 mg/dL (70-100); HEMOGLOBIN A1c% 9.4 % (4.27-6.07)
== END 2022-11-26 10:18 | disposition home or self-care (01) ==
LOC: LAB.N 10:17
PROVIDERS: ATTEND Internal Medicine Cardiovascular Disease
DX: I10 Essential (primary) hypertension (principal); E78.5 Hyperlipidemia, unspecified; E11.9 Type 2 diabetes mellitus without complications
CPT/HCPCS: 36415; 80053; 80061; 82043; 82570; 83036; 83721; 85025

== ENCOUNTER 2023-11-15 11:43 | Emergency (ER) | payer MEDICAID ==
--- NOTE | 2023-11-15 12:25 | XRAY Report ---
PROCEDURE: Chest 1V INDICATIONS: Chest Pain TECHNIQUE: One view of the chest was acquired. COMPARISON: None. FINDINGS: Surgical changes and devices: None. Lungs and pleura: No pleural effusions or pneumothorax. Lungs are clear. Mediastinum: Mediastinal contours appear normal. Heart size is normal. Bones and chest wall: No suspicious bony lesions. Overlying soft tissues appear unremarkable. IMPRESSION: No acute cardiopulmonary process. Reviewed by: Sami Dejesus MD on 11/15/2023 12:23 PM PDT Approved by: Sami Dejesus MD on 11/15/2023 12:23 PM PDT Station ID: [id number]
[2023-11-15 12:38] LABS: BASOPHILS # (AUTO) 0.1 10^3/uL (0.0-0.1); EOSINOPHILS # (AUTO) 0.2 10^3/uL (0.0-0.7); EOSINOPHILS % (AUTO) 4.3 %; HCT - HEMATOCRIT 38.9 % (37.0-47.0); HGB - HEMOGLOBIN 12.7 g/dL (12.0-16.0); LYMPHOCYTES # (AUTO) 1.6 10^3/uL (1.5-3.5); LYMPHOCYTES % (AUTO) 31.8 %; MEAN CORPUSCULAR HEMOGLOBIN 28.2 pg (27.0-31.0); MEAN CORPUSCULAR HGB CONC 32.6 g/dL (32.0-36.0); MEAN CORPUSCULAR VOLUME 86.4 fL (81.0-99.0); MEAN PLATELET VOLUME 10.6 fL (7.9-10.8); MONOCYTES # (AUTO) 0.4 10^3/uL (0.0-1.0); MONOCYTES % (AUTO) 8.6 %; NEUTROPHILS # (AUTO) 2.8 10^3/uL (1.5-6.6); NEUTROPHILS % (AUTO) 54.1 %; PLT - PLATELET COUNT 189 10^3/uL (130-450); RED CELL DISTRIBUTION WIDTH 12.4 % (12.0-15.0); WHITE BLOOD COUNT 5.1 x10^3/uL (4.8-10.8)
[2023-11-15 13:02] LABS: ALBUMIN 4.3 g/dL (3.2-5.5); ALBUMIN/GLOBULIN RATIO 1.7 (1.0-2.2); BILIRUBIN,TOTAL 0.4 mg/dL (0.2-1.0); CALCIUM 9.9 mg/dL (8.5-10.3); CREATININE 0.9 mg/dL (0.6-1.3); POTASSIUM 4.5 mmol/L (3.5-4.5); TOTAL PROTEIN 6.9 g/dL (6.4-8.9)
--- NOTE | 2023-11-15 13:37 | ED Physician Documentation ---
PD HPI CHEST PAIN - Stated complaint Stated Complaint: CHEST PX - Chief complaint Chief Complaint: Cardiac - History obtained from History obtained from: Patient - Additional information Additional information: 63-year-old woman with history of coronary disease and stenting developed a dental infection today with modest pain to a left maxillary molar that she had a known cavity and an foul taste. At about 11:00 [address] and she get started get kind of a tingling sensation across the anterior chest that is now gone. There is no associated shortness of breath. 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 HEENT: None Psych: Anxiety, Panic attacks Musculoskeletal: Osteoarthritis Derm: None - Past Surgical History Past Surgical History: Yes General: Other Ortho: Other Cardiovascular: Coronary stent - Present Medications Home Medications: Ambulatory Orders Medication Instructions Recorded Confirmed Aspirin Chewable [St Oleg 81 mg PO DAILY 08/08/17 03/26/22 Aspirin] Clopidogrel Bisulfate [Clopidogrel] 75 mg PO DAILY 08/08/17 03/26/22 Metoprolol Succinate [Toprol Xl] 25 mg PO DAILY 08/08/17 03/26/22 lisinopriL [Lisinopril] 10 mg PO DAILY 08/08/17 03/26/22 Nitroglycerin [Nitrostat] 0.4 mg SL Q5MIN PRN #100 tablet 08/09/17 03/26/22 Amlodipine Besylate [Norvasc] 2.5 mg PO DAILY #30 tablet 08/18/17 03/26/22 Isosorbide Mononitrate ER [Imdur] 60 mg PO DAILY #30 tablet 08/18/17 03/26/22 Cholecalciferol (Vitamin D3) 125 mcg PO DAILY 03/26/22 03/26/22 [Vitamin D3] Cyanocobalamin (Vitamin B-12) 2,500 mcg PO DAILY 03/26/22 03/26/22 [Vitamin B-12] Evolocumab [Repatha Sureclick] 140 mg SQ Q14D 03/26/22 03/26/22 Metformin HCl [Metformin ER 1,000 mg PO DAILY 03/26/22 03/26/22 Osmotic] Omega3/Dha/Epa/Fish Oil/Vit D3 1 each PO DAILY 03/26/22 03/26/22 [Fish Oil-Vit D3 Softgel] Ubidecarenone [Co Q-10] 100 mg PO DAILY 03/26/22 03/26/22 Evolocumab [Repatha Sureclick] 140 mg SQ 06/26/23 06/26/23 Amoxicillin 500 mg PO TID #30 cap 11/15/23 - Allergies Allergies/Adverse Reactions: Allergies Allergy/AdvReac Type Severity Reaction Status Date / Time codeine Allergy Unknown Verified 11/15/23 11:48 hydrocodone [From Vicodin] Allergy Unknown Verified 11/15/23 11:48 lavender (Lavandula Allergy Unknown Verified 11/15/23 11:48 angustifolia) - Social History Does the pt smoke?: No Smoking Status: Never smoker Does the pt drink ETOH?: No Does the pt have substance abuse?: No - Immunizations Immunizations are current?: Yes - POLST Patient has POLST: No PD ED PE NORMAL - Vitals Vital signs reviewed: Yes - General General: Alert and oriented X 3, No acute distress - Cardiac Cardiac: RRR, No murmur - Respiratory Respiratory: No respiratory distress, Clear bilaterally - Abdomen Abdomen: Normal bowel sounds, Soft, Non tender - Extremities Extremities: No edema, No calf tenderness / cord - Neuro Neuro: Alert and oriented X 3, Normal speech Results - Vitals Vitals: Vital Signs - 24 hr 11/15/23 11:48 Temperature 36.8 C Heart Rate 69 Respiratory 18 Rate Blood Pressure 160/80 H O2 Saturation 99 Oxygen O2 Source Room air - EKG (time done) 1156 EKG releavant findings:: EKG personally interpreted by author of this note. Relevant findings are: Rate: Rate (enter#) (72) Rhythm: NSR Chandler: Normal Intervals: Normal DC QRS: Normal Ischemia: Normal ST segments Computer interpretation: Agree with computer - Labs Labs: Laboratory Tests 11/15/23 11/15/23 12:10 12:31 WBC 5.1 RBC 4.50 Hgb 12.7 Hct 38.9 MCV 86.4 MCH 28.2 MCHC 32.6 RDW 12.4 Plt Count 189 MPV 10.6 Neut # (Auto) 2.8 Lymph # (Auto) 1.6 Hale # (Auto) 0.4 Eos # (Auto) 0.2 Baso # (Auto) 0.1 Absolute Nucleated RBC 0.00 Nucleated RBC % 0.0 Sodium 135 Potassium 4.5 Chloride 103 Carbon Dioxide 24 Anion Gap 8.0 BUN 21 H Creatinine 0.9 Estimated GFR (MDRD) 63 L Glucose 262 H Calcium 9.9 Total Bilirubin 0.4 AST 12 ALT 16 Alkaline Phosphatase 62 Troponin I High Sens 3.6 Total Protein 6.9 Albumin 4.3 Globulin 2.6 Albumin/Globulin Ratio 1.7 Lipase 21 PD Medical Decision Making - ED course ED course: She presents with resolved very atypical chest pain, she does have the risk factor of known coronary disease. She was stented in 2017. Given the pain is resolved with a normal EKG and negative troponin I do not think further workup is necessary today but advised to follow-up with both cardiology and dentistry. 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 If the pain recurs, please return for reevaluation. You asked what your weight was today, when you checked and it was 103.2 kg which is about 227 pounds. Forms: PCP List
[2023-11-15 13:46] LABS: TROPONIN I HIGH SENSITIVITY 3.6 ng/L (2.3-14.8)
[2023-11-15 14:34] VITALS: BP 147/81; O2SAT 100
== END 2023-11-15 14:40 | disposition home or self-care (01) ==
LOC: ED 11:43
DX: R07.9 Chest pain, unspecified (principal); K08.89 Other specified disorders of teeth and supporting structures; E11.9 Type 2 diabetes mellitus without complications; Z79.84 Long term (current) use of oral hypoglycemic drugs
CPT/HCPCS: 36415; 80053; 83690; 84484; 85025; 93005; 99284

== ENCOUNTER 2024-04-27 16:24 | Outpatient (CLI) | payer OTHER, MEDICAID ==
--- NOTE | 2024-04-27 20:31 | XRAY Report ---
PROCEDURE: Shoulder 2+V RT INDICATIONS: R SHOULDER PAIN TECHNIQUE: 3 views of the shoulder were acquired. COMPARISON: None. FINDINGS: Bones: No fractures or dislocations. Moderate acromioclavicular joint osteoarthritic changes are see n with joint space narrowing, subchondral sclerosis and marginal osteophyte formation. No suspicious bony lesions. Visualized ribs appear intact. Soft tissues: No suspicious soft tissue calcifications. The visualized lungs are within normal limi ts. IMPRESSION: No shoulder fracture or dislocation. Moderate acromioclavicular joint osteoarthritis. No gross soft t issue abnormalities. Reviewed by: Isai Castellano MD on 04/27/2024 8:30 PM PDT Approved by: Isai Castellano MD on 04/27/2024 8:30 PM PDT Station ID: [id number]
== END 2024-04-27 16:25 | disposition home or self-care (01) ==
LOC: DI 16:24
PROVIDERS: ATTEND Physician Assistant Surgical
DX: M19.011 Primary osteoarthritis, right shoulder (principal)

== ENCOUNTER 2024-05-12 14:08 | Outpatient (CLI) | payer MEDICAID, OTHER ==
--- NOTE | 2024-05-12 20:01 | MRI Report ---
PROCEDURE: Shoulder RT WO INDICATIONS: R SHOULDER TENDINITIS TECHNIQUE: Noncontrast oblique coronal T2 fast spin echo with fat saturation, oblique sagittal T1 spin echo and T2 fast spin echo with fat saturation, axial T1 spin echo and T2 fast spin echo with fat saturation t hrough the shoulder. COMPARISON: Right shoulder radiograph dated 04/27/2024. FINDINGS: Image quality: Excellent. Rotator cuff: There is full-thickness rupture involving distal supraspinatus at its insertion on rufus ral head with up to 4.1 cm medial retraction of torn tendon fibers to the level of acromion. Low to m oderate grade articular surface partial-thickness tear involving distal infraspinatus at its insertio n on humeral head is seen extending to musculotendinous junction. Moderate grade intrasubstance parti al thickness tear involving distal subscapularis is also seen. Moderate supraspinatus muscle atrophy is noted on sagittal images. Bones and bursae: Moderate acromioclavicular joint osteoarthritic changes are seen. Superior migratio n of humeral head in relation to glenoid is also noted. No acute fracture or dislocation. Moderate dontae int effusion and subacromial subdeltoid bursal fluid is seen, no gross loose bodies. Capsule and soft tissues: Subtle fraying of superior anterior right glenoid labrum with T2 hyperinten se signal is seen concerning for subtle superior anterior labral tear. The long head of the biceps te ndon appears thickened with intrasubstance T2 hyperintense signal at the level of humeral head. The r otator interval appears normal, without fibrosis. The coracohumeral ligament is normal in thickness. IMPRESSION: 1. Full-thickness rupture of distal supraspinatus at its insertion on humeral head with up to 4.1 cm medial retraction of torn tendon fibers to the level of acromium. Moderate supraspinatus muscle atrop hy. 2. Low to moderate grade articular surface partial-thickness tear involving distal infraspinatus exte nding to musculotendinous junction. Moderate grade intrasubstance partial thickness tear involving di stal subscapularis. 3. Superior migration of humeral head in relation to glenoid. Moderate acromioclavicular joint osteoa rthritis. No acute fracture or dislocation. Moderate amount of joint fluid and subacromial subdeltoid bursal fluid, no loose bodies. 4. Finding is suggestive of subtle superior anterior right glenoid labral tear. 5. Tendinosis and low-grade intrasubstance partial thickness tear involving proximal long head of bic eps. Reviewed by: Isai Castellano MD on 05/12/2024 8:00 PM PDT Approved by: Isai Castellano MD on 05/12/2024 8:00 PM PDT Station ID: [id number]
== END 2024-05-12 14:09 | disposition home or self-care (01) ==
LOC: DI 14:08
PROVIDERS: ATTEND Physician Assistant Surgical
DX: M75.121 Complete rotator cuff tear or rupture of right shoulder, not specified as traumatic (principal); M19.011 Primary osteoarthritis, right shoulder; M25.411 Effusion, right shoulder; S46.111A Strain of muscle, fascia and tendon of long head of biceps, right arm, initial encounter

== ENCOUNTER 2024-08-05 21:20 | Observation (INO) ==
[2024-08-05 21:57] LABS: BILIRUBIN,URINE NEGATIVE (NEGATIVE); GLUCOSE, URINE (UA) 250 mg/dL (NEGATIVE); KETONES,URINE (UA) NEGATIVE (NEGATIVE); LEUKOCYTE ESTERASE, URINE NEGATIVE (NEGATIVE); NITRITE,URINE NEGATIVE (NEGATIVE); OCCULT BLOOD,URINE NEGATIVE (NEGATIVE); PROTEIN,URINE NEGATIVE (NEGATIVE); UROBILINOGEN,URINE 0.2 (NORMAL) E.U./dL (NORMAL)
[2024-08-05 21:59] LABS: CLARITY,URINE CLEAR (CLEAR)
[2024-08-05 22:01] LABS: BASOPHILS # (AUTO) 0.1 10^3/uL (0.0-0.1); BASOPHILS % (AUTO) 0.9 %; EOSINOPHILS # (AUTO) 0.2 10^3/uL (0.0-0.7); EOSINOPHILS % (AUTO) 3.2 %; HCT - HEMATOCRIT 38.7 % (37.0-47.0); HGB - HEMOGLOBIN 12.7 g/dL (12.0-16.0); LYMPHOCYTES # (AUTO) 2.3 10^3/uL (1.5-3.5); LYMPHOCYTES % (AUTO) 34.4 %; MEAN CORPUSCULAR HEMOGLOBIN 28.3 pg (27.0-31.0); MEAN CORPUSCULAR HGB CONC 32.8 g/dL (32.0-36.0); MEAN CORPUSCULAR VOLUME 86.4 fL (81.0-99.0); MEAN PLATELET VOLUME 10.3 fL (7.9-10.8); MONOCYTES # (AUTO) 0.6 10^3/uL (0.0-1.0); MONOCYTES % (AUTO) 8.2 %; NEUTROPHILS # (AUTO) 3.6 10^3/uL (1.5-6.6); PLT - PLATELET COUNT 201 10^3/uL (130-450); RED BLOOD COUNT 4.48 10^6/uL (4.20-5.40); RED CELL DISTRIBUTION WIDTH 12.6 % (12.0-15.0); WHITE BLOOD COUNT 6.8 x10^3/uL (4.8-10.8)
[2024-08-05 22:15] LABS: ALBUMIN 4.2 g/dL (3.2-5.5); ALBUMIN/GLOBULIN RATIO 1.6 (1.0-2.2); BILIRUBIN,TOTAL 0.3 mg/dL (0.2-1.0); CALCIUM 9.5 mg/dL (8.5-10.3); CREATININE 2.2 mg/dL (0.6-1.3); POTASSIUM 4.2 mmol/L (3.5-4.5); TOTAL PROTEIN 6.9 g/dL (6.4-8.9)
[2024-08-05] MEDS: SODIUM CHLORIDE 0.9% 1,000 ML IV ONE (22:44)
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
[2024-08-05] MEDS ORDERED: SODIUM CHLORIDE FLUSH 0.9% 10 ML SYRINGE IVP PRN (23:35)
[2024-08-05] MEDS ORDERED: ONDANSETRON 4 MG/2 ML VIAL IVP PRN (23:40)
[2024-08-05] MEDS ORDERED: ACETAMINOPHEN 325 MG TABLET PO PRN (23:40)
[2024-08-05] MEDS ORDERED: NON FORMULARY MED (Omeprazole 40 mg capsule,delayed release(DR/EC)) PO SCH (23:45)
--- NOTE | 2024-08-06 00:07 | HISTORY & PHYSICAL EXAMINATION ---
Chief Complaint Chief Complaint Chief Complaint: generalized weakness, LLQ pain, diarrhea History of Present Illness Admitted From Admitted From:: ED History Obtained From Records Reviewed: EMR History obtained from: Patient and ED staff Exam Limitations: Tele medicine History of Present Illness HPI Comment/Other: 63YOF c HTN, HLD, and DM2 who presented to the ED tonight complaining of generalized weakness, LLQ pain, and diarrhea. She is s/p cholecystectomy. Patient reports she was concerned about the symptoms and came into the ED for evaluation. Patient reports symptoms all started earlier tonight. She report sudden generalized weakness then LLQ pain and diarrhea. She states no blood. No new meds. No sick contact. No travel. She mentions not taking anything at home that made the symptoms better or worse. She is on metformin for her DM2 and was suppose to switch over to insulin but has not. She is awaiting education prior to switching from po to iv diabetes management. She has been on metformin for years. Here in the ED, patient is vitally stable. Abdomen was benign per ED staff. Patient was noted for jump in her creatinine compared to baseline. ED staff subsequently reached out to Hospital Medicine for assistance with further medical management. Review of Systems Status of ROS: 10 or more systems reviewed and unremarkable except as noted in history and below [facility] Social History Social History (Updated 07/27/24 @ 07:44 by ARGENIS FERGUSON LPN) Smoking Status: Former smoker If you are a former smoker, when did you quit? (Date/Year): 07/19 How many cigarettes a day do you smoke? (20 cigarettes=1 Pk): 7 Do you dip or chew tobacco?: No Do you vape?: No Relationship: Do you feel safe in your home environment?: Yes Suffered physical, verbal, emotional, or financial abuse?: No History of Abuse: No POLST Patient has POLST: No Meds/Allgy Home Medications Ambulatory Orders Medication Instructions Recorded Confirmed aspirin 81 mg chewable tablet 81 mg PO DAILY 08/08/17 07/27/24 metoprolol succinate 25 mg 25 mg PO DAILY 08/08/17 07/27/24 tablet,extended release 24 hr (Toprol XL) nitroglycerin 0.4 mg sublingual 0.4 mg sublingual Q5MIN PRN Chest 08/09/17 07/27/24 tablet Pain #100 tabs cholecalciferol (vitamin D3) 125 125 mcg PO DAILY 03/26/22 07/27/24 mcg (5,000 unit) capsule omega-3-dha 120 mg-epa 180 mg-fish 1 ea PO DAILY 03/26/22 07/27/24 oil-vitamin D3 1,000 unit capsule amlodipine 5 mg tablet 5 mg PO QDAY 06/11/24 07/27/24 isosorbide mononitrate 60 mg mg PO 06/11/24 07/27/24 tablet,extended release 24 hr naproxen 500 mg tablet 500 mg PO BID 06/11/24 07/27/24 nystatin 100,000 unit/mL oral 5 ml PO QID 06/11/24 07/27/24 suspension montelukast 10 mg tablet See Rx Instructions .Route 06/17/24 07/27/24 .COMPLEX #90 tabs pen needle, diabetic 31 gauge x #100 ea 06/29/24 07/27/2401/15" (BD Ultra-Fine Short Pen Needle) evolocumab 140 mg/mL subcutaneous 140 mg subcut Q2W 07/27/24 07/27/24 pen injector (Repatha SureClick) insulin glargine 100 unit/mL (3 15 unit subcut QDAY 07/27/24 07/27/24 mL) subcutaneous pen (Basaglar KwikPen U-100 Insulin) omeprazole 40 mg capsule,delayed 40 mg PO QDAY 07/27/24 07/27/24 release clopidogrel 75 mg tablet 75 mg PO DAILY #90 tabs 08/05/24 metformin 1,000 mg tablet,extended 1,000 mg PO DAILY #90 tabs 08/05/24 release 24hr (osmotic) Allergies Allergies Allergy/AdvReac Type Severity Reaction Status Date / Time rosuvastatin Allergy Intermediate Cramps Verified 08/05/24 21:44 codeine Allergy Unknown Verified 08/05/24 21:44 hydrocodone (From Vicodin) Allergy Unknown Verified 08/05/24 21:44 lavender (Lavandula Allergy Unknown Verified 08/05/24 21:44 angustifolia) Skin So Soft Allergy Severe Rash Uncoded 08/05/24 21:44 Exam Constitutional normal general appearance and no apparent distress HENMT normocephalic and head/scalp atraumatic Eyes PERRL Neck/C-Spine visual inspection normal Respiratory breath sounds equal bilaterally, normal respiratory effort and clear to auscultation bilaterally Cardiovascular normal heart rate noted and regular rhythm noted Gastrointestinal abdomen normal to inspection, abdomen soft to palpation and nontender to palpation Genitourinary no CVA tenderness Conclusion/Plan Problem List (1) Gastroenteritis: Plan: base off hx, likely gastroenteritis. will seek procalcitonin for input regarding viral vs bacterial. given lack of leukocytosis, will hold on empiric abx. followup CT abd/pelvis for insight. followup stool stds. pain control. antiemetics. (2) Acute renal failure: Plan: noted sudden fall in renal function. likely pre renal in nature. will empirically cover with iv NS. avoid nephrotoxins as much as possible. gently iv fluid (3) Hyperlipidemia: Plan: managed. continue statin therapy (4) Type 2 diabetes mellitus: Plan: hold home oral meds. will start sq insulin management. monitor on accucheck. RN to give insulin education. (5) Hypertension: Plan: elevated on inital presentation however improved significantly without intervention. restart home meds. monitor on repeat vital checks Plan r/o intraabdominal infection requiring abx. pain control. antiemetics. iv fluid support. avoid nephrotoxins. Lab Results Lab results reviewed: Yes 08/05/24 21:53 08/05/24 21:53 Diagnostic Imaging Results Diagnostic Imaging Results Comments: ordered CT abd/pelvis Core Measures Anticipated LOS I expect patient to be DC'd or transferred within 96 hours.: Yes Issues Hospital Issues and Management Plan: The patient consented to receive this telemedicine service, which I performed via live two-way audiovisual equipment. The patient is at ([facility]) and I am physically in [facility]. A nurse assisted me in the visit. Full code Samir partner SCDs Observation Manish Brown DO Internal Medicine [employer] Tele Hydrogeology Professor DVT/VTE - Prophylaxis VTE/DVT Device ordered at admit?: Yes Telemedicine Consult Details Provider Location & Consult Time Telemedicine consultation conducted via videoconferencing?: Yes List names and roles of persons who participated in consult:: Ed staff, Patient, Shaila Dawson Telemedicine provider location:: [facility] Time Telemedicine consult began:: 23:08 Time Telemedicine consult completed:: 00:08
[2024-08-06] MEDS: INSULIN GLARGINE-YFGN 300 UNIT/3 ML PEN SUBQ SCH (02:26)
[2024-08-06] MEDS: SODIUM CHLORIDE 0.9% 1,000 ML IV SCH (02:27)
[2024-08-06] MEDS: SODIUM CHLORIDE FLUSH 0.9% 10 ML SYRINGE IVP SCH (02:28)
[2024-08-06 05:20] LABS: BASOPHILS # (AUTO) 0.1 10^3/uL (0.0-0.1); BASOPHILS % (AUTO) 0.8 %; EOSINOPHILS # (AUTO) 0.2 10^3/uL (0.0-0.7); EOSINOPHILS % (AUTO) 3.3 %; HCT - HEMATOCRIT 37.6 % (37.0-47.0); HGB - HEMOGLOBIN 12.6 g/dL (12.0-16.0); LYMPHOCYTES # (AUTO) 2.4 10^3/uL (1.5-3.5); LYMPHOCYTES % (AUTO) 35.7 %; MEAN CORPUSCULAR HEMOGLOBIN 28.8 pg (27.0-31.0); MEAN CORPUSCULAR HGB CONC 33.5 g/dL (32.0-36.0); MEAN CORPUSCULAR VOLUME 85.8 fL (81.0-99.0); MEAN PLATELET VOLUME 10.4 fL (7.9-10.8); MONOCYTES # (AUTO) 0.5 10^3/uL (0.0-1.0); MONOCYTES % (AUTO) 7.7 %; NEUTROPHILS # (AUTO) 3.5 10^3/uL (1.5-6.6); NEUTROPHILS % (AUTO) 52.3 %; PLT - PLATELET COUNT 185 10^3/uL (130-450); RED BLOOD COUNT 4.38 10^6/uL (4.20-5.40); RED CELL DISTRIBUTION WIDTH 12.6 % (12.0-15.0); WHITE BLOOD COUNT 6.6 x10^3/uL (4.8-10.8)
[2024-08-06 05:35] LABS: ALBUMIN 4.1 g/dL (3.2-5.5); ALBUMIN/GLOBULIN RATIO 1.6 (1.0-2.2); ALKALINE PHOSPHATASE 69 IU/L (42-121); ALT ALANINE AMINOTRANSFERASE 17 IU/L (10-60); AST ASPARTATE AMINOTRANSFERASE 14 IU/L (10-42); BILIRUBIN,TOTAL 0.3 mg/dL (0.2-1.0); BUN - BLOOD UREA NITROGEN 25 mg/dL (6-20); CALCIUM 9.4 mg/dL (8.5-10.3); CARBON DIOXIDE - CO2 25 mmol/L (21-32); CHLORIDE 103 mmol/L (101-111); CREATININE 1.3 mg/dL (0.6-1.3); GFR - MDRD 42 (>89); GLUCOSE 276 mg/dL (74-104); MAGNESIUM 1.9 mg/dL (1.7-2.3); PHOSPHORUS 3.3 mg/dL (2.5-5.0); POTASSIUM 4.1 mmol/L (3.5-4.5); SODIUM 136 mmol/L (135-145); TOTAL PROTEIN 6.7 g/dL (6.4-8.9)
[2024-08-06 05:42] LABS: PROCALCITONIN < 0.05 ng/mL (<0.5)
[2024-08-06] MEDS: PANTOPRAZOLE 40 MG TABLET PO SCH (06:16)
--- NOTE | 2024-08-06 07:30 | CT Report ---
PROCEDURE: CT Abdomen/Pelvis WO INDICATIONS: LLQ abdominal pain c diarrhea. r/o diverticulitis TECHNIQUE: A CT scan of the abdomen and pelvis was performed without the use of intravenous contrast. Images we re recorded and evaluated at appropriate window settings. Reformats: coronal and sagittal. For radiat ion dose reduction, the following was used: automated exposure control, adjustment of mA and/or kV ac cording to patient size. COMPARISON: None. FINDINGS: Mild nonspecific wall thickening of the distal jejunum with mildly distended bowel measuring up to 2. 5 cm diameter suspicious for mild enteritis with mild surrounding mesenteric edema. A 2.4 cm anterior-superior diverticulum/pseudodiverticulum of the urinary bladder appears to connect to a 3.5 cm CC by 3.5 cm transverse by 1 cm AP soft tissue edema attenuation at the midline anterior abdominal wall at the level of the umbilicus commonly may represent a variant of congenital urachal a nomaly, urachal remnant, urachal cyst, or other process. Urology/surgical outpatient consult suggeste d. No abnormal bladder wall thickening. Mild nonspecific wall thickening of the distal rectum/anus, asymmetrically posteriorly on the right, some of which commonly artifact from partial nondistention although proctitis, hemorrhoids or other a norectal lesion could be considered. Correlation with direct visualization and physical exam should b e performed. Moderate degenerative changes lower thoracic, lumbar spine with disc space narrowing, osteophytes, fa cet osseous and ligamentous hypertrophic changes most notably at T12-L1, L1-2, L2-3, L3-4 with mild t o moderate central stenosis and neural foraminal narrowing at these levels. Liver: Liver is mildly enlarged approximately 18.5 cm in CC dimension of the right lobe. Mild calcifications of the aorta and iliac vessels. Surgical clips status post cholecystectomy. Mild diffuse fatty atrophy of the pancreas. Calcifications of the coronary arteries partially imaged. No CT evidence of bowel obstruction. No significant diverticulosis, no CT evidence of diverticulitis. No focal loculated fluid collection to suggest abscess. No free gas. Lower chest: No pneumothorax, no pleural effusion, heart size within normal limits partially imaged. Biliary tree: No intrahepatic or extrahepatic dilation, accounting for age. Spleen: No splenomegaly. Adrenals: No adrenal nodule. Kidneys and ureters: No hydronephrosis. No renal, ureteral or bladder calculi. Several 1 mm and 2 mm calcifications in the pelvis commonly phleboliths. Stomach, and peritoneum: No gastric dilation. No abnormal wall thickening. No pathologic free fluid. Lymph nodes: No central or retroperitoneal adenopathy. Vessels: No infrarenal aortic aneurysm. Reproductive organs: Unremarkable. Image quality: Diagnostic. Some images limited by beam hardening artifacts. IMPRESSION: Mild wall thickening of the distal jejunum suspected mild enteritis. Congenital urachal anomaly, as discussed above. Urology/surgical outpatient consult suggested. Mild nonspecific wall thickening of the distal rectum/anus as discussed above. Mild hepatomegaly. No hydronephrosis or obstructing renal stone. Reviewed by: Star Arnold MD on 08/06/2024 7:29 AM PST Approved by: Star Arnold MD on 08/06/2024 7:29 AM PST Station ID: [id number]
[2024-08-06] MEDS: MONTELUKAST 10 MG TABLET PO SCH (08:27)
[2024-08-06 08:33] VITALS: O2SAT 96
[2024-08-06] MEDS: INSULIN LISPRO 300 UNIT/3 ML PEN SUBQ SCH (08:35)
[2024-08-06] MEDS: CLOPIDOGREL 75 MG TABLET PO SCH (08:37)
[2024-08-06] MEDS: HEPARIN 5,000 UNIT/ML VIAL SUBQ SCH (08:37)
[2024-08-06] MEDS: ISOSORBIDE MONONITRATE ER 30 MG TABLET PO SCH (08:37)
[2024-08-06] MEDS: ASPIRIN CHEW 81 MG TABLET PO SCH (08:37)
[2024-08-06] MEDS: amLODIPine 5 MG TABLET PO SCH (08:37)
[2024-08-06] MEDS: METOPROLOL SUCCINATE 25 MG TABLET PO SCH (08:37)
--- NOTE | 2024-08-06 11:04 | Discharge Summary ---
Discharge Summary Admit Date: 08/05/24 Discharge Date: 08/06/24 Discharging Provider: Dr. Jet Henriquez Code Status: Attempt Resuscitation Discharge Facility Name: Home DIAGNOSES Admission Diagnoses: Gastroenteritis Acute renal failure Type 2 diabetes mellitus Hypertension Discharge Diagnoses with Status of Each Condition: Gastroenteritisresolved. Patient is no longer having any diarrhea. Received IV fluids. CT abdomen/pelvis was also done which showed mild wall thickening of distal jejunum, mild nonspecific wall thickening of distal rectum/anus. Acute kidney injuryresolved. Patient came in with creatinine of 2.2, it is now 1.3. Type 2 diabetes mellituspatient is supposed to follow-up with diabetes director medicare sales in the outpatient setting, and was started on insulin AKA prescribed it, but she has not started taking it. However she has had difficulty with this appointment with the diabetes care management team. She is only taking metformin currently. She does have some long-acting insulin at home. Her A1c is pending. She was taught by the nurse here how to use her pen needle that she already has at home. Advised to continue what her primary care physician, Kristi Bates, prescribed her in terms of insulin use at home at this time. She has a follow-up appointment already, advised to keep this, and track her sugars as well. Hypertensioncontinue home medications including metoprolol, Imdur. Peripheral arterial diseasecontinue aspirin and Plavix. HPI History of Present Illness: Per Dr. Brown: 63YOF c HTN, HLD, and DM2 who presented to the ED tonight complaining of generalized weakness, LLQ pain, and diarrhea. She is s/p cholecystectomy. Patient reports she was concerned about the symptoms and came into the ED for evaluation. Patient reports symptoms all started earlier tonight. She report sudden generalized weakness then LLQ pain and diarrhea. She states no blood. No new meds. No sick contact. No travel. She mentions not taking anything at home that made the symptoms better or worse. She is on metformin for her DM2 and was suppose to switch over to insulin but has not. She is awaiting education prior to switching from po to iv diabetes management. She has been on metformin for years. Here in the ED, patient is vitally stable. Abdomen was benign per ED staff. Patient was noted for jump in her creatinine compared to baseline. ED staff subsequently reached out to Hospital Medicine for assistance with further medical management. CONSULTS | PROCEDURES Consultations: Nutrition, diabetes care management Procedures: CT abdomen/pelvis HOSPITAL COURSE Hospital Course: Patient is a 63-year-old female with a history of hypertension, insulin- dependent diabetes mellitus who presented with 1 day of diarrhea, dizziness, lightheadedness. On admission, she was noted to have an acute kidney injury with a creatinine of 2.3. With IV fluids, this resolved completely to 1.3. She also had a CT abdomen/pelvis done which showed some mild nonspecific thickening indicative of some enteritis. Of note, it did show a 2.4 cm anterior superior diverticulum/pseudodiverticulum of the urinary bladder attached midline anterior abdominal wall at the level of umbilicus which may be a variant of a congenital urachal anomaly or cyst. This was explained to her, and she was advised to follow-up with a urologist in the outpatient setting; she has had some feelings of abdominal fullness and tenderness in the past, and this may be attributable to this. Her diarrhea resolved, she no longer felt dizzy, and she was tolerating p.o. intake well. As such, she was deemed stable for discharge home. While she was here, the RN did show her how to use the pen needle, and she was advised to start the insulin regimen as prescribed by her primary care physician. She was also advised to follow-up with her primary care physician within the next few weeks for close monitoring of her diabetes and sugars. She demonstrated understanding, and as such was discharged home. ALLERGIES Allergies Allergy/AdvReac Type Severity Reaction Status Date / Time rosuvastatin Allergy Intermediate Cramps Verified 08/05/24 21:44 codeine Allergy Unknown Verified 08/05/24 21:44 hydrocodone (From Vicodin) Allergy Unknown Verified 08/05/24 21:44 lavender (Lavandula Allergy Unknown Verified 08/05/24 21:44 angustifolia) Skin So Soft Allergy Severe Rash Uncoded 08/05/24 21:44 MEDICATIONS Ambulatory Orders Medication Instructions Recorded Confirmed aspirin 81 mg chewable tablet 81 mg PO DAILY 08/08/17 08/06/24 metoprolol succinate 25 mg 25 mg PO DAILY 08/08/17 08/06/24 tablet,extended release 24 hr (Toprol XL) nitroglycerin 0.4 mg sublingual 0.4 mg sublingual Q5MIN PRN Chest 08/09/17 08/06/24 tablet Pain #100 tabs cholecalciferol (vitamin D3) 125 125 mcg PO DAILY 03/26/22 08/06/24 mcg (5,000 unit) capsule omega-3-dha 120 mg-epa 180 mg-fish 1 ea PO DAILY 03/26/22 08/06/24 oil-vitamin D3 1,000 unit capsule amlodipine 5 mg tablet 10 mg PO QDAY 06/11/24 08/06/24 isosorbide mononitrate 60 mg 60 mg PO DAILY 06/11/24 08/06/24 tablet,extended release 24 hr montelukast 10 mg tablet See Rx Instructions .Route 06/17/24 08/06/24 .COMPLEX #90 tabs pen needle, diabetic 31 gauge x #100 ea 06/29/24 07/27/2401/15" (BD Ultra-Fine Short Pen Needle) evolocumab 140 mg/mL subcutaneous 140 mg subcut Q2W 07/27/24 08/06/24 pen injector (Repatha SureClick) insulin glargine 100 unit/mL (3 15 unit subcut QDAY 07/27/24 08/06/24 mL) subcutaneous pen (Basaglar KwikPen U-100 Insulin) omeprazole 40 mg capsule,delayed 40 mg PO QDAY 07/27/24 08/06/24 release clopidogrel 75 mg tablet 75 mg PO DAILY #90 tabs 08/05/24 08/06/24 metformin 1,000 mg tablet,extended 1,000 mg PO DAILY #90 tabs 08/05/24 08/06/24 release 24hr (osmotic) PHYSICAL EXAM AT DISCHARGE General Appearance: positive Alert; negative Anxious or Lethargic Eyes Bilateral: positive Normal inspection, PERRL and EOMI ENT: positive ENT inspection nml, Pharynx nml and No signs of dehydration Neck: positive Nml inspection, Thyroid nml and No JVD Respiratory: positive Chest non-tender, No respiratory distress and Breath sounds nml; negative Wheezes, Rales or Rhonchi Cardiovascular: positive Regular rate & rhythm, No murmur and No gallop; negative Irregularly irregular, PMI displaced laterally, Diastolic murmur or Friction rub Peripheral Pulses: positive 2+ Abdomen: positive Non-tender, No organomegaly, Nml bowel sounds and No distention; negative Tenderness, Guarding, Rebound, Hepatomegaly or Splenomegaly Back: positive Nml inspection; negative CVA tenderness (R) or CVA tenderness (L) Skin: positive Color nml, No rash, Warm and Dry Extremities: positive Non-tender, Full ROM and Nml appearance Neurologic/Psychiatric: positive Oriented x3, Motor nml and Mood/affect nml LABS 08/06/24 05:00 08/06/24 05:00 DIAGNOSTIC IMAGING Diagnostic Imaging Results: Final report reviewed QUALITY (Female Hip Fx Only) Was patient sent home on osteoporosis medication?: No FOLLOW UP Follow Up: Follow up with PCP and urologist. TIME SPENT Time Spent in Discharge (Minutes): 30 Discharge Plan Discharge Patient Disposition: Home, Self Care Condition: Stable Prescriptions: Continued montelukast 10 mg tablet See Rx Instructions .ROUTE .COMPLEX Qty: 90 4RF Dose Instruction: TAKE ONE TABLET BY MOUTH ONE TIME DAILY Rx Instructions: TAKE ONE TABLET BY MOUTH ONE TIME DAILY (DME) pen needle, diabetic [BD Ultra-Fine Short Pen Needle] 31 gauge x 5/16" needle See Rx Instructions .Route Qty: 100 4RF Rx Instructions: Use one needle with insulin daily clopidogrel 75 mg tablet 75 mg PO DAILY Qty: 90 3RF Rx Instructions: Take 1 tablet by mouth one time daily aspirin 81 MG tablet,chewable 81 mg PO DAILY metoprolol succinate [Toprol XL] 25 MG tablet extended release 24 hr 25 mg PO DAILY nitroglycerin 0.4 MG tablet, sublingual 0.4 mg sublingual Q5MIN PRN (Reason: Chest Pain) Qty: 100 0RF Rx Instructions: 1 sl q 5 min x 3 prn chest pain cholecalciferol (vitamin D3) 125 MCG capsule 125 mcg PO DAILY [id number] oil-vit D3 1 EACH capsule 1 ea PO DAILY Repatha SureClick 140 mg/mL pen injector 140 mg subcut Q2W omeprazole 40 mg capsule,delayed release(DR/EC) 40 mg PO QDAY amlodipine 5 mg tablet 10 mg PO QDAY isosorbide mononitrate 60 mg tablet extended release 24 hr 60 mg PO DAILY Patient Comments: TAKE ONE TABLET BY MOUTH ONE TIME DAILY insulin glargine [Basaglar KwikPen U-100 Insulin] 100 unit/mL (3 mL) insulin pen 15 unit subcut QDAY Patient Comments: start with 15u daily in AM, then increase by 1 unit every 3 days until fasting glucose <120. Max dose 50 u/day Held metformin 1,000 mg tablet extended release 24hr 1,000 mg PO DAILY Qty: 90 3RF Hold Instructions: Resume on 08/13/24. Please continue to track your sugars, and see your PCP for further management of your insulin. Rx Instructions: Take 1 tablet by mouth once a day. Diet: Diabetic Health Concerns: You came in because you had episodes of diarrhea at home. This made you feel lightheaded and dizzy and not like yourself. When you arrived, we noted that you had an acute kidney injury. We started you on IV fluids, which improved this rapidly. Please have this rechecked at your next PCP appointment. We also did a CT scan of your stomach and it showed some thickening of parts of your bowels which was indicative of likely gastroenteritis or a stomach bug. We do not think you need antibiotics for this. We talked about how you may have had a urachal anomaly, AKA the connection between your bladder and your abdominal wall/umbilicus. You likely have had this since . If you would like, you can follow-up with a urologist in the outpatient setting for further discussion regarding this. Our family living educator spoke with you about injecting insulin. You will continue to follow-up with her in the outpatient setting. I have reviewed your family medicine providers instructionsshe would like you to start with long-acting insulin. Please continue to keep your glucose log and bring it into your next appointment that you already have scheduled with her for 08/17. I have also attached diet instructions. We are glad you are feeling better, thank you for allowing us to take care of you. Print Language: Jamaican Patient Instructions: Diabetes Healthy Meals, Diabetes Carbs, Diabetes Meal Planning Stand Alone Forms: PCP List
[2024-08-06 11:11] LABS: ESTIMATED AVERAGE GLUCOSE 232 mg/dL (70-100); HEMOGLOBIN A1c% 9.7 % (4.27-6.07)
--- NOTE | 2024-08-06 12:46 | PHARMACY PROGRESS NOTE ---
Best Possible Medication History Admit Date and Time: 08/05/24 2085 Home Medications Medication Instructions Recorded Confirmed Type aspirin 81 mg chewable tablet 81 mg PO DAILY 08/08/17 08/06/24 History metoprolol succinate 25 mg 25 mg PO DAILY 08/08/17 08/06/24 History tablet,extended release 24 hr (Toprol XL) nitroglycerin 0.4 mg sublingual 0.4 mg sublingual Q5MIN PRN Chest 08/09/17 08/06/24 Rx tablet Pain #100 tabs cholecalciferol (vitamin D3) 125 125 mcg PO DAILY 03/26/22 08/06/24 History mcg (5,000 unit) capsule omega-3-dha 120 mg-epa 180 mg-fish 1 ea PO DAILY 03/26/22 08/06/24 History oil-vitamin D3 1,000 unit capsule amlodipine 5 mg tablet 10 mg PO QDAY 06/11/24 08/06/24 History isosorbide mononitrate 60 mg 60 mg PO DAILY 06/11/24 08/06/24 History tablet,extended release 24 hr montelukast 10 mg tablet See Rx Instructions .Route 06/17/24 08/06/24 Rx .COMPLEX #90 tabs pen needle, diabetic 31 gauge x #100 ea 06/29/24 07/27/24 Rx 5/16" (BD Ultra-Fine Short Pen Needle) evolocumab 140 mg/mL subcutaneous 140 mg subcut Q2W 07/27/24 08/06/24 History pen injector (Repatha SureClick) insulin glargine 100 unit/mL (3 15 unit subcut QDAY 07/27/24 08/06/24 History mL) subcutaneous pen (Basaglar KwikPen U-100 Insulin) omeprazole 40 mg capsule,delayed 40 mg PO QDAY 07/27/24 08/06/24 History release clopidogrel 75 mg tablet 75 mg PO DAILY #90 tabs 08/05/24 08/06/24 Rx metformin 1,000 mg tablet,extended 1,000 mg PO DAILY #90 tabs 08/05/24 08/06/24 Rx release 24hr (osmotic) Processed by: Pharmacy Medications reviewed in ED?: No Medication History completed: Yes Patient Interview: Completed Secondary Source(s): Pharmacy records and Insurance records [facility] Statement: As the person ultimately responsible for medication therapy, providers are able to order a medication from an existing home medication list in [facility] via the "Reconcile Routine" prior to Confirmation of that medication by system support administrator. Such practice is discouraged except when the physician, in their clinical judgment, deems that a medical need exists for a medication without regard to previous use.
== END 2024-08-06 14:55 | disposition home or self-care (01) ==
LOC: MS2 21:20 → ED 21:20 → MS2 08-06 00:31
PROVIDERS: ADMIT Internal Medicine; ATTEND Internal Medicine
DX: I10 Essential (primary) hypertension; N32.3 Diverticulum of bladder; Z90.49 Acquired absence of other specified parts of digestive tract; K52.9 Noninfective gastroenteritis and colitis, unspecified; E78.5 Hyperlipidemia, unspecified; Z79.84 Long term (current) use of oral hypoglycemic drugs; N17.9 Acute kidney failure, unspecified; E11.51 Type 2 diabetes mellitus with diabetic peripheral angiopathy without gangrene; Z87.891 Personal history of nicotine dependence